=== PATIENT | female | born 1960 | race Hispanic/Latino ===

== ENCOUNTER 2019-03-06 03:20 | Inpatient (IN) | payer OTHER ==
[2019-03-06] MEDS ORDERED: NALOXONE 2 MG/2 ML INJ ONE (03:42)
[2019-03-06 03:58] LABS: Basophils # (Auto) 0.1 K/mm3 (0.0-0.1); Basophils % (Auto) 0.6 % (0.0-1.8); Eosinophils # (Auto) 0.4 K/mm3 (0.0-0.4); Hematocrit 40.4 % (30.3-42.9); Hemoglobin 13.2 gm/dl (10.1-14.3); Lymphocytes # (Auto) 3.6 K/mm3 (1.2-5.4); Lymphocytes % (Auto) 18.5 % (13.4-35.0); Mean Corpuscular HGB Conc 33 % (30-34); Mean Corpuscular Volume 92 fl (79-97); Monocytes # (Auto) 2.4 K/mm3 (0.0-0.8); Monocytes % (Auto) 12.4 % (0.0-7.3); Platelet Count 458 K/mm3 (140-440); Red Blood Count 4.39 M/mm3 (3.65-5.03); Red Cell Distribution Width 15.5 % (13.2-15.2)
[2019-03-06] MEDS ORDERED: ETOMIDATE 20 MG/10 ML INJ IV ONE ×2 (04:08→04:10)
[2019-03-06] MEDS ORDERED: LIDOCAINE PF 100 MG/5 ML (CARDIAC SYRINGE) IV ONE ×2 (04:10→06:24)
[2019-03-06 04:11] LABS: INR 1.16 (0.87-1.13)
[2019-03-06 04:12] LABS: Partial Thromboplastin Time 30.4 Sec. (24.2-36.6)
[2019-03-06] MEDS ORDERED: MIDAZOLAM 5 MG/5 ML INJ MDV IV ONE (04:15)
[2019-03-06] MEDS ORDERED: LORazepam 2 MG/ML VIAL ONE (04:16)
[2019-03-06] MEDS ORDERED: MIDAZOLAM 2 MG/2 ML INJ IV PRN (04:18)
[2019-03-06] MEDS ORDERED: MINERAL OIL/PETROLATUM, WHITE OPHTH OINT 3.5 GM OU PRN (04:18)
[2019-03-06] MEDS ORDERED: LIP THERAPY VASELINE TP PRN (04:18)
[2019-03-06] MEDS ORDERED: SODIUM CHLORIDE 0.9% 1000 ML 1,000 ML ONE (04:22)
[2019-03-06 04:23] LABS: Albumin 3.6 g/dL (3.9-5); BUN/Creatinine Ratio 55; Blood Urea Nitrogen 44 mg/dL (7-17); Calcium 9.5 mg/dL (8.4-10.2); Hemolysis Index 119
--- NOTE | 2019-03-06 04:24 | Event Note ---
Date: 03/06/19 (Intubation) Called from ER to assist with airway management. 58 y/o WF with throat cancer s/p XRT and chemo at [facility] who provided some history as well as photos of OP and cords from ENT this past . [id number] MEDS: Etomidate 20 mg and Lidocaine 100 mg Glidescope X 1 attempt-7.0 OETT easily passed (20 cm at gumline) +BBS/CO2 VSS ER Doc on standby with trach kit and neck was prepped with Betadine
--- NOTE | 2019-03-06 04:41 | XRay Report ---
CHEST 1 VIEW INDICATION: et placement. COMPARISON: None. FINDINGS: Support devices: New endotracheal tube, NG tube and left subclavian chest port in satisfactory positi on. Heart: Within normal limits. Lungs/Pleura: Underlying COPD and increased interstitial markings. Slightly more localized parenchyma l opacity at the right base. Additional findings: None. IMPRESSION: 1. Lines and tubes in satisfactory position. 2. Chronic changes of COPD. 3. Slightly more localized changes at the right base. It is uncertain if this is a chronic finding or represents superimposed infiltrate. Signer Name: Chad Toro MD Signed: 03/06/2019 4:37 AM Workstation Name: [id number]
[2019-03-06 04:48] LABS: Alanine Aminotransferase 12 units/L (7-56)
[2019-03-06] MEDS ORDERED: SODIUM CHLORIDE 0.9% 1000 ML IV SOLN IV ONE (04:49)
[2019-03-06] MEDS ORDERED: PIPERACIL/TAZOBACTA 4.5/NS 100 4.5 GM/100 ML VIAL IV ONE (04:49)
--- NOTE | 2019-03-06 04:54 | Emergency Department Report ---
ED Shortness of Breath HPI - General Chief Complaint: Altered Mental Status Stated Complaint: ANYI Source: family, EMS Mode of arrival: Stretcher Limitations: Altered Mental Status - History of Present Illness Initial Comments: 58-year-old female with a past medical history laryngeal cancer diagnosed mar 2018 presents to the hospital with respiratory distress and alteration in mental status. Family states that patient developed shortness of breath during the night and requested to come to the hospital. Family Attempted to transport patient however her respiratory distress increased and she became less responsive. Patient was transported by EMS and arrives on supplemental oxygen mask satting 96% with tachypnea, stridor, and accessory muscle use. Patient is not responsive to painful stimuli. She cannot speak at her baseline and presents with a PEG tube. Patient completed chemotherapy and radiation in December. She was just seen 2 days ago on the by her ENT doctor. Her has pictures on his phone of the patient's larynx which shows cancerous lesions at the vocal cords. Pr does not have advanced directives in place and is a full code as per . ENT doctor is affiliated with [facility] - Related Data Allergies Allergy/AdvReac Type Severity Reaction Status Date / Time No Known Allergies Allergy Unverified 03/06/19 03:42 ED Review of Systems ROS: Stated complaint: ANYI Other details as noted in HPI Comment: Unobtainable due to pts medical conditions ED Past Medical Hx - Past Medical History Previous Medical History?: Yes Additional medical history: THROAT CANCER 04/06 - Social History Smoking Status: Never Smoker ED Physical Exam - General Limitations: Altered Mental Status - Other Other exam information: General: No acute distress Head: Atraumatic Eyes: normal appearance ENT: Moist mucous membranes, no surgical scars to neck Neck: Normal appearance, no midline tenderness Chest: Tachypnea, expiratory stridor, accessory muscle use CV: Tachycardic regular rhythm Abdomen: Soft, normal bowel sounds, nontender, + peg Extremity: Normal inspection infection Neuro: Lethargic, would not follow commands, does not attempt to speak, moves spontaneously but does not withdraw to pain Psych: Appropriate behavior Skin: No rash ED Course Vital Signs 03/06/19 03/06/19 03/06/19 03:20 03:30 03:45 Temperature Pulse Rate 114 H 113 H 113 H Respiratory 25 H 23 23 Rate Blood Pressure 176/89 175/96 176/89 Blood Pressure [Left] O2 Sat by Pulse 100 97 92 Oximetry 03/06/19 03/06/19 03/06/19 04:00 04:15 04:30 Temperature Pulse Rate 123 H 128 H 113 H Respiratory 26 H 21 16 Rate Blood Pressure 165/80 165/80 117/62 Blood Pressure [Left] O2 Sat by Pulse 90 97 98 Oximetry 03/06/19 03/06/19 03/06/19 04:41 04:45 05:00 Temperature 97.9 F Pulse Rate 113 H 115 H 111 H Respiratory 18 19 17 Rate Blood Pressure 107/66 111/70 Blood Pressure 101/66 [Left] O2 Sat by Pulse 100 99 94 Oximetry 03/06/19 03/06/19 03/06/19 05:15 05:30 05:45 Temperature Pulse Rate 105 H 107 H 93 H Respiratory 18 15 18 Rate Blood Pressure 99/65 96/75 106/61 Blood Pressure [Left] O2 Sat by Pulse 100 100 100 Oximetry ED Medical Decision Making - Lab Data Result diagrams: 03/06/19 Unknown 03/06/19 Unknown Lab Results 03/06/19 03/06/19 03/06/19 Range/Units 04:59 05:05 05:18 WBC (4.5-11.0) K/mm3 RBC (3.65-5.03) M/mm3 Hgb (10.1-14.3) gm/dl Hct (30.3-42.9) % MCV (79-97) fl MCH (28-32) pg MCHC (30-34) % RDW (13.2-15.2) % Plt Count (140-440) K/mm3 Lymph % (Auto) (13.4-35.0) % [place] % (Auto) (0.0-7.3) % Eos % (Auto) (0.0-4.3) % Baso % (Auto) (0.0-1.8) % Lymph # (1.2-5.4) K/mm3 [place] # (0.0-0.8) K/mm3 Eos # (0.0-0.4) K/mm3 Baso # (0.0-0.1) K/mm3 Seg Neutrophils % (40.0-70.0) % Seg Neutrophils # (1.8-7.7) K/mm3 PT 14.8 (12.2-14.9) Sec. INR 1.17 H (0.87-1.13) APTT 28.1 (24.2-36.6) Sec. POC ABG pH 7.384 (7.35-7.45) POC ABG pCO2 48.9 H (35-45) POC ABG pO2 393 H (80-105) POC ABG HCO3 29.2 (22-26 mml/L) POC ABG Total CO2 31 (23-27mmol/L) POC ABG O2 Sat 100 POC ABG Base Excess 4 ((-2) - (+3)mmol/L) FiO2 100 % Sodium (137-145) mmol/L Potassium (3.6-5.0) mmol/L Chloride (98-107) mmol/L Carbon Dioxide (22-30) mmol/L Anion Gap mmol/L BUN (7-17) mg/dL Creatinine (0.7-1.2) mg/dL Estimated GFR ml/min BUN/Creatinine Ratio % Glucose (65-100) mg/dL Lactic Acid 2.00 (0.7-2.0) mmol/L Calcium (8.4-10.2) mg/dL Total Bilirubin (0.1-1.2) mg/dL AST (5-40) units/L ALT (7-56) units/L Alkaline Phosphatase (35-129) units/L Troponin T (0.00-0.029) ng/mL Total Protein (6.3-8.2) g/dL Albumin (3.9-5) g/dL Albumin/Globulin Ratio % Urine Color (Yellow) Urine Turbidity (Clear) Urine pH (5.0-7.0) Ur Specific [place] (1.003-1.030) Urine Protein (Negative) mg/dL Urine Glucose (UA) (Negative) mg/dL Urine Ketones (Negative) mg/dL Urine Blood (Negative) Urine Nitrite (Negative) Urine Bilirubin (Negative) Urine Urobilinogen (<2.0) mg/dL Ur Leukocyte Esterase (Negative) Urine WBC (Auto) (0.0-6.0) /HPF Urine RBC (Auto) (0.0-6.0) /HPF U Epithel Cells (Auto) (0-13.0) /HPF Urine Bacteria (Auto) (Negative) /HPF Granular Casts /LPF Urine Mucus /HPF 11/17/19 11/17/19 11/17/19 Range/Units Unknown Unknown Unknown WBC 19.7 H (4.5-11.0) K/mm3 RBC 4.39 (3.65-5.03) M/mm3 Hgb 13.2 (10.1-14.3) gm/dl Hct 40.4 (30.3-42.9) % MCV 92 (79-97) fl MCH 30 (28-32) pg MCHC 33 (30-34) % RDW 15.5 H (13.2-15.2) % Plt Count 458 H (140-440) K/mm3 Lymph % (Auto) 18.5 (13.4-35.0) % [place] % (Auto) 12.4 H (0.0-7.3) % Eos % (Auto) 2.0 (0.0-4.3) % Baso % (Auto) 0.6 (0.0-1.8) % Lymph # 3.6 (1.2-5.4) K/mm3 [place] # 2.4 H (0.0-0.8) K/mm3 Eos # 0.4 (0.0-0.4) K/mm3 Baso # 0.1 (0.0-0.1) K/mm3 Seg Neutrophils % 66.5 (40.0-70.0) % Seg Neutrophils # 13.1 H (1.8-7.7) K/mm3 PT 14.7 (12.2-14.9) Sec. INR 1.16 H (0.87-1.13) APTT 30.4 (24.2-36.6) Sec. POC ABG pH (7.35-7.45) POC ABG pCO2 (35-45) POC ABG pO2 (80-105) POC ABG HCO3 (22-26 mml/L) POC ABG Total CO2 (23-27mmol/L) POC ABG O2 Sat POC ABG Base Excess ((-2) - (+3)mmol/L) FiO2 % Sodium 135 L (137-145) mmol/L Potassium 4.3 (3.6-5.0) mmol/L Chloride 91.7 L (98-107) mmol/L Carbon Dioxide 24 (22-30) mmol/L Anion Gap 24 mmol/L BUN 44 H (7-17) mg/dL Creatinine 0.8 (0.7-1.2) mg/dL Estimated GFR > 60 ml/min BUN/Creatinine Ratio 55 % Glucose 273 H (65-100) mg/dL Lactic Acid (0.7-2.0) mmol/L Calcium 9.5 (8.4-10.2) mg/dL Total Bilirubin < 0.20 (0.1-1.2) mg/dL AST 22 (5-40) units/L ALT 12 (7-56) units/L Alkaline Phosphatase 111 (35-129) units/L Troponin T < 0.010 (0.00-0.029) ng/mL Total Protein 6.8 (6.3-8.2) g/dL Albumin 3.6 L (3.9-5) g/dL Albumin/Globulin Ratio 1.1 % Urine Color (Yellow) Urine Turbidity (Clear) Urine pH (5.0-7.0) Ur Specific [place] (1.003-1.030) Urine Protein (Negative) mg/dL Urine Glucose (UA) (Negative) mg/dL Urine Ketones (Negative) mg/dL Urine Blood (Negative) Urine Nitrite (Negative) Urine Bilirubin (Negative) Urine Urobilinogen (<2.0) mg/dL Ur Leukocyte Esterase (Negative) Urine WBC (Auto) (0.0-6.0) /HPF Urine RBC (Auto) (0.0-6.0) /HPF U Epithel Cells (Auto) (0-13.0) /HPF Urine Bacteria (Auto) (Negative) /HPF Granular Casts /LPF Urine Mucus /HPF 03/06/19 Range/Units Unknown WBC (4.5-11.0) K/mm3 RBC (3.65-5.03) M/mm3 Hgb (10.1-14.3) gm/dl Hct (30.3-42.9) % MCV (79-97) fl MCH (28-32) pg MCHC (30-34) % RDW (13.2-15.2) % Plt Count (140-440) K/mm3 Lymph % (Auto) (13.4-35.0) % [place] % (Auto) (0.0-7.3) % Eos % (Auto) (0.0-4.3) % Baso % (Auto) (0.0-1.8) % Lymph # (1.2-5.4) K/mm3 [place] # (0.0-0.8) K/mm3 Eos # (0.0-0.4) K/mm3 Baso # (0.0-0.1) K/mm3 Seg Neutrophils % (40.0-70.0) % Seg Neutrophils # (1.8-7.7) K/mm3 PT (12.2-14.9) Sec. INR (0.87-1.13) APTT (24.2-36.6) Sec. POC ABG pH (7.35-7.45) POC ABG pCO2 (35-45) POC ABG pO2 (80-105) POC ABG HCO3 (22-26 mml/L) POC ABG Total CO2 (23-27mmol/L) POC ABG O2 Sat POC ABG Base Excess ((-2) - (+3)mmol/L) FiO2 % Sodium (137-145) mmol/L Potassium (3.6-5.0) mmol/L Chloride (98-107) mmol/L Carbon Dioxide (22-30) mmol/L Anion Gap mmol/L BUN (7-17) mg/dL Creatinine (0.7-1.2) mg/dL Estimated GFR ml/min BUN/Creatinine Ratio % Glucose (65-100) mg/dL Lactic Acid (0.7-2.0) mmol/L Calcium (8.4-10.2) mg/dL Total Bilirubin (0.1-1.2) mg/dL AST (5-40) units/L ALT (7-56) units/L Alkaline Phosphatase (35-129) units/L Troponin T (0.00-0.029) ng/mL Total Protein (6.3-8.2) g/dL Albumin (3.9-5) g/dL Albumin/Globulin Ratio % Urine Color Yellow (Yellow) Urine Turbidity Hazy (Clear) Urine pH 5.0 (5.0-7.0) Ur Specific [place] 1.015 (1.003-1.030) Urine Protein 100 mg/dl (Negative) mg/dL Urine Glucose (UA) 50 (Negative) mg/dL Urine Ketones Neg (Negative) mg/dL Urine Blood Neg (Negative) Urine Nitrite Neg (Negative) Urine Bilirubin Neg (Negative) Urine Urobilinogen < 2.0 (<2.0) mg/dL Ur Leukocyte Esterase Neg (Negative) Urine WBC (Auto) 9.0 H (0.0-6.0) /HPF Urine RBC (Auto) 3.0 (0.0-6.0) /HPF U Epithel Cells (Auto) 1.0 (0-13.0) /HPF Urine Bacteria (Auto) 1+ (Negative) /HPF Granular Casts 3 /LPF Urine Mucus Few /HPF - EKG Data -: EKG Interpreted by Me EKG shows normal: sinus rhythm, ST-T waves (no stemi) Rate: tachycardia (117) - Radiology Data Radiology results: report reviewed CHEST 1 VIEW INDICATION: et placement. COMPARISON: None. FINDINGS: Support devices: New endotracheal tube, NG tube and left subclavian chest port in satisfactory position. Heart: Within normal limits. Lungs/Pleura: Underlying COPD and increased interstitial markings. Slightly more localized parenchymal opacity at the right base. Additional findings: None. IMPRESSION: 1. Lines and tubes in satisfactory position. 2. Chronic changes of COPD. 3. Slightly more localized changes at the right base. It is uncertain if this is a chronic finding or represents superimposed infiltrate. - Medical Decision Making Patient presented in respiratory distress with alteration of mental status with stridor. Patient did present with fentanyl patch and takes oxycodone therefore Narcan 1 mg was given prior to intubation without improvement in mental status. Anesthesia was called to assist with intubation with cric set up at the bedside given the patient's laryngeal cancer involves the vocal cords. Patient was successfully intubated by anesthesia please see note. Patient treated with Zosyn given her leukocytosis and a 30ml/kg bolus of normal saline. Cultures and lactic acid pending at disposition. - Differential Diagnosis laryngeal cancer, airway obstruction, copd, co2 rention, pe, pneumonia, Critical Care Time: Yes Critical care time in (mins) excluding proc time.: 35 Critical care attestation.: If time is entered above; I have spent that time in minutes in the direct care of this critically ill patient, excluding procedure time. ED Disposition Clinical Impression: Laryngeal cancer, Stridor, Respiratory distress, Required emergency intubation Disposition: OP ADMIT IP TO THIS HOSP Is pt being admited?: Yes Condition: Stable Time of Disposition: 04:57 (Dr Pelaez)
[2019-03-06] MEDS ORDERED: MIDAZOLAM 100 MG in SODIUM CHLORIDE 0.9% 80 ML IV SCH (05:00)
[2019-03-06 05:32] LABS: INR 1.17 (0.87-1.13)
[2019-03-06 05:33] LABS: Partial Thromboplastin Time 28.1 Sec. (24.2-36.6)
[2019-03-06 05:36] LABS: Bacteria,Urine 1+ /HPF (Negative); Bilirubin,Urine NEG (Negative); Blood,Urine NEG (Negative); Color,Urine Yellow (Yellow); Granular Casts,Urine 3 /LPF; Mucus,Urine FEW /HPF; Urobilinogen,Urine < 2.0 mg/dL (<2.0)
[2019-03-06] MEDS ORDERED: ALBUTEROL 2.5 MG/3 ML NEBU IH PRN (05:37)
--- NOTE | 2019-03-06 05:46 | History and Physical Report ---
History of Present Illness Date of examination: 03/06/19 Date of admission: 03/06/19 Chief complaint: Shortness of breath Chronic congestion History of present illness: Patient is a 58-year-old white female with known history of laryngeal cancer status post radiation and chemotherapy treatment. She is brought to the emergency room today with shortness of breath and increased secretion and congestion on her throat. According to who is by the bedside patient has been having mild chills over the last few days. There has been no fever. No chest pain and no nausea or vomiting. Upon arrival in the emergency room she was in respiratory distress and also having stridor, she was subsequently intubated. Her work-up in the emergency room reveals leukocytosis of 19,000 and a chest x- ray reveals COPD changes and possible infiltrate in the right base. Chemistry also reveals mild dehydration and hyperglycemia. Past History Past Medical History: other (Laryngeal cancer status post radiation and chemotherapy) Past Surgical History: Other (History of PEG tube placement, port placement on the left anterior chest wall) Social history: smoking (Has since quit tobacco use) Family history: no significant family history Medications and Allergies Allergies Allergy/AdvReac Type Severity Reaction Status Date / Time No Known Allergies Allergy Unverified 03/06/19 03:42 Active Meds: Active Medications Albuterol (Proventil) 2.5 mg IH Q3HRT PRN PRN Reason: Shortness Of Breath Heparin Sodium (Porcine) (Heparin) 5,000 unit SUB-Q Q8HR GEMMA Hydrophilic Ointment (Vaseline Lip Therapy) 1 applic TP Q2HR PRN PRN Reason: Dry Lips Midazolam HCl 100 mg/ Sodium (Chloride) 100 mls @ 2 mls/hr IV TITR GEMMA; Protocol Last Admin: 03/06/19 04:59 Dose: 2 mg/hr, 2 mls/hr Documented by: Sodium Chloride (Nacl 0.9% 1000 Ml) 1,000 mls @ 75 mls/hr IV DIRECT GEMMA Midazolam HCl (Versed) 2 mg IV Q10MIN PRN PRN Reason: Sedation Multi-Ingred Cream/Lotion/Oil/Oint (Artificial Tears Ophth Oint) 1 applic OU Q4HR PRN PRN Reason: Dry Eye(s) Ondansetron HCl (Zofran) 4 mg IV Q8H PRN PRN Reason: Nausea And Vomiting Sodium Chloride (Sodium Chloride Flush Syringe 10 Ml) 10 ml IV BID GEMMA Sodium Chloride (Sodium Chloride Flush Syringe 10 Ml) 10 ml IV PRN PRN PRN Reason: LINE FLUSH Review of Systems Respiratory: shortness of breath, congestion Exam - Constitutional Vitals: Temp Pulse Resp BP Pulse Ox 97.9 F 107 H 15 96/75 100 03/06/19 04:41 03/06/19 05:30 03/06/19 05:30 03/06/19 05:30 03/06/19 05:30 General appearance: Present: well-nourished, other (Intubated and sedated) - EENT Eyes: Present: PERRL, EOM intact ENT: clear oral mucosa, dentition normal - Neck Neck: Present: supple, normal ROM - Respiratory Respiratory effort: other (Currently intubated) Respiratory: bilateral: CTA - Cardiovascular Rhythm: other (Port on the left anterior chest wall) Heart Sounds: Present: S1 & S2 - Extremities Extremities: no ischemia, pulses symmetrical, No edema Peripheral Pulses: within normal limits - Abdominal General gastrointestinal: Present: soft, non-tender, non-distended, other (PEG tube in place) - Integumentary Integumentary: Present: clear, warm, dry - Neurologic Neurologic: other (She is currently intubated and sedated) Results - Labs CBC & Chem 7: 03/06/19 Unknown 03/06/19 Unknown Labs: Abnormal lab results 03/06/19 03/06/19 03/06/19 Range/Units 05:05 05:18 Unknown WBC 19.7 H (4.5-11.0) K/mm3 RDW 15.5 H (13.2-15.2) % Plt Count 458 H (140-440) K/mm3 [place] % (Auto) 12.4 H (0.0-7.3) % [place] # 2.4 H (0.0-0.8) K/mm3 Seg Neutrophils # 13.1 H (1.8-7.7) K/mm3 INR 1.17 H (0.87-1.13) POC ABG pCO2 48.9 H (35-45) POC ABG pO2 393 H (80-105) Sodium (137-145) mmol/L Chloride (98-107) mmol/L BUN (7-17) mg/dL Glucose (65-100) mg/dL Albumin (3.9-5) g/dL Urine WBC (Auto) (0.0-6.0) /HPF 03/06/19 03/06/19 03/06/19 Range/Units Unknown Unknown Unknown WBC (4.5-11.0) K/mm3 RDW (13.2-15.2) % Plt Count (140-440) K/mm3 [place] % (Auto) (0.0-7.3) % [place] # (0.0-0.8) K/mm3 Seg Neutrophils # (1.8-7.7) K/mm3 INR 1.16 H (0.87-1.13) POC ABG pCO2 (35-45) POC ABG pO2 (80-105) Sodium 135 L (137-145) mmol/L Chloride 91.7 L (98-107) mmol/L BUN 44 H (7-17) mg/dL Glucose 273 H (65-100) mg/dL Albumin 3.6 L (3.9-5) g/dL Urine WBC (Auto) 9.0 H (0.0-6.0) /HPF Assessment and Plan - Patient Problems (1) Respiratory distress Current Visit: Yes Status: Acute Plan to address problem: Etiology is unclear however patient has known history of laryngeal cancer and she has been quite congested lately. She is currently intubated and sedated secondary to the respiratory distress. Will monitor ABG and also request her labor expediter for further evaluation and recommendation. She will be monitored in the intensive care unit. (2) Laryngeal cancer Current Visit: Yes Status: Acute Plan to address problem: She is status post radiation and chemotherapy. (3) Dehydration Current Visit: Yes Status: Acute Plan to address problem: She is placed on IV fluid normal saline. Will monitor BUN and creatinine. (4) Hyperglycemia Current Visit: Yes Status: Acute Plan to address problem: Patient does not have any known history of diabetes mellitus however she was found to be hyperglycemic. We will place on sliding scale insulin. We will monitor blood glucose closely. We will also check hemoglobin A1c. (5) DVT prophylaxis Current Visit: Yes Status: Acute Plan to address problem: She is placed on subcutaneous heparin. (6) Full code status Current Visit: Yes Status: Acute
[2019-03-06] MEDS: SODIUM CHLORIDE 0.9% 1000 ML 1,000 ML IV SCH ×2 (06:10→18:05)
[2019-03-06] MEDS: PIPERACIL/TAZOBACTA 4.5/NS 100 4.5 GM/100 ML VIAL IV SCH ×3 (06:10→22:44)
[2019-03-06] MEDS ORDERED: LORazepam 2 MG/ML VIAL IV ONE (06:24)
[2019-03-06] MEDS ORDERED: NALOXONE 2 MG/2 ML INJ IV ONE (06:25)
[2019-03-06] MEDS ORDERED: DEXTROSE 50% IN WATER (25GM) 50 ML SYRINGE IV PRN (06:26)
[2019-03-06] MEDS: HEPARIN 5,000 UNIT/1 ML VIAL SUB-Q SCH ×3 (06:40→22:44)
[2019-03-06] MEDS ORDERED: SIMPLE SYRUP 15 ML FEEDTUBE PRN ×2 (08:25)
[2019-03-06] MEDS ORDERED: SODIUM BICARBONATE 325 MG TAB FEEDTUBE PRN (08:25)
[2019-03-06] MEDS ORDERED: LIPASE 10,500/PROTEASE 25,000/AMYLASE 43,750 (UNITS) DR CAP FEEDTUBE PRN (08:25)
[2019-03-06] MEDS: INSULIN LISPRO 100 UNIT/ML SUB-Q SCH ×3 (11:09→18:06)
--- NOTE | 2019-03-06 12:10 | Consultation ---
History of Present Illness Consult date: 03/06/19 Requesting physician: LAM DIAZ Reason for consult: other (Acute hypoxic resp failure; acute toxic-metabolic encephalopathy; upper airway obstruction; laryngeal carcinoma) History of present illness: 58-year-old female with a past medical history laryngeal cancer diagnosed 04/06 presented to the [facility] ED with respiratory distress and alteration in mental status. Family states that patient developed shortness of breath during the night and requested to come to the hospital. attempted to transport patient however her respiratory distress increased and she became less responsive. Patient was transported by EMS and arrived on supplemental oxygen mask with saturations of 96% with tachypnea, stridor and accessory muscle use. Patient was not responsive to painful stimuli. She cannot speak at her baseline and presents with a PEG tube. Patient completed chemotherapy and radiation in December 2018. She was just seen 2 days ago on the by her ENT doctor. Her has pictures on his phone of the patient's larynx which shows cancerous lesions at the left vocal cords. Patient does not have advanced directives in place and is a full code as per . ENT doctor is affiliated with [facility] Past History Past Medical History: other (Laryngeal cancer status post radiation and chemotherapy) Past Surgical History: Other (History of PEG tube placement, port placement on the left anterior chest wall) Social history: smoking (Has since quit tobacco use) Family history: no significant family history Medications and Allergies Allergies Allergy/AdvReac Type Severity Reaction Status Date / Time No Known Allergies Allergy Unverified 03/06/19 03:42 Active Meds: Active Medications Albuterol (Proventil) 2.5 mg IH Q3HRT PRN PRN Reason: Shortness Of Breath Lipase/Protease/Amylase (Pancreaze Dr 10,500 Unit) 1 each FEEDTUBE PRN PRN PRN Reason: For Clogged Feeding Tube Dextrose (D50w (25gm) Syringe) 0 ml IV Q30MIN PRN; Protocol PRN Reason: Hypoglycemia Heparin Sodium (Porcine) (Heparin) 5,000 unit SUB-Q Q8HR GEMMA Last Admin: 03/06/19 06:40 Dose: 5,000 unit Documented by: Hydrophilic Ointment (Vaseline Lip Therapy) 1 applic TP Q2HR PRN PRN Reason: Dry Lips Midazolam HCl 100 mg/ Sodium (Chloride) 100 mls @ 2 mls/hr IV TITR GEMMA; Protocol Last Titration: 03/06/19 09:00 Dose: 0.7 mg/hr, 0.7 mls/hr Documented by: Sodium Chloride (Nacl 0.9% 1000 Ml) 1,000 mls @ 125 mls/hr IV DIRECT [facility] Last Admin: 03/06/19 06:10 Dose: 75 mls/hr Documented by: Piperacillin Sod/Tazobactam Sod (Zosyn/Ns 4.5gm/100ml) 4.5 gm in 100 mls @ 200 mls/hr IV Q8HR GEMMA; Protocol Last Admin: 03/06/19 06:10 Dose: Not Given Documented by: Insulin Human Lispro (Humalog) 0 unit SUB-Q Q6HR [facility]; Protocol Last Admin: 03/06/19 11:09 Dose: Not Given Documented by: Midazolam HCl (Versed) 2 mg IV Q10MIN PRN PRN Reason: Sedation Multi-Ingred Cream/Lotion/Oil/Oint (Artificial Tears Ophth Oint) 1 applic OU Q4HR PRN PRN Reason: Dry Eye(s) Ondansetron HCl (Zofran) 4 mg IV Q8H PRN PRN Reason: Nausea And Vomiting Simple Syrup (Simple Syrup) 15 ml FEEDTUBE PRN PRN PRN Reason: Hypoglycemia Simple Syrup (Simple Syrup) 30 ml FEEDTUBE PRN PRN PRN Reason: Hypoglycemia Sodium Bicarbonate (Sodium Bicarbonate) 325 mg FEEDTUBE PRN PRN PRN Reason: For Clogged Feeding Tube Sodium Chloride (Sodium Chloride Flush Syringe 10 Ml) 10 ml IV BID [facility] Last Admin: 03/06/19 10:00 Dose: 10 ml Documented by: Sodium Chloride (Sodium Chloride Flush Syringe 10 Ml) 10 ml IV PRN PRN PRN Reason: LINE FLUSH Review of Systems ROS unobtainable: due to endotracheal tube, due to mental status Physical Examination Vital signs: Vital Signs Pulse Resp BP Pulse Ox 120 H 25 H 176/89 97 03/06/19 03:20 03/06/19 03:20 03/06/19 03:20 03/06/19 03:20 Reviewed. On mechanical ventilatory support, ETT 7.5cm at 23 cm at the lip OGT in place General: No acute distress Head: Atraumatic, normocephalic ENT: Moist mucous membranes, no surgical scars to neck Neck: Normal appearance, no midline tenderness Chest: Decreased AE bilaterally, CTA CVS: RRR, S1,S2, no murmurs Abdomen: Soft, normal bowel sounds, non tender, + peg Extremity: Normal inspection infection, no peripheral edema, no cyanosis Neuro: Sedated on Midazolam, withdraws to painful stimuli Skin: No rash Results - Laboratory Findings CBC and BMP: 03/06/19 Unknown 03/06/19 Unknown ABG POC ABG pH 7.384 (7.35-7.45) 03/06/19 05:18 POC ABG pCO2 48.9 (35-45) H 03/06/19 05:18 POC ABG pO2 393 (80-105) H 03/06/19 05:18 POC ABG HCO3 29.2 (22-26 mml/L) 03/06/19 05:18 POC ABG Total CO2 31 (23-27mmol/L) 03/06/19 05:18 POC ABG O2 Sat 100 03/06/19 05:18 PT/INR, D-dimer PT 14.7 Sec. (12.2-14.9) 03/06/19 Unknown INR 1.16 (0.87-1.13) H 03/06/19 Unknown Abnormal lab findings: Abnormal Labs 03/06/19 03/06/19 03/06/19 03:37 05:05 05:18 WBC RDW Plt Count [place] % (Auto) [place] # Seg Neutrophils # INR 1.17 H POC ABG pCO2 48.9 H POC ABG pO2 393 H Sodium Chloride BUN Glucose POC Glucose 233 H Lactic Acid Albumin Urine WBC (Auto) 03/06/19 03/06/19 03/06/19 06:34 Unknown Unknown WBC 19.7 H RDW 15.5 H Plt Count 458 H [place] % (Auto) 12.4 H [place] # 2.4 H Seg Neutrophils # 13.1 H INR 1.16 H POC ABG pCO2 POC ABG pO2 Sodium Chloride BUN Glucose POC Glucose Lactic Acid 2.10 H* Albumin Urine WBC (Auto) 03/06/19 03/06/19 Unknown Unknown WBC RDW Plt Count [place] % (Auto) [place] # Seg Neutrophils # INR POC ABG pCO2 POC ABG pO2 Sodium 135 L Chloride 91.7 L BUN 44 H Glucose 273 H POC Glucose Lactic Acid Albumin 3.6 L Urine WBC (Auto) 9.0 H - Diagnostic Findings Chest x-ray: image reviewed (Hyperinflated, no acute infiltrates, ETT in position) Assessment and Plan Acute hypercapnic respiratory failure on MVS Laryngeal carcinoma s/p chemo-radiation Acute toxic-metabolic encephalopathy Oropharyngeal dysphagia s/p PEG -VAP bundle addressed -Aspiration precautions, HOB>40 degrees - Lung protective strategies -CXR, ABG in am -CBC, BMP in am -Daily SAT -Discontinue Garcia catheter and OGT -Enteric nutrition via PEG tube with glycemic control -Agitation and analgesia -VTE prophylaxis -Stress ulcer prophylaxis - Accuchecks with glycemic control for SSI (While critically ill target blood glucose of 140-180 mg/dL; avoid hypoglycemia) - Mobility protocol for pressure ulcer prevention - Monitor hemodynamics closely -Monitor electrolyte profile closely and replete as indicated -Chronic home medications, resume as clinically indicated -Sedation titrate to RAAS of -1 to -2 -Analgesia per CPOE Discussed with her extensively. She will not be extubated, and needs a surgical airway. He said he wanted to [place] with his , to determine advance directives and goals of care in the. She communicated with them with a whisper or with writing on a pad. During a sedation vacation in the morning he can have that "conve rsation" if at all possible with her. I personally spoke with Dr Will Escobar, her ENT surgeon, and he says that at the last appointment he explained that needs a laryngectomy. He has made a referral to [facility] for evaluation and for laryngectomy. I do recommend that in the morning, this be addressed with the patient's and a transfer to [facility] be arranged. I also spoke with Dr. Edmond her Oncologist. Radiation Oncologist is Dr. Castro. CONDITION: CRITICAL PROGNOSIS: GUARDED CODE STATUS: FULL CODE The high probability of a clinically significant, sudden or life-threatening deterioration of the [respiratory, neurology] system(s) required my full and direct attention, intervention and personal management. The aggregate critical care time was [35] minutes without overlap. Time includes spent on; [x] Data Review and interpretation [x] Patient assessment and monitoring of vital signs [x] Documentation [x] Medication orders and management
--- NOTE | 2019-03-06 12:16 | Event Note ---
Date: 03/06/19 Pt seen and examined. We will cont. the plan as outlined in the H and P.
[2019-03-06] MEDS ORDERED: FAMOTIDINE 20 MG TAB FEEDTUBE SCH (13:00)
--- NOTE | 2019-03-07 03:10 | XRay Report ---
CHEST 1 VIEW INDICATION: follow up respiratory failure. COMPARISON: Previous day. FINDINGS: Support devices: Unchanged. Heart: Within normal limits. Lungs/Pleura: Improving right basilar infiltrate. No new abnormality. Additional findings: None. IMPRESSION: Improving right basilar infiltrate. Signer Name: Chad Toro MD Signed: 03/07/2019 3:06 AM Workstation Name: [id number]
[2019-03-07] MEDS: INSULIN LISPRO 100 UNIT/ML SUB-Q SCH ×4 (05:52→23:55)
[2019-03-07 06:12] LABS: Basophils # (Auto) 0.1 K/mm3 (0.0-0.1); Basophils % (Auto) 0.8 % (0.0-1.8); Eosinophils # (Auto) 0.1 K/mm3 (0.0-0.4); Eosinophils % (Auto) 1.2 % (0.0-4.3); Hemoglobin 11.6 gm/dl (10.1-14.3); Lymphocytes % (Auto) 11.3 % (13.4-35.0); Mean Corpuscular HGB Conc 33 % (30-34); Mean Corpuscular Volume 90 fl (79-97); Monocytes # (Auto) 1.2 K/mm3 (0.0-0.8); Monocytes % (Auto) 13.6 % (0.0-7.3); Platelet Count 330 K/mm3 (140-440); Red Blood Count 3.91 M/mm3 (3.65-5.03); Red Cell Distribution Width 15.8 % (13.2-15.2)
[2019-03-07] MEDS: HEPARIN 5,000 UNIT/1 ML VIAL SUB-Q SCH ×3 (06:13→21:31)
[2019-03-07] MEDS: PIPERACIL/TAZOBACTA 4.5/NS 100 4.5 GM/100 ML VIAL IV SCH (06:13)
[2019-03-07] MEDS: SODIUM CHLORIDE 0.9% 1000 ML 1,000 ML IV SCH ×2 (06:14→11:34)
[2019-03-07 06:22] LABS: INR 1.21 (0.87-1.13)
[2019-03-07 06:23] LABS: Partial Thromboplastin Time 32.6 Sec. (24.2-36.6)
[2019-03-07 06:36] LABS: BUN/Creatinine Ratio 33; Blood Urea Nitrogen 23 mg/dL (7-17); Calcium 8.7 mg/dL (8.4-10.2); Hemolysis Index 14
--- NOTE | 2019-03-07 09:21 | Progress Note ---
Assessment and Plan Acute hypercapnic respiratory failure on MVS Laryngeal carcinoma s/p chemo-radiation Acute toxic-metabolic encephalopathy Oropharyngeal dysphagia s/p PEG (Discussed risk of complete airway occlusion with extubation and need for evaluation by ENT for laryngectomy vs tracheostomy with patient and ) - contact [place] transfer line - keep intubated - begin daily SAT's and SBT assessment as tolerated in am - ABG after 2 hours on PSV - VAP bundle addressed (Aspiration precautions, HOB > 40 degrees) - continue Lung protective strategies - continue to wean FIO2 for O2 sats >90% - continue bronchodilators with pulmonary hygiene per RT - daily CXR's & ABG's acutely - enteral nutrition and advance to goal rate as tolerated - continue agitation management / Pain management per CPOT - follow clinically off AB's - continue VTE prophylaxis - continue stress ulcer prophylaxis - continue accuchecks with glycemic control for SSI (While critically ill target blood glucose of 140-180 mg/dL; avoid hypoglycemia) - Continue mobility protocol for pressure ulcer prevention - Continue to monitor hemodynamics closely - Monitor electrolyte profile closely and replete as indicated - continue chronic home medications per attending and as clinically indicated - continue other care per attending / other consultants CONDITION: CRITICAL PROGNOSIS: GUARDED-POOR CODE STATUS: FULL CODE The high probability of a clinically significant, sudden or life-threatening deterioration of the [cardiac, respiratory & neurologic] system(s) required my full and direct attention, intervention and personal management. The aggregate critical care time was [34] minutes without overlap. Time includes spent on; [x] Data Review and interpretation [x] Patient assessment and monitoring of vital signs [x] Documentation [x] Medication orders and management Subjective Date of service: 03/07/19 Principal diagnosis: Ac hypercapnic resp failure; Laryngeal CA Acute encephalopathy (toxic/met) Interval history: Patient is seen today for: Acute hypercapnic respiratory failure; Laryngeal carcinoma s/p chemo-radiation; Acute toxic-metabolic encephalopathy; Oropharyngeal dysphagia; s/p PEG Seen and examined at bedside; 24hour events reviewed; nursing and respiratory care staff consulted; no adverse overnight events reported to me; resting in bed; remaisn on MVS; still with evidence of upper airway obstruction; denies acute chest pains or palpitations; No N/V/F/C Objective Vital Signs - 12hr 03/06/19 03/06/19 03/06/19 21:31 22:00 22:03 Temperature Pulse Rate 91 H 82 93 H Pulse Rate [ From Monitor] Respiratory 18 18 Rate Blood Pressure 111/71 129/75 129/75 O2 Sat by Pulse 100 99 100 Oximetry 03/06/19 03/06/19 03/06/19 22:31 23:00 23:29 Temperature Pulse Rate 87 88 103 H Pulse Rate [ From Monitor] Respiratory 18 26 H 19 Rate Blood Pressure 129/75 125/75 125/75 O2 Sat by Pulse 99 99 Oximetry 03/06/19 03/07/19 03/07/19 23:31 00:00 00:30 Temperature 98.8 F Pulse Rate 100 H 86 92 H Pulse Rate [ 87 From Monitor] Respiratory 18 18 18 Rate Blood Pressure 125/75 125/75 125/68 O2 Sat by Pulse 98 100 100 Oximetry 03/07/19 03/07/19 03/07/19 00:38 01:00 01:30 Temperature Pulse Rate 95 H 105 H 82 Pulse Rate [ From Monitor] Respiratory 18 18 Rate Blood Pressure 125/68 120/65 120/65 O2 Sat by Pulse 100 98 100 Oximetry 03/07/19 03/07/19 03/07/19 02:00 02:30 03:00 Temperature Pulse Rate 89 86 89 Pulse Rate [ From Monitor] Respiratory 18 15 33 H Rate Blood Pressure 130/68 130/68 121/72 O2 Sat by Pulse 99 Oximetry 03/07/19 03/07/19 03/07/19 03:30 04:00 04:25 Temperature 98.4 F Pulse Rate 93 H 94 H 85 Pulse Rate [ 84 From Monitor] Respiratory 16 20 Rate Blood Pressure 121/72 122/66 122/66 O2 Sat by Pulse 99 95 99 Oximetry 03/07/19 03/07/19 03/07/19 04:30 05:00 06:00 Temperature Pulse Rate 92 H 87 118 H Pulse Rate [ From Monitor] Respiratory 19 17 22 Rate Blood Pressure 122/66 122/66 130/93 O2 Sat by Pulse 99 97 96 Oximetry 03/07/19 03/07/19 03/07/19 06:30 07:00 07:30 Temperature Pulse Rate 104 H 141 H 122 H Pulse Rate [ From Monitor] Respiratory 18 43 H 16 Rate Blood Pressure 130/93 130/93 131/83 O2 Sat by Pulse 99 94 100 Oximetry 03/07/19 03/07/19 03/07/19 07:44 08:00 08:30 Temperature 98.7 F Pulse Rate 108 H 102 H 115 H Pulse Rate [ 110 H From Monitor] Respiratory 18 18 Rate Blood Pressure 131/83 125/69 125/69 O2 Sat by Pulse 100 100 100 Oximetry Constitutional: alert, appears uncomfortable, other (middle aged AAF, normocephalic and atraumatic with mildly increased resp effort at rest) Eyes: non-icteric ENT: oropharynx moist, other (ETT 23-24 cm LISA) Neck: supple, no lymphadenopathy, no JVD Effort: mildly labored Ascultation: Bilateral: clear, diminished breath sounds Percussion: Bilateral: not dull Cardiovascular: regular rate and rhythm Gastrointestinal: normoactive bowel sounds, soft, non-tender, non-distended Integumentary: normal Extremities: no cyanosis, no edema, pink and warm, pulses normal, no ischemia or petechiae Neurologic: normal mental status, non-focal exam, pupils equal and round, CN II- XII normal Psychiatric: anxious CBC and BMP: 03/07/19 05:54 03/07/19 05:54 ABG, PT/INR, D-dimer: ABG POC ABG pH 7.487 (7.35-7.45) H 03/07/19 04:43 POC ABG pCO2 38.8 (35-45) 03/07/19 04:43 POC ABG pO2 131 (80-105) H 03/07/19 04:43 POC ABG HCO3 29.4 (22-26 mml/L) 03/07/19 04:43 POC ABG Total CO2 31 (23-27mmol/L) 03/07/19 04:43 POC ABG O2 Sat 99 03/07/19 04:43 PT/INR, D-dimer PT 15.2 Sec. (12.2-14.9) H 03/07/19 05:54 INR 1.21 (0.87-1.13) H 03/07/19 05:54 Abnormal lab findings: Abnormal Labs 03/06/19 03/06/19 03/06/19 03:37 05:05 05:18 WBC RDW Plt Count Lymph % (Auto) [place] % (Auto) Lymph # [place] # Seg Neutrophils % Seg Neutrophils # PT INR 1.17 H POC ABG pH POC ABG pCO2 48.9 H POC ABG pO2 393 H Sodium Potassium Chloride BUN Glucose POC Glucose 233 H Lactic Acid Albumin Urine WBC (Auto) 03/06/19 03/06/19 03/06/19 06:34 08:34 23:15 WBC RDW Plt Count Lymph % (Auto) [place] % (Auto) Lymph # [place] # Seg Neutrophils % Seg Neutrophils # PT INR POC ABG pH POC ABG pCO2 POC ABG pO2 Sodium Potassium Chloride BUN Glucose POC Glucose 122 H 110 H Lactic Acid 2.10 H* Albumin Urine WBC (Auto) 03/06/19 03/06/19 03/06/19 Unknown Unknown Unknown WBC 19.7 H RDW 15.5 H Plt Count 458 H Lymph % (Auto) [place] % (Auto) 12.4 H Lymph # [place] # 2.4 H Seg Neutrophils % Seg Neutrophils # 13.1 H PT INR 1.16 H POC ABG pH POC ABG pCO2 POC ABG pO2 Sodium 135 L Potassium Chloride 91.7 L BUN 44 H Glucose 273 H POC Glucose Lactic Acid Albumin 3.6 L Urine WBC (Auto) 03/06/19 03/07/19 03/07/19 Unknown 04:43 05:44 WBC RDW Plt Count Lymph % (Auto) [place] % (Auto) Lymph # [place] # Seg Neutrophils % Seg Neutrophils # PT INR POC ABG pH 7.487 H POC ABG pCO2 POC ABG pO2 131 H Sodium Potassium Chloride BUN Glucose POC Glucose 130 H Lactic Acid Albumin Urine WBC (Auto) 9.0 H 03/07/19 03/07/19 03/07/19 05:54 05:54 05:54 WBC RDW 15.8 H Plt Count Lymph % (Auto) 11.3 L [place] % (Auto) 13.6 H Lymph # 1.0 L [place] # 1.2 H Seg Neutrophils % 73.1 H Seg Neutrophils # PT 15.2 H INR 1.21 H POC ABG pH POC ABG pCO2 POC ABG pO2 Sodium Potassium 3.5 L Chloride BUN 23 H Glucose 123 H POC Glucose Lactic Acid Albumin Urine WBC (Auto) Chest x-ray: image reviewed (improved RLL infiltrate) Allied health notes reviewed: nursing
[2019-03-07] MEDS: FAMOTIDINE 20 MG TAB PO SCH ×2 (09:47→21:31)
--- NOTE | 2019-03-07 11:17 | Progress Note ---
Assessment and Plan (1) Respiratory distress Current Visit: Yes Status: Acute Plan to address problem: Etiology is unclear however patient has known history of laryngeal cancer and she has been quite congested lately. She is currently intubated secondary to the respiratory distress. Will monitor ABG . Pulmonology/Lace Burn Out Tender consult appreciated. She will be monitored in the intensive care unit. (2) Laryngeal cancer Current Visit: Yes Status: Acute Plan to address problem: She is status post radiation and chemotherapy. Waiting for Laryngectomy. Talked with [facility]. Patient was following with [facility] till May 2018 and changed her care to [facility].Details at [facility] not available. Was not accepted for transfer (3) Dehydration Current Visit: Yes Status: Acute Plan to address problem: She is placed on IV fluid normal saline. Will monitor BUN and creatinine. (4) Hyperglycemia Current Visit: Yes Status: Acute Plan to address problem: Patient does not have any known history of diabetes mellitus however she was found to be hyperglycemic. Sliding scale insulin. We will monitor blood glucose closely. We will also check hemoglobin A1c. (5) DVT prophylaxis Current Visit: Yes Status: Acute Plan to address problem: She is placed on subcutaneous heparin. (6) Full code status Current Visit: Yes Status: Acute Subjective Date of service: 03/07/19 Principal diagnosis: Ac hypercapnic resp failure; Laryngeal CA Acute encephalopathy (toxic/met) Interval history: Patient is a 58-year-old white female with known history of laryngeal cancer status post radiation and chemotherapy treatment. She is brought to the emergency room today with shortness of breath and increased secretion and congestion on her throat. According to who is by the bedside patient has been having mild chills over the last few days. There has been no fever. No chest pain and no nausea or vomiting. Upon arrival in the emergency room she was in respiratory distress and also having stridor, she was subsequently intubated. Her work-up in the emergency room reveals leukocytosis of 19,000 and a chest x- ray reveals COPD changes and possible infiltrate in the right base. Chemistry also reveals mild dehydration and hyperglycemia. Opens eyes and responsive.On Vent. Objective - Exam Narrative Exam: On Vent - Constitutional Vitals: Vital Signs - 12hr 03/06/19 03/06/19 03/07/19 23:29 23:31 00:00 Temperature 98.8 F Pulse Rate 103 H 100 H 86 Pulse Rate [ 87 From Monitor] Respiratory 19 18 18 Rate Blood Pressure 125/75 125/75 125/75 O2 Sat by Pulse 99 98 100 Oximetry 03/07/19 03/07/19 03/07/19 00:30 00:38 01:00 Temperature Pulse Rate 92 H 95 H 105 H Pulse Rate [ From Monitor] Respiratory 18 18 Rate Blood Pressure 125/68 125/68 120/65 O2 Sat by Pulse 100 100 98 Oximetry 03/07/19 03/07/19 03/07/19 01:30 02:00 02:30 Temperature Pulse Rate 82 89 86 Pulse Rate [ From Monitor] Respiratory 18 18 15 Rate Blood Pressure 120/65 130/68 130/68 O2 Sat by Pulse 100 99 Oximetry 03/07/19 03/07/19 03/07/19 03:00 03:30 04:00 Temperature 98.4 F Pulse Rate 89 93 H 94 H Pulse Rate [ 84 From Monitor] Respiratory 33 H 16 20 Rate Blood Pressure 121/72 121/72 122/66 O2 Sat by Pulse 99 95 Oximetry 03/07/19 03/07/19 03/07/19 04:25 04:30 05:00 Temperature Pulse Rate 85 92 H 87 Pulse Rate [ From Monitor] Respiratory 19 17 Rate Blood Pressure 122/66 122/66 122/66 O2 Sat by Pulse 99 99 97 Oximetry 03/07/19 03/07/19 03/07/19 06:00 06:30 07:00 Temperature Pulse Rate 118 H 104 H 141 H Pulse Rate [ From Monitor] Respiratory 22 18 43 H Rate Blood Pressure 130/93 130/93 130/93 O2 Sat by Pulse 96 99 94 Oximetry 03/07/19 03/07/19 03/07/19 07:30 07:44 08:00 Temperature 98.7 F Pulse Rate 122 H 108 H 102 H Pulse Rate [ 110 H From Monitor] Respiratory 16 18 Rate Blood Pressure 131/83 131/83 125/69 O2 Sat by Pulse 100 100 100 Oximetry 03/07/19 03/07/19 08:30 09:30 Temperature Pulse Rate 115 H 126 H Pulse Rate [ From Monitor] Respiratory 18 Rate Blood Pressure 125/69 O2 Sat by Pulse 100 Oximetry General appearance: Present: mild distress, well-nourished - EENT Eyes: PERRL, EOM intact ENT: hearing intact, clear oral mucosa Ears: bilateral: normal - Neck Neck: supple, normal ROM - Respiratory Respiratory effort: normal Respiratory: bilateral: CTA - Breasts Breasts: normal - Cardiovascular Heart rate: 78 Rhythm: regular Heart Sounds: Present: S1 & S2. Absent: gallop, rub Extremities: no ischemia, pulses intact, No edema, normal color, Full ROM - Gastrointestinal General gastrointestinal: Present: soft, non-tender, non-distended, normal bowel sounds - Genitourinary Female genitourinary: normal - Integumentary Integumentary: clear, warm, dry - Musculoskeletal Musculoskeletal: 1, strength equal bilaterally - Neurologic Neurologic: moves all extremities - Psychiatric Psychiatric: memory intact, appropriate mood/affect, intact judgment & insight - Allied health notes Allied health notes reviewed: nursing, case management - Labs CBC & Chem 7: 03/07/19 05:54 03/07/19 05:54 Labs: Abnormal lab results 03/06/19 03/06/19 03/07/19 Range/Units 08:34 23:15 04:43 RDW (13.2-15.2) % Lymph % (Auto) (13.4-35.0) % [place] % (Auto) (0.0-7.3) % Lymph # (1.2-5.4) K/mm3 [place] # (0.0-0.8) K/mm3 Seg Neutrophils % (40.0-70.0) % PT (12.2-14.9) Sec. INR (0.87-1.13) POC ABG pH 7.487 H (7.35-7.45) POC ABG pO2 131 H (80-105) Potassium (3.6-5.0) mmol/L BUN (7-17) mg/dL Glucose (65-100) mg/dL POC Glucose 122 H 110 H (70-105) 03/07/19 03/07/19 03/07/19 Range/Units 05:44 05:54 05:54 RDW 15.8 H (13.2-15.2) % Lymph % (Auto) 11.3 L (13.4-35.0) % [place] % (Auto) 13.6 H (0.0-7.3) % Lymph # 1.0 L (1.2-5.4) K/mm3 [place] # 1.2 H (0.0-0.8) K/mm3 Seg Neutrophils % 73.1 H (40.0-70.0) % PT 15.2 H (12.2-14.9) Sec. INR 1.21 H (0.87-1.13) POC ABG pH (7.35-7.45) POC ABG pO2 (80-105) Potassium (3.6-5.0) mmol/L BUN (7-17) mg/dL Glucose (65-100) mg/dL POC Glucose 130 H (70-105) 03/07/19 Range/Units 05:54 RDW (13.2-15.2) % Lymph % (Auto) (13.4-35.0) % [place] % (Auto) (0.0-7.3) % Lymph # (1.2-5.4) K/mm3 [place] # (0.0-0.8) K/mm3 Seg Neutrophils % (40.0-70.0) % PT (12.2-14.9) Sec. INR (0.87-1.13) POC ABG pH (7.35-7.45) POC ABG pO2 (80-105) Potassium 3.5 L (3.6-5.0) mmol/L BUN 23 H (7-17) mg/dL Glucose 123 H (65-100) mg/dL POC Glucose (70-105)
[2019-03-07] MEDS ORDERED: POTASSIUM CHLORIDE 20 MEQ PACKET FEEDTUBE ONE (13:00)
[2019-03-07] MEDS: diphenhydrAMINE 25 MG/10 ML ORAL LIQUID FEEDTUBE PRN (21:38)
[2019-03-08] MEDS: ACETAMINOPHEN 325 MG/10.15 ML ORAL LIQD UNIT DOSE FEEDTUBE PRN ×2 (01:04→09:00)
--- NOTE | 2019-03-08 02:43 | XRay Report ---
CHEST 1 VIEW INDICATION: follow up respiratory failure. COMPARISON: Previous day. FINDINGS: Support devices: Unchanged. Heart: Within normal limits. Lungs/Pleura: Resolution of right basilar infiltrate. Additional findings: None. IMPRESSION: Resolution of right basilar infiltrate. Signer Name: Chad Toro MD Signed: 03/08/2019 2:38 AM Workstation Name: [id number]
[2019-03-08] MEDS: HEPARIN 5,000 UNIT/1 ML VIAL SUB-Q SCH ×3 (06:23→22:18)
[2019-03-08] MEDS: INSULIN LISPRO 100 UNIT/ML SUB-Q SCH ×4 (06:24→19:41)
--- NOTE | 2019-03-08 08:08 | Progress Note ---
Assessment and Plan (1) Respiratory distress Current Visit: Yes Status: Acute Plan to address problem: Etiology is unclear however patient has known history of laryngeal cancer and she has been quite congested lately. She is currently intubated secondary to the respiratory distress. Will monitor ABG . Pulmonology/Steam Crane Operator consult appreciated. She will be monitored in the intensive care unit. (2) Laryngeal cancer Current Visit: Yes Status: Acute Plan to address problem: She is status post radiation and chemotherapy. Waiting for Laryngectomy. Talked with [facility]. Patient was following with [facility] till May 2018 and changed her care to [facility].Details at [facility] not available. Was not accepted for transfer (3) Dehydration Current Visit: Yes Status: Acute Plan to address problem: She is placed on IV fluid normal saline. Will monitor BUN and creatinine. (4) Hyperglycemia Current Visit: Yes Status: Acute Plan to address problem: Patient does not have any known history of diabetes mellitus however she was found to be hyperglycemic. Sliding scale insulin. We will monitor blood glucose closely. We will also check hemoglobin A1c. (5) DVT prophylaxis Current Visit: Yes Status: Acute Plan to address problem: She is placed on subcutaneous heparin. (6) Full code status Current Visit: Yes Status: Acute Subjective Date of service: 03/08/19 Principal diagnosis: Ac hypercapnic resp failure; Laryngeal CA Acute encephalopathy (toxic/met) Interval history: Patient is a 58-year-old white female with known history of laryngeal cancer status post radiation and chemotherapy treatment. She is brought to the emergency room today with shortness of breath and increased secretion and congestion on her throat. According to who is by the bedside patient has been having mild chills over the last few days. There has been no fever. No chest pain and no nausea or vomiting. Upon arrival in the emergency room she was in respiratory distress and also having stridor, she was subsequently intubated. Her work-up in the emergency room reveals leukocytosis of 19,000 and a chest x- ray reveals COPD changes and possible infiltrate in the right base. Chemistry also reveals mild dehydration and hyperglycemia. Opens eyes and responsive.On Vent. Improving. Objective - Exam Narrative Exam: On Vent - Constitutional Vitals: Vital Signs - 12hr 03/07/19 03/07/19 03/07/19 20:30 21:00 21:30 Temperature Pulse Rate 105 H 102 H 96 H Pulse Rate [ 93 H From Monitor] Respiratory 17 18 18 Rate Blood Pressure 123/83 123/83 129/79 O2 Sat by Pulse 97 97 98 Oximetry 03/07/19 03/07/19 03/07/19 22:00 22:30 23:00 Temperature Pulse Rate 95 H 85 101 H Pulse Rate [ From Monitor] Respiratory 18 17 20 Rate Blood Pressure 141/78 141/78 141/78 O2 Sat by Pulse 96 100 99 Oximetry 03/07/19 03/07/19 03/07/19 23:30 23:32 23:33 Temperature Pulse Rate 96 H 106 H 101 H Pulse Rate [ 104 H From Monitor] Respiratory 17 17 Rate Blood Pressure 148/73 143/73 O2 Sat by Pulse 97 98 97 Oximetry 03/07/19 03/08/19 03/08/19 23:54 00:00 00:30 Temperature 98.3 F Pulse Rate 90 99 H 83 Pulse Rate [ From Monitor] Respiratory 17 17 16 Rate Blood Pressure 148/73 145/83 145/83 O2 Sat by Pulse 98 99 Oximetry 03/08/19 03/08/19 03/08/19 01:00 01:04 01:05 Temperature Pulse Rate 87 101 H Pulse Rate [ 104 H From Monitor] Respiratory 17 16 17 Rate Blood Pressure 142/79 O2 Sat by Pulse 98 97 Oximetry 03/08/19 03/08/19 03/08/19 01:30 02:00 02:04 Temperature Pulse Rate 106 H 113 H Pulse Rate [ From Monitor] Respiratory 20 20 20 Rate Blood Pressure 142/79 142/79 O2 Sat by Pulse 99 99 Oximetry 03/08/19 03/08/19 03/08/19 02:30 03:00 03:20 Temperature Pulse Rate 125 H 104 H 75 Pulse Rate [ 104 H From Monitor] Respiratory 32 H 17 17 Rate Blood Pressure 137/67 129/100 O2 Sat by Pulse 98 97 97 Oximetry 03/08/19 03/08/19 03/08/19 03:30 03:54 04:00 Temperature 98.3 F Pulse Rate 75 77 Pulse Rate [ From Monitor] Respiratory 16 16 Rate Blood Pressure 129/100 129/100 O2 Sat by Pulse 99 100 Oximetry 03/08/19 03/08/19 03/08/19 04:30 05:00 05:31 Temperature Pulse Rate 105 H 87 105 H Pulse Rate [ From Monitor] Respiratory 18 16 20 Rate Blood Pressure 148/79 144/78 144/78 O2 Sat by Pulse 99 98 99 Oximetry 03/08/19 03/08/19 03/08/19 06:00 06:31 07:36 Temperature Pulse Rate 96 H 92 H 100 H Pulse Rate [ From Monitor] Respiratory 21 15 Rate Blood Pressure 141/74 141/74 140/86 O2 Sat by Pulse 99 98 98 Oximetry General appearance: Present: no acute distress, well-nourished - EENT Eyes: PERRL, EOM intact ENT: hearing intact, clear oral mucosa Ears: bilateral: normal - Neck Neck: supple, normal ROM - Respiratory Respiratory effort: normal Respiratory: bilateral: CTA - Breasts Breasts: normal - Cardiovascular Heart rate: 78 Rhythm: regular Heart Sounds: Present: S1 & S2. Absent: gallop, rub Extremities: no ischemia, pulses intact, No edema, normal color, Full ROM - Gastrointestinal General gastrointestinal: Present: soft, non-tender, non-distended, normal bowel sounds - Genitourinary Female genitourinary: normal - Integumentary Integumentary: clear, warm, dry - Musculoskeletal Musculoskeletal: 1, strength equal bilaterally - Neurologic Neurologic: moves all extremities - Psychiatric Psychiatric: memory intact, appropriate mood/affect, intact judgment & insight - Allied health notes Allied health notes reviewed: nursing, case management - Labs CBC & Chem 7: 03/07/19 05:54 03/07/19 05:54 Labs: Abnormal lab results 03/07/19 03/07/19 03/07/19 Range/Units 12:57 18:27 18:41 POC ABG pH 7.461 H (7.35-7.45) POC ABG pO2 109 H (80-105) POC Glucose 108 H 108 H (70-105) 03/08/19 03/08/19 Range/Units 00:03 05:33 POC ABG pH (7.35-7.45) POC ABG pO2 (80-105) POC Glucose 117 H 107 H (70-105)
[2019-03-08] MEDS: FAMOTIDINE 20 MG TAB PO SCH ×2 (09:03→21:50)
[2019-03-08 09:06] LABS: Basophils % (Auto) 0.6 % (0.0-1.8); Eosinophils # (Auto) 0.1 K/mm3 (0.0-0.4); Eosinophils % (Auto) 1.6 % (0.0-4.3); Hematocrit 36.2 % (30.3-42.9); Hemoglobin 12.1 gm/dl (10.1-14.3); Lymphocytes # (Auto) 0.6 K/mm3 (1.2-5.4); Mean Corpuscular HGB Conc 33 % (30-34); Mean Corpuscular Volume 89 fl (79-97); Monocytes # (Auto) 0.8 K/mm3 (0.0-0.8); Monocytes % (Auto) 10.4 % (0.0-7.3); Platelet Count 331 K/mm3 (140-440); Red Blood Count 4.08 M/mm3 (3.65-5.03); Red Cell Distribution Width 15.1 % (13.2-15.2)
--- NOTE | 2019-03-08 09:11 | Event Note ---
Date: 03/08/19
[2019-03-08 09:32] LABS: Alanine Aminotransferase 14 units/L (7-56); Albumin 2.9 g/dL (3.9-5); BUN/Creatinine Ratio 25; Blood Urea Nitrogen 15 mg/dL (7-17); Calcium 9.1 mg/dL (8.4-10.2); Hemolysis Index 34
--- NOTE | 2019-03-08 09:51 | Progress Note ---
Assessment and Plan Acute hypercapnic respiratory failure on MVS Laryngeal carcinoma s/p chemo-radiation Acute toxic-metabolic encephalopathy Oropharyngeal dysphagia s/p PEG (Discussed risk of complete airway occlusion with extubation and need for evaluation by ENT for laryngectomy vs tracheostomy with patient and ) - begin Fentanyl gtt - begin propofol gtt - titrate sedation for RASS 0 to -1 - re-contact [facility] transfer line (apparently needs salvage laryngectomy and not done here) - keep intubated fo now - continue daily SAT's and SBT assessment as tolerated in am - VAP bundle addressed (Aspiration precautions, HOB > 40 degrees) - continue Lung protective strategies - continue to wean FIO2 for O2 sats >90% - continue bronchodilators with pulmonary hygiene per RT - daily CXR's & ABG's acutely - continue enteral nutrition and advance to goal rate as tolerated - continue agitation management / Pain management per CPOT - follow clinically off AB's - continue VTE prophylaxis - continue stress ulcer prophylaxis - continue accuchecks with glycemic control for SSI (While critically ill target blood glucose of 140-180 mg/dL; avoid hypoglycemia) - Continue mobility protocol for pressure ulcer prevention - Continue to monitor hemodynamics closely - Monitor electrolyte profile closely and replete as indicated - continue chronic home medications per attending and as clinically indicated .... care plan discussed at length with her at bedside - continue other care per attending / other consultants CONDITION: CRITICAL PROGNOSIS: GUARDED-POOR CODE STATUS: FULL CODE The high probability of a clinically significant, sudden or life-threatening deterioration of the [cardiac, respiratory & neurologic] system(s) required my full and direct attention, intervention and personal management. The aggregate critical care time was [40] minutes without overlap. Time includes spent on; [x] Data Review and interpretation [x] Patient assessment and monitoring of vital signs [x] Documentation [x] Medication orders and management Subjective Date of service: 03/08/19 Principal diagnosis: Ac hypercapnic resp failure; Laryngeal CA Acute encephalopathy (toxic/met) Interval history: Patient is seen today for: Acute hypercapnic respiratory failure; Laryngeal carcinoma s/p chemo-radiation; Acute toxic-metabolic encephalopathy; Oropharyngeal dysphagia; s/p PEG Seen and examined at bedside; 24hour events reviewed; nursing and respiratory care staff consulted; no adverse overnight events reported to me; resting in bed now; self extubated earlier and rapidly decompensated; re-intubated by anesthesia with Surgeon present in case of need for emergent cric; Objective Vital Signs - 12hr 03/07/19 03/07/19 03/07/19 22:00 22:30 23:00 Temperature Pulse Rate 95 H 85 101 H Pulse Rate [ From Monitor] Respiratory 18 17 20 Rate Blood Pressure 141/78 141/78 141/78 O2 Sat by Pulse 96 100 99 Oximetry 03/07/19 03/07/19 03/07/19 23:30 23:32 23:33 Temperature Pulse Rate 96 H 106 H 101 H Pulse Rate [ 104 H From Monitor] Respiratory 17 17 Rate Blood Pressure 148/73 143/73 O2 Sat by Pulse 97 98 97 Oximetry 03/07/19 03/08/19 03/08/19 23:54 00:00 00:30 Temperature 98.3 F Pulse Rate 90 99 H 83 Pulse Rate [ From Monitor] Respiratory 17 17 16 Rate Blood Pressure 148/73 145/83 145/83 O2 Sat by Pulse 98 99 Oximetry 03/08/19 03/08/19 03/08/19 01:00 01:04 01:05 Temperature Pulse Rate 87 101 H Pulse Rate [ 104 H From Monitor] Respiratory 17 16 17 Rate Blood Pressure 142/79 O2 Sat by Pulse 98 97 Oximetry 03/08/19 03/08/19 03/08/19 01:30 02:00 02:04 Temperature Pulse Rate 106 H 113 H Pulse Rate [ From Monitor] Respiratory 20 20 20 Rate Blood Pressure 142/79 142/79 O2 Sat by Pulse 99 99 Oximetry 03/08/19 03/08/19 03/08/19 02:30 03:00 03:20 Temperature Pulse Rate 125 H 104 H 75 Pulse Rate [ 104 H From Monitor] Respiratory 32 H 17 17 Rate Blood Pressure 137/67 129/100 O2 Sat by Pulse 98 97 97 Oximetry 03/08/19 03/08/19 03/08/19 03:30 03:54 04:00 Temperature 98.3 F Pulse Rate 75 77 Pulse Rate [ From Monitor] Respiratory 16 16 Rate Blood Pressure 129/100 129/100 O2 Sat by Pulse 99 100 Oximetry 03/08/19 03/08/19 03/08/19 04:30 05:00 05:31 Temperature Pulse Rate 105 H 87 105 H Pulse Rate [ From Monitor] Respiratory 18 16 20 Rate Blood Pressure 148/79 144/78 144/78 O2 Sat by Pulse 99 98 99 Oximetry 03/08/19 03/08/19 03/08/19 06:00 06:31 07:00 Temperature Pulse Rate 96 H 92 H 98 H Pulse Rate [ From Monitor] Respiratory 21 15 18 Rate Blood Pressure 141/74 141/74 139/80 O2 Sat by Pulse 99 98 97 Oximetry 03/08/19 03/08/19 03/08/19 07:31 07:36 08:00 Temperature 98.4 F Pulse Rate 102 H 100 H 102 H Pulse Rate [ From Monitor] Respiratory 18 22 Rate Blood Pressure 140/86 140/86 126/84 O2 Sat by Pulse 99 98 97 Oximetry Constitutional: alert, appears uncomfortable, other (middle aged AAF, normocephalic and atraumatic with mildly increased resp effort at rest) Eyes: non-icteric ENT: oropharynx moist, other (ETT 23-24 cm LISA) Neck: supple, no lymphadenopathy, no JVD Effort: mildly labored Ascultation: Bilateral: clear, diminished breath sounds Percussion: Bilateral: not dull Cardiovascular: regular rate and rhythm Gastrointestinal: normoactive bowel sounds, soft, non-tender, non-distended Integumentary: normal Extremities: no cyanosis, no edema, pink and warm, pulses normal, no ischemia or petechiae Neurologic: normal mental status, non-focal exam, pupils equal and round, CN II- XII normal Psychiatric: anxious CBC and BMP: 03/08/19 08:45 03/08/19 08:45 ABG, PT/INR, D-dimer: ABG POC ABG pH 7.483 (7.35-7.45) H 03/08/19 08:28 POC ABG pCO2 36.9 (35-45) 03/08/19 08:28 POC ABG pO2 107 (80-105) H 03/08/19 08:28 POC ABG HCO3 27.7 (22-26 mml/L) 03/08/19 08:28 POC ABG Total CO2 29 (23-27mmol/L) 03/08/19 08:28 POC ABG O2 Sat 99 03/08/19 08:28 PT/INR, D-dimer PT 15.2 Sec. (12.2-14.9) H 03/07/19 05:54 INR 1.21 (0.87-1.13) H 03/07/19 05:54 Abnormal lab findings: Abnormal Labs 03/06/19 03/06/19 03/06/19 03:37 05:05 05:18 WBC RDW Plt Count Lymph % (Auto) [place] % (Auto) Lymph # [place] # Seg Neutrophils % Seg Neutrophils # PT INR 1.17 H POC ABG pH POC ABG pCO2 48.9 H POC ABG pO2 393 H Sodium Potassium Chloride BUN Creatinine Glucose POC Glucose 233 H Lactic Acid Albumin Urine WBC (Auto) 03/06/19 03/06/19 03/06/19 06:34 08:34 23:15 WBC RDW Plt Count Lymph % (Auto) [place] % (Auto) Lymph # [place] # Seg Neutrophils % Seg Neutrophils # PT INR POC ABG pH POC ABG pCO2 POC ABG pO2 Sodium Potassium Chloride BUN Creatinine Glucose POC Glucose 122 H 110 H Lactic Acid 2.10 H* Albumin Urine WBC (Auto) 03/06/19 03/06/19 03/06/19 Unknown Unknown Unknown WBC 19.7 H RDW 15.5 H Plt Count 458 H Lymph % (Auto) [place] % (Auto) 12.4 H Lymph # [place] # 2.4 H Seg Neutrophils % Seg Neutrophils # 13.1 H PT INR 1.16 H POC ABG pH POC ABG pCO2 POC ABG pO2 Sodium 135 L Potassium Chloride 91.7 L BUN 44 H Creatinine Glucose 273 H POC Glucose Lactic Acid Albumin 3.6 L Urine WBC (Auto) 03/06/19 03/07/19 03/07/19 Unknown 04:43 05:44 WBC RDW Plt Count Lymph % (Auto) [place] % (Auto) Lymph # [place] # Seg Neutrophils % Seg Neutrophils # PT INR POC ABG pH 7.487 H POC ABG pCO2 POC ABG pO2 131 H Sodium Potassium Chloride BUN Creatinine Glucose POC Glucose 130 H Lactic Acid Albumin Urine WBC (Auto) 9.0 H 03/07/19 03/07/19 03/07/19 05:54 05:54 05:54 WBC RDW 15.8 H Plt Count Lymph % (Auto) 11.3 L [place] % (Auto) 13.6 H Lymph # 1.0 L [place] # 1.2 H Seg Neutrophils % 73.1 H Seg Neutrophils # PT 15.2 H INR 1.21 H POC ABG pH POC ABG pCO2 POC ABG pO2 Sodium Potassium 3.5 L Chloride BUN 23 H Creatinine Glucose 123 H POC Glucose Lactic Acid Albumin Urine WBC (Auto) 03/07/19 03/07/19 03/07/19 12:57 18:27 18:41 WBC RDW Plt Count Lymph % (Auto) [place] % (Auto) Lymph # [place] # Seg Neutrophils % Seg Neutrophils # PT INR POC ABG pH 7.461 H POC ABG pCO2 POC ABG pO2 109 H Sodium Potassium Chloride BUN Creatinine Glucose POC Glucose 108 H 108 H Lactic Acid Albumin Urine WBC (Auto) 03/08/19 03/08/19 03/08/19 00:03 05:33 08:28 WBC RDW Plt Count Lymph % (Auto) [place] % (Auto) Lymph # [place] # Seg Neutrophils % Seg Neutrophils # PT INR POC ABG pH 7.483 H POC ABG pCO2 POC ABG pO2 107 H Sodium Potassium Chloride BUN Creatinine Glucose POC Glucose 117 H 107 H Lactic Acid Albumin Urine WBC (Auto) 03/08/19 03/08/19 08:45 08:45 WBC RDW Plt Count Lymph % (Auto) 8.0 L [place] % (Auto) 10.4 H Lymph # 0.6 L [place] # Seg Neutrophils % 79.4 H Seg Neutrophils # PT INR POC ABG pH POC ABG pCO2 POC ABG pO2 Sodium Potassium 3.3 L Chloride BUN Creatinine 0.6 L Glucose 120 H POC Glucose Lactic Acid Albumin 2.9 L Urine WBC (Auto) Allied health notes reviewed: nursing
[2019-03-08] MEDS ORDERED: POTASSIUM CHLORIDE 20 MEQ PACKET FEEDTUBE ONE ×2 (10:00→13:00)
[2019-03-08] MEDS ORDERED: LIDOCAINE PF 100 MG/5 ML (CARDIAC SYRINGE) IV ONE (11:00)
[2019-03-08] MEDS ORDERED: ETOMIDATE 20 MG/10 ML INJ IV ONE (11:00)
[2019-03-08] MEDS ORDERED: MIDAZOLAM 5 MG/5 ML INJ MDV IV ONE (11:00)
[2019-03-08] MEDS ORDERED: EPINEPHrine RACEMIC 2.25% 0.5ML NEBU IH ONE ×2 (11:05→11:45)
[2019-03-08] MEDS ORDERED: NORepinephrine/NS 4 MG-250 ML 4 MG/250 ML BAG IV ONE (11:28)
[2019-03-08] MEDS ORDERED: PROPOFOL 200 MG/20 ML VIAL IV ONE (11:38)
[2019-03-08] MEDS ORDERED: PROPOFOL 1,000 MG/100 ML BOTTLE IV ONE (11:39)
--- NOTE | 2019-03-08 11:43 | Event Note ---
Date: 03/08/19 (Intubation) Called stat to 262 Pt known to me self-extubated. Hx laryngeal cancer 1133 Meds: Etomidate 20 mg and Lidocaine [address] Agrawal at bedside to assist with needle cric/trach Glidescope X 1 attempt 7.0 OETT + BBS/CO2 VSS
[2019-03-08] MEDS: PROPOFOL 1,000 MG/100 ML BOTTLE IV SCH ×2 (11:56→22:14)
[2019-03-08] MEDS ORDERED: NORepinephrine/NS 4 MG-250 ML IV SCH (12:00)
[2019-03-08] MEDS: diphenhydrAMINE 25 MG/10 ML ORAL LIQUID FEEDTUBE PRN (13:42)
[2019-03-08] MEDS ORDERED: fentaNYL 100 MCG/2 ML INJ IV PRN (14:28)
[2019-03-08] MEDS: fentaNYL DRIP Premix 2,000 MCG/100 ML BAG IV SCH (14:36)
[2019-03-08] MEDS ORDERED: SODIUM CHLORIDE 0.9% 1000 ML IV SOLN IV ONE (21:42)
[2019-03-08] MEDS ORDERED: SODIUM CHLORIDE 0.9% 500 ML 500 ML IV ONE (22:09)
--- NOTE | 2019-03-09 04:04 | XRay Report ---
CHEST 1 VIEW INDICATION: follow up respiratory failure. COMPARISON: Previous day. FINDINGS: Support devices: Endotracheal tube and chest port unchanged. Heart: Within normal limits. Lungs/Pleura: Persistent increased interstitial markings and underlying COPD. Mild increased basilar atelectasis. Additional findings: None. IMPRESSION: Mild increased basilar atelectasis. Signer Name: Chad Toro MD Signed: 03/09/2019 4:00 AM Workstation Name: [id number]
[2019-03-09 05:02] LABS: ABG Base Excess 2.4 mmol/L (-2.0-3.0); ABG HCO3 27.8 mmol/L (20.0-26.0); ABG Oxygen Saturation 97.3 % (95.0-99.0); ABG PCO2 46.4 mm Hg; ABG PH 7.395 pH Units (7.350-7.450); ABG PO2 96.5 mm Hg (80.0-90.0)
[2019-03-09] MEDS: INSULIN LISPRO 100 UNIT/ML SUB-Q SCH ×4 (05:28→18:55)
[2019-03-09] MEDS: PROPOFOL 1,000 MG/100 ML BOTTLE IV SCH (05:42)
[2019-03-09] MEDS: HEPARIN 5,000 UNIT/1 ML VIAL SUB-Q SCH ×3 (05:43→22:38)
--- NOTE | 2019-03-09 07:53 | Event Note ---
Date: 03/08/19 [id number]
[2019-03-09] MEDS: FAMOTIDINE 20 MG TAB PO SCH ×2 (10:07→22:38)
--- NOTE | 2019-03-09 13:09 | Progress Note ---
Assessment and Plan Acute hypercapnic respiratory failure on MVS Laryngeal carcinoma s/p chemo-radiation Acute toxic-metabolic encephalopathy Oropharyngeal dysphagia s/p PEG (Discussed risk of complete airway occlusion with extubation and need for evaluation by ENT for laryngectomy vs tracheostomy with patient and ) - continue Fentanyl & propofol (titrate sedation for RASS 0 to -1) - re-contacted [facility] transfer line (apparently needs salvage laryngectomy and not done here) and waiting on a bed - keep intubated fo now (rapidly decompensated with self extubation) - continue daily SAT's and SBT assessment as tolerated in am - VAP bundle addressed - continue Lung protective strategies - continue to wean FIO2 for O2 sats >90% - continue bronchodilators with pulmonary hygiene per RT - daily CXR's & ABG's acutely - continue enteral nutrition and advance to goal rate as tolerated - continue agitation management / Pain management per CPOT - follow clinically off AB's - continue VTE prophylaxis - continue stress ulcer prophylaxis - continue accuchecks with glycemic control for SSI (While critically ill target blood glucose of 140-180 mg/dL; avoid hypoglycemia) - Continue mobility protocol for pressure ulcer prevention - Continue to monitor hemodynamics closely - Monitor electrolyte profile closely and replete as indicated - continue chronic home medications per attending and as clinically indicated .... care plan discussed at length with her at bedside - continue other care per attending / other consultants CONDITION: CRITICAL PROGNOSIS: GUARDED-POOR CODE STATUS: FULL CODE The high probability of a clinically significant, sudden or life-threatening deterioration of the [cardiac, respiratory & neurologic] system(s) required my full and direct attention, intervention and personal management. The aggregate critical care time was [32] minutes without overlap. Time includes spent on; [x] Data Review and interpretation [x] Patient assessment and monitoring of vital signs [x] Documentation [x] Medication orders and management Subjective Date of service: 03/09/19 Principal diagnosis: Ac hypercapnic resp failure; Laryngeal CA Acute encephalopathy (toxic/met) Interval history: Patient is seen today for: Acute hypercapnic respiratory failure; Laryngeal carcinoma s/p chemo-radiation; Acute toxic-metabolic encephalopathy; Oroph aryngeal dysphagia; s/p PEG Seen and examined at bedside; 24hour events reviewed; nursing and respiratory care staff consulted; no adverse overnight events reported to me; resting in bed now; denies acute chest pains or palpitations; to begin daytime SBT's today; still awaiting transfer to [facility] for ENT evaluation Objective Vital Signs - 12hr 03/09/19 03/09/19 03/09/19 01:30 02:00 02:30 Temperature Pulse Rate 96 H 81 79 Pulse Rate [ From Monitor] Pulse Rate [ Left Dorsalis Pedis] Pulse Rate [ Right Dorsalis Pedis] Respiratory 16 14 12 Rate Blood Pressure 109/64 101/52 95/52 O2 Sat by Pulse 100 94 Oximetry 03/09/19 03/09/19 03/09/19 03:00 03:30 04:00 Temperature 98.3 F Pulse Rate 80 83 97 H Pulse Rate [ 78 From Monitor] Pulse Rate [ 78 Left Dorsalis Pedis] Pulse Rate [ 78 Right Dorsalis Pedis] Respiratory 12 13 14 Rate Blood Pressure 99/56 106/54 119/63 O2 Sat by Pulse 98 95 100 Oximetry 03/09/19 03/09/19 03/09/19 04:20 04:30 04:58 Temperature Pulse Rate 81 77 78 Pulse Rate [ From Monitor] Pulse Rate [ Left Dorsalis Pedis] Pulse Rate [ Right Dorsalis Pedis] Respiratory 13 Rate Blood Pressure 98/49 96/46 O2 Sat by Pulse 100 97 Oximetry 03/09/19 03/09/19 03/09/19 05:00 05:30 06:00 Temperature Pulse Rate 75 80 79 Pulse Rate [ From Monitor] Pulse Rate [ Left Dorsalis Pedis] Pulse Rate [ Right Dorsalis Pedis] Respiratory 13 13 11 L Rate Blood Pressure 102/51 100/50 98/47 O2 Sat by Pulse 100 99 100 Oximetry 03/09/19 03/09/19 03/09/19 06:30 07:00 07:30 Temperature Pulse Rate 76 79 81 Pulse Rate [ From Monitor] Pulse Rate [ Left Dorsalis Pedis] Pulse Rate [ Right Dorsalis Pedis] Respiratory 10 L 14 10 L Rate Blood Pressure 102/52 102/53 95/50 O2 Sat by Pulse 100 Oximetry 03/09/19 03/09/19 03/09/19 08:00 08:05 08:30 Temperature 98.4 F Pulse Rate 77 91 H 81 Pulse Rate [ From Monitor] Pulse Rate [ Left Dorsalis Pedis] Pulse Rate [ 101 H Right Dorsalis Pedis] Respiratory 11 L 12 Rate Blood Pressure 98/51 98/51 101/52 O2 Sat by Pulse 100 100 Oximetry 03/09/19 03/09/19 03/09/19 09:00 09:18 09:30 Temperature Pulse Rate 88 99 H 85 Pulse Rate [ From Monitor] Pulse Rate [ Left Dorsalis Pedis] Pulse Rate [ Right Dorsalis Pedis] Respiratory 14 14 13 Rate Blood Pressure 101/56 108/54 107/53 O2 Sat by Pulse 99 100 Oximetry 03/09/19 03/09/19 03/09/19 10:00 10:30 11:00 Temperature Pulse Rate 86 86 78 Pulse Rate [ From Monitor] Pulse Rate [ Left Dorsalis Pedis] Pulse Rate [ Right Dorsalis Pedis] Respiratory 13 14 11 L Rate Blood Pressure 121/55 103/61 122/60 O2 Sat by Pulse 100 100 100 Oximetry 03/09/19 03/09/19 03/09/19 11:30 12:00 12:30 Temperature 98.0 F Pulse Rate 83 103 H 97 H Pulse Rate [ From Monitor] Pulse Rate [ Left Dorsalis Pedis] Pulse Rate [ 103 H Right Dorsalis Pedis] Respiratory 11 L 16 20 Rate Blood Pressure 124/49 115/64 110/55 O2 Sat by Pulse 100 100 99 Oximetry 03/09/19 12:48 Temperature Pulse Rate 99 H Pulse Rate [ From Monitor] Pulse Rate [ Left Dorsalis Pedis] Pulse Rate [ Right Dorsalis Pedis] Respiratory 20 Rate Blood Pressure 113/56 O2 Sat by Pulse 100 Oximetry Constitutional: alert, appears uncomfortable, other (middle aged AAF, normocephalic and atraumatic with mildly increased resp effort at rest) Eyes: non-icteric ENT: oropharynx moist, other (ETT 23-24 cm LISA) Neck: supple, no lymphadenopathy, no JVD Effort: mildly labored Ascultation: Bilateral: diminished breath sounds, rhonchi (scant) Percussion: Bilateral: not dull Cardiovascular: regular rate and rhythm Gastrointestinal: normoactive bowel sounds, soft, non-tender, non-distended Integumentary: normal Extremities: no cyanosis, no edema, pink and warm, pulses normal, no ischemia or petechiae Neurologic: normal mental status, non-focal exam, pupils equal and round, CN II- XII normal Psychiatric: anxious CBC and BMP: 03/08/19 08:45 03/08/19 08:45 ABG, PT/INR, D-dimer: ABG POC ABG pH 7.483 (7.35-7.45) H 03/08/19 08:28 ABG pH 7.395 pH Units (7.350-7.450) 03/09/19 04:34 POC ABG pCO2 36.9 (35-45) 03/08/19 08:28 ABG pCO2 46.4 mm Hg 03/09/19 04:34 POC ABG pO2 107 (80-105) H 03/08/19 08:28 ABG pO2 96.5 mm Hg (80.0-90.0) H 03/09/19 04:34 POC ABG HCO3 27.7 (22-26 mml/L) 03/08/19 08:28 POC ABG Total CO2 29 (23-27mmol/L) 03/08/19 08:28 POC ABG O2 Sat 99 03/08/19 08:28 ABG O2 Saturation 97.3 % (95.0-99.0) 03/09/19 04:34 PT/INR, D-dimer PT 15.2 Sec. (12.2-14.9) H 03/07/19 05:54 INR 1.21 (0.87-1.13) H 03/07/19 05:54 Abnormal lab findings: Abnormal Labs 03/06/19 03/06/19 03/06/19 03:37 05:05 05:18 WBC RDW Plt Count Lymph % (Auto) Davidson % (Auto) Lymph # Davidson # Seg Neutrophils % Seg Neutrophils # PT INR 1.17 H POC ABG pH POC ABG pCO2 48.9 H POC ABG pO2 393 H ABG pO2 ABG HCO3 ABG Hemoglobin Sodium Potassium Chloride BUN Creatinine Glucose POC Glucose 233 H Lactic Acid Albumin Urine WBC (Auto) 03/06/19 03/06/19 03/06/19 06:34 08:34 23:15 WBC RDW Plt Count Lymph % (Auto) Davidson % (Auto) Lymph # Davidson # Seg Neutrophils % Seg Neutrophils # PT INR POC ABG pH POC ABG pCO2 POC ABG pO2 ABG pO2 ABG HCO3 ABG Hemoglobin Sodium Potassium Chloride BUN Creatinine Glucose POC Glucose 122 H 110 H Lactic Acid 2.10 H* Albumin Urine WBC (Auto) 03/06/19 03/06/19 03/06/19 Unknown Unknown Unknown WBC 19.7 H RDW 15.5 H Plt Count 458 H Lymph % (Auto) Davidson % (Auto) 12.4 H Lymph # Davidson # 2.4 H Seg Neutrophils % Seg Neutrophils # 13.1 H PT INR 1.16 H POC ABG pH POC ABG pCO2 POC ABG pO2 ABG pO2 ABG HCO3 ABG Hemoglobin Sodium 135 L Potassium Chloride 91.7 L BUN 44 H Creatinine Glucose 273 H POC Glucose Lactic Acid Albumin 3.6 L Urine WBC (Auto) 03/06/19 03/07/19 03/07/19 Unknown 04:43 05:44 WBC RDW Plt Count Lymph % (Auto) Davidson % (Auto) Lymph # Davidson # Seg Neutrophils % Seg Neutrophils # PT INR POC ABG pH 7.487 H POC ABG pCO2 POC ABG pO2 131 H ABG pO2 ABG HCO3 ABG Hemoglobin Sodium Potassium Chloride BUN Creatinine Glucose POC Glucose 130 H Lactic Acid Albumin Urine WBC (Auto) 9.0 H 03/07/19 03/07/19 03/07/19 05:54 05:54 05:54 WBC RDW 15.8 H Plt Count Lymph % (Auto) 11.3 L Davidson % (Auto) 13.6 H Lymph # 1.0 L Davidson # 1.2 H Seg Neutrophils % 73.1 H Seg Neutrophils # PT 15.2 H INR 1.21 H POC ABG pH POC ABG pCO2 POC ABG pO2 ABG pO2 ABG HCO3 ABG Hemoglobin Sodium Potassium 3.5 L Chloride BUN 23 H Creatinine Glucose 123 H POC Glucose Lactic Acid Albumin Urine WBC (Auto) 03/07/19 03/07/19 03/07/19 12:57 18:27 18:41 WBC RDW Plt Count Lymph % (Auto) Davidson % (Auto) Lymph # Davidson # Seg Neutrophils % Seg Neutrophils # PT INR POC ABG pH 7.461 H POC ABG pCO2 POC ABG pO2 109 H ABG pO2 ABG HCO3 ABG Hemoglobin Sodium Potassium Chloride BUN Creatinine Glucose POC Glucose 108 H 108 H Lactic Acid Albumin Urine WBC (Auto) 03/08/19 03/08/19 03/08/19 00:03 05:33 08:28 WBC RDW Plt Count Lymph % (Auto) Davidson % (Auto) Lymph # Davidson # Seg Neutrophils % Seg Neutrophils # PT INR POC ABG pH 7.483 H POC ABG pCO2 POC ABG pO2 107 H ABG pO2 ABG HCO3 ABG Hemoglobin Sodium Potassium Chloride BUN Creatinine Glucose POC Glucose 117 H 107 H Lactic Acid Albumin Urine WBC (Auto) 03/08/19 03/08/19 03/08/19 08:45 08:45 12:15 WBC RDW Plt Count Lymph % (Auto) 8.0 L Davidson % (Auto) 10.4 H Lymph # 0.6 L Davidson # Seg Neutrophils % 79.4 H Seg Neutrophils # PT INR POC ABG pH POC ABG pCO2 POC ABG pO2 ABG pO2 ABG HCO3 ABG Hemoglobin Sodium Potassium 3.3 L Chloride BUN Creatinine 0.6 L Glucose 120 H POC Glucose 197 H Lactic Acid Albumin 2.9 L Urine WBC (Auto) 03/08/19 03/09/19 03/09/19 23:47 04:34 06:18 WBC RDW Plt Count Lymph % (Auto) Davidson % (Auto) Lymph # Davidson # Seg Neutrophils % Seg Neutrophils # PT INR POC ABG pH POC ABG pCO2 POC ABG pO2 ABG pO2 96.5 H ABG HCO3 27.8 H ABG Hemoglobin 10.7 L Sodium Potassium Chloride BUN Creatinine Glucose POC Glucose 120 H 119 H Lactic Acid Albumin Urine WBC (Auto) Chest x-ray: image reviewed (bibasilar platelike atelectasis) Allied health notes reviewed: nursing
[2019-03-09] MEDS: fentaNYL DRIP Premix 2,000 MCG/100 ML BAG IV SCH (21:00)
--- NOTE | 2019-03-09 21:27 | Hem/Onc Progress Note ---
Assessment and Plan 1. Laryngeal cancer/supraglottic cancer. The patient had undergone ENT evaluation recently, which showed persistent tumor. Referral to [facility] was [facility]. [facility]. Stridor, hence, intubated. 2. PEG tube. 3. Port present. 4. Hyperglycemia. 5. The patient is requesting extubation and discharged. I will follow the patient during inpatient stay. trach being evaluated - Patient Problems (1) Laryngeal cancer Current Visit: Yes Status: Acute Subjective Date of service: 03/09/19 Principal diagnosis: throat cancer Interval history: still on vent Objective - Exam Narrative Exam: Pain - none General appearance - awake Performance status dependent Eyes - no icterus ENT - on o2 - intubated LNs cervical not palpable Neck - no LN Respiratory Normal Breath sounds - CTA anteriorly CVS S1 S2 + Extremities no edema General GI Soft - PEG + Rectal deferred female - deferred Skin warm PORT + Musculoskeletal - moving limbs Neurologically awake - Constitutional Vitals: Last Vital Signs Temp 98.8 F 03/09/19 20:00 Pulse 90 03/09/19 20:45 Resp 17 03/09/19 20:45 BP 125/70 03/09/19 20:45 Pulse Ox 100 03/09/19 20:45 - Labs Lab Results: Laboratory Results - last 24 hr 03/08/19 03/08/19 03/09/19 17:31 23:47 04:34 ABG pH 7.395 ABG pCO2 46.4 ABG pO2 96.5 H ABG HCO3 27.8 H ABG O2 Saturation 97.3 ABG O2 Content 14.5 ABG Base Excess 2.4 ABG Hemoglobin 10.7 L ABG Carboxyhemoglobin 1.2 ABG Methemoglobin 0.0 Oxyhemoglobin 96.1 FiO2 40 POC Glucose 94 120 H 03/09/19 03/09/19 06:18 12:13 ABG pH ABG pCO2 ABG pO2 ABG HCO3 ABG O2 Saturation ABG O2 Content ABG Base Excess ABG Hemoglobin ABG Carboxyhemoglobin ABG Methemoglobin Oxyhemoglobin FiO2 POC Glucose 119 H 133 H Medications & Allergies - Medications Allergies/Adverse Reactions: Allergies No Known Allergies Allergy (Unverified 03/06/19 03:42) Home Medications: Home Medications Medication Instructions Recorded Confirmed Last Taken Type Gabapentin [Neurontin] 300 mg PO TID 1103/06/19 03/05/19 17:00 History 300 mg Naproxen Sodium [Aleve] 220 mg PO Q6H PRN 03/06/19 03/06/19 03/05/19 15:00 History 1 tab Oxycodone HCl [oxyCODONE] 10 mg PO Q6HR PRN 03/06/19 03/06/19 03/06/19 16:30 History 10 mg fentaNYL [Fentanyl] 25 mcg TRANSDERMA Q72H 03/06/19 03/06/19 03/04/19 08:00 History 25 mcg Active Medications: Generic Name Dose Route Start Last Admin Trade Name Freq PRN Reason Stop Dose Admin Acetaminophen 650 mg 03/08/19 00:51 03/08/19 09:00 Tylenol FEEDTUBE 650 mg Q6H PRN Administration Pain, Mild (1-3) Albuterol 2.5 mg 03/06/19 05:37 Proventil IH Q3HRT PRN Shortness Of Breath Lipase/Protease/Amylase 1 each 03/06/19 08:[address] 10,500 Unit FEEDTUBE PRN PRN For Clogged Feeding Tube Dextrose 0 ml 03/06/19 06:26 D50w (25gm) Syringe IV Q30MIN PRN Hypoglycemia Protocol Famotidine 20 mg 03/07/19 10:00 03/09/19 10:07 Pepcid PO 20 mg BID GEMMA Administration Fentanyl 50 mcg 03/08/19 14:28 03/09/19 15:02 Sublimaze IV 50 mcg Q10MIN PRN Administration ANALGESIA Heparin Sodium (Porcine) 5,000 unit 03/06/19 06:00 03/09/19 13:09 Heparin SUB-Q Not Given Q8HR GEMMA Hydrophilic Ointment 1 applic 03/06/19 04:18 Vaseline Lip Therapy TP Q2HR PRN Dry Lips Midazolam HCl 100 mg/ Sodium 100 mls @ 2 mls/hr 03/06/19 05:00 03/07/19 19:20 Chloride IV 0 mg/hr TITR GEMMA 0 mls/hr Titration Protocol 2 MG/HR Norepinephrine 4 mg in 250 mls @ 7.5 mls/hr 03/08/19 12:00 Levophed Drip 4 Mg/Ns 250 Ml IV TITR GEMMA Protocol 2 MCG/MIN Propofol 1,000 mg in 100 mls @ 1.842 mls/hr 03/08/19 12:00 03/09/19 09:13 Diprivan 10 Mg/Ml IV 0 mcg/kg/min TITR GEMMA 0 mls/hr Titration Protocol 5 MCG/KG/MIN Fentanyl Citrate 2,000 mcg in 100 mls @ 3.07 mls/hr 03/08/19 15:00 03/09/19 09:14 Fentanyl Drip Premix IV Infused TITR GEMMA Titration Protocol 1 MCG/KG/HR Insulin Human Lispro 0 unit 03/06/19 06:00 03/09/19 18:55 Humalog SUB-Q Not Given Q6HR [facility] Protocol Midazolam HCl 2 mg 03/06/19 04:18 03/07/19 07:08 Versed IV 2 mg Q10MIN PRN Administration Sedation Multi-Ingred Cream/Lotion/Oil/Oint 1 applic 03/06/19 04:18 Artificial Tears Ophth Oint OU Q4HR PRN Dry Eye(s) Ondansetron HCl 4 mg 03/06/19 05:37 Zofran IV Q8H PRN Nausea And Vomiting Simple Syrup 15 ml 03/06/19 08:25 Simple Syrup FEEDTUBE PRN PRN Hypoglycemia Simple Syrup 30 ml 03/06/19 08:25 Simple Syrup FEEDTUBE PRN PRN Hypoglycemia Sodium Bicarbonate 325 mg 03/06/19 08:25 Sodium Bicarbonate FEEDTUBE PRN PRN For Clogged Feeding Tube Sodium Chloride 10 ml 03/06/19 10:00 03/09/19 10:08 Sodium Chloride Flush Syringe 10 Ml IV 10 ml BID GEMMA Administration Sodium Chloride 10 ml 03/06/19 05:37 Sodium Chloride Flush Syringe 10 Ml IV PRN PRN LINE FLUSH
--- NOTE | 2019-03-09 23:56 | Progress Note ---
Assessment and Plan (1) Respiratory distress Current Visit: Yes Status: Acute Plan to address problem: Etiology is unclear however patient has known history of laryngeal cancer and she has been quite congested lately. She is currently intubated secondary to the respiratory distress. Will monitor ABG . Pulmonology/Head Sawyer consult appreciated. She will be monitored in the intensive care unit. Waiting for transfer to [place] (2) Laryngeal cancer Current Visit: Yes Status: Acute Plan to address problem: She is status post radiation and chemotherapy. Waiting for Laryngectomy. Talked with [facility]. Patient was following with [facility] till May 2018 and changed her care to [facility].Details at [facility] not available. Was not accepted for transfer (3) Dehydration Current Visit: Yes Status: Acute Plan to address problem: She is placed on IV fluid normal saline. Will monitor BUN and creatinine. (4) Hyperglycemia Current Visit: Yes Status: Acute Plan to address problem: Patient does not have any known history of diabetes mellitus however she was found to be hyperglycemic. Sliding scale insulin. We will monitor blood glucose closely. We will also check hemoglobin A1c. (5) DVT prophylaxis Current Visit: Yes Status: Acute Plan to address problem: She is placed on subcutaneous heparin. (6) Full code status Current Visit: Yes Status: Acute Subjective Date of service: 03/09/19 Principal diagnosis: Ac hypercapnic resp failure; Laryngeal CA Acute encephalopathy (toxic/met) Interval history: Patient is a 58-year-old white female with known history of laryngeal cancer sta tus post radiation and chemotherapy treatment. She is brought to the emergency room today with shortness of breath and increased secretion and congestion on her throat. According to who is by the bedside patient has been having mild chills over the last few days. There has been no fever. No chest pain and no nausea or vomiting. Upon arrival in the emergency room she was in respiratory distress and also having stridor, she was subsequently intubated. Her work-up in the emergency room reveals leukocytosis of 19,000 and a chest x- ray reveals COPD changes and possible infiltrate in the right base. Chemistry also reveals mild dehydration and hyperglycemia. Opens eyes and responsive.On Vent. Improving. Objective - Exam Narrative Exam: On Vent - Constitutional Vitals: Vital Signs - 12hr 03/09/19 03/09/19 03/09/19 12:00 12:30 12:48 Temperature 98.0 F Pulse Rate 103 H 97 H 99 H Pulse Rate [ From Monitor] Pulse Rate [ Left Dorsalis Pedis] Pulse Rate [ 103 H Right Dorsalis Pedis] Respiratory 16 20 20 Rate Blood Pressure 115/64 110/55 113/56 O2 Sat by Pulse 100 99 100 Oximetry 03/09/19 03/09/19 03/09/19 13:00 13:30 14:00 Temperature Pulse Rate 106 H 100 H 101 H Pulse Rate [ From Monitor] Pulse Rate [ Left Dorsalis Pedis] Pulse Rate [ Right Dorsalis Pedis] Respiratory 25 H 20 20 Rate Blood Pressure 113/56 102/46 125/63 O2 Sat by Pulse 99 99 100 Oximetry 03/09/19 03/09/19 03/09/19 14:02 14:30 15:00 Temperature Pulse Rate 102 H 89 82 Pulse Rate [ From Monitor] Pulse Rate [ Left Dorsalis Pedis] Pulse Rate [ Right Dorsalis Pedis] Respiratory 25 H 22 18 Rate Blood Pressure 127/64 124/61 127/63 O2 Sat by Pulse 100 100 100 Oximetry 03/09/19 03/09/19 03/09/19 15:30 16:00 16:30 Temperature Pulse Rate 88 76 92 H Pulse Rate [ From Monitor] Pulse Rate [ Left Dorsalis Pedis] Pulse Rate [ Right Dorsalis Pedis] Respiratory 14 13 14 Rate Blood Pressure 123/61 123/59 121/63 O2 Sat by Pulse 100 100 98 Oximetry 03/09/19 03/09/19 03/09/19 17:00 17:24 17:30 Temperature Pulse Rate 86 95 H 87 Pulse Rate [ From Monitor] Pulse Rate [ Left Dorsalis Pedis] Pulse Rate [ Right Dorsalis Pedis] Respiratory 13 18 14 Rate Blood Pressure 121/59 125/65 124/64 O2 Sat by Pulse 98 100 100 Oximetry 03/09/19 03/09/19 03/09/19 18:00 18:30 19:00 Temperature Pulse Rate 95 H 93 H 80 Pulse Rate [ From Monitor] Pulse Rate [ Left Dorsalis Pedis] Pulse Rate [ Right Dorsalis Pedis] Respiratory 13 15 14 Rate Blood Pressure 119/61 125/56 124/60 O2 Sat by Pulse 97 98 98 Oximetry 03/09/19 03/09/19 03/09/19 19:30 20:00 20:30 Temperature 98.8 F Pulse Rate 89 82 80 Pulse Rate [ 78 From Monitor] Pulse Rate [ 78 Left Dorsalis Pedis] Pulse Rate [ 78 Right Dorsalis Pedis] Respiratory 20 20 10 L Rate Blood Pressure 118/58 131/63 129/68 O2 Sat by Pulse 100 100 98 Oximetry 03/09/19 03/09/19 03/09/19 20:45 21:00 21:30 Temperature Pulse Rate 90 81 79 Pulse Rate [ From Monitor] Pulse Rate [ Left Dorsalis Pedis] Pulse Rate [ Right Dorsalis Pedis] Respiratory 17 13 12 Rate Blood Pressure 125/70 149/56 142/62 O2 Sat by Pulse 100 99 99 Oximetry 03/09/19 22:08 Temperature Pulse Rate 80 Pulse Rate [ From Monitor] Pulse Rate [ Left Dorsalis Pedis] Pulse Rate [ Right Dorsalis Pedis] Respiratory 12 Rate Blood Pressure O2 Sat by Pulse 99 Oximetry General appearance: Present: no acute distress, well-nourished - EENT Eyes: PERRL, EOM intact ENT: hearing intact, clear oral mucosa Ears: bilateral: normal - Neck Neck: supple, normal ROM - Respiratory Respiratory effort: normal Respiratory: bilateral: CTA - Breasts Breasts: normal - Cardiovascular Rhythm: regular Heart Sounds: Present: S1 & S2. Absent: gallop, rub Extremities: pulses intact, No edema, normal color, Full ROM - Gastrointestinal General gastrointestinal: Present: soft, non-tender, non-distended, normal bowel sounds - Genitourinary Female genitourinary: normal - Integumentary Integumentary: clear, warm, dry - Musculoskeletal Musculoskeletal: 1, strength equal bilaterally - Neurologic Neurologic: moves all extremities - Psychiatric Psychiatric: memory intact, appropriate mood/affect, intact judgment & insight - Labs CBC & Chem 7: 03/08/19 08:45 03/08/19 08:45 Labs: Abnormal lab results 03/09/19 03/09/19 03/09/19 Range/Units 04:34 06:18 12:13 ABG pO2 96.5 H (80.0-90.0) mm Hg ABG HCO3 27.8 H (20.0-26.0) mmol/L ABG Hemoglobin 10.7 L (12.0-16.0) gm/dl POC Glucose 119 H 133 H (70-105) 03/09/19 Range/Units 18:12 ABG pO2 (80.0-90.0) mm Hg ABG HCO3 (20.0-26.0) mmol/L ABG Hemoglobin (12.0-16.0) gm/dl POC Glucose 120 H (70-105)
[2019-03-10] MEDS: INSULIN LISPRO 100 UNIT/ML SUB-Q SCH ×4 (00:57→21:07)
--- NOTE | 2019-03-10 01:10 | Consultation ---
REFERRED BY: Dr. Beckwith. REASON FOR CONSULTATION: Supraglottic cancer. HISTORY OF PRESENT ILLNESS: I saw the patient, a 58-year-old female in the medical floor. The patient has a history of supraglottic cancer stage 3, originally diagnosed as T2 N1 in 04/2018. I saw her the first time in 06/2018. Originally, she had refused PEG tube or dental extraction. She was advised a cisplatin based chemotherapy with radiation. She changed radiation oncologist. She was suggested to get cisplatin 3 weeks of dosage; she refused same. She preferred the weekly cisplatin. She received the same with intermittent breakage because of side effects. Later on, she agreed to PEG tube placement. She has been having pain issues. Her last chemotherapy was in 10/2018. Her last radiation was in 01/2019. She came to the hospital because of breathing problems. Later on, she was intubated for the stridor. The patient is in ICU and is being followed by Pulmonary Team. [place] was asked for transfer. However, there is a plan for discharge and outpatient followup. The patient is also being planning to go [facility] center. REVIEW OF SYSTEMS: At this time, review of systems is not available. The patient is intubated. She wants to be extubated. PAST MEDICAL HISTORY: As above. PAST SURGICAL HISTORY: PEG tube placement, port placement. SOCIAL HISTORY: History of smoking, stopped after diagnosis of cancer. FAMILY HISTORY: Noncontributory. ALLERGIES: None. MEDICATIONS: Included Zofran p.r.n., Metozolv. PHYSICAL EXAMINATION: VITAL SIGNS: Temperature 97.9, pulse 78, respirations 12, BP 87/59. HEENT: No pallor, no icterus. NECK: No neck lymph nodes. HEART: S1, S2, though intubated. LUNGS: Clear to auscultation anteriorly. ABDOMEN: Soft. EXTREMITIES: No calf tenderness. Port present. PEG tube present. NEUROLOGIC: Alert, awake, oriented. LABORATORY DATA: White cell 7, hemoglobin 12, MCV 89, platelets 331. Potassium 3.3, creatinine 0.6, calcium 9.1. RADIOLOGY: Chest x-ray was done. ASSESSMENT AND PLAN: 1. Laryngeal cancer/supraglottic cancer. The patient had undergone ENT evaluation recently, which showed persistent tumor. Referral to [place] was done. There is a question of going to [facility]. Stridor, hence, intubated. 2. PEG tube. 3. Port present. 4. Hyperglycemia. 5. The patient is requesting extubation and discharged. I will follow the patient during inpatient stay. JOB# [id number] MELO/NTS
--- NOTE | 2019-03-10 02:32 | XRay Report ---
CHEST 1 VIEW INDICATION: follow up respiratory failure. COMPARISON: 03/09/2019. FINDINGS: Support devices: Unchanged. Heart: Within normal limits. Lungs/Pleura: Underlying COPD remains. Basilar atelectasis has nearly resolved. Additional findings: None. IMPRESSION: Near resolution of basilar atelectasis. Signer Name: Chad Toro MD Signed: 03/10/2019 2:28 AM Workstation Name: [id number]
[2019-03-10] MEDS: fentaNYL DRIP Premix 2,000 MCG/100 ML BAG IV SCH ×2 (04:54→20:36)
--- NOTE | 2019-03-10 07:50 | Hem/Onc Progress Note ---
Assessment and Plan 1. 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 The patient had undergone ENT evaluation recently, which showed persistent tumor. Referral to [facility] was done. There is a question of going to [facility]. Stridor, hence, intubated. 2. PEG tube. 3. Port present. 4. Hyperglycemia. 5. The patient was requesting extubation and discharged. I will follow the patient during inpatient stay. trach being evaluated transfer to [facility] being looked into - d/w dr Beckwith - Patient Problems (1) Laryngeal cancer Current Visit: Yes Status: Acute Subjective Date of service: 03/10/19 Principal diagnosis: laryngeal ca Interval history: still on vent transfer to [place] being looked into Objective - Exam Narrative Exam: Pain - none General appearance - awake Performance status dependent Eyes - no icterus ENT - on o2 - intubated LNs cervical not palpable Neck - no LN Respiratory Normal Breath sounds - CTA anteriorly CVS S1 S2 + Extremities no edema General GI Soft - PEG + Rectal deferred female - deferred Skin warm PORT + Musculoskeletal - moving limbs Neurologically awake - Constitutional Vitals: Last Vital Signs Temp 98.8 F 03/10/19 04:00 Pulse 77 03/10/19 05:30 Resp 17 03/10/19 05:30 BP 135/62 03/10/19 05:30 Pulse Ox 100 03/10/19 05:30 - Labs Lab Results: Laboratory Results - last 24 hr 03/09/19 03/09/19 03/09/19 12:13 18:12 23:49 POC ABG pH POC ABG pCO2 POC ABG pO2 POC ABG HCO3 POC ABG Total CO2 POC ABG O2 Sat POC ABG Base Excess FiO2 POC Glucose 133 H 120 H 106 H 03/10/19 03/10/19 04:22 05:49 POC ABG pH 7.491 H POC ABG pCO2 43.0 POC ABG pO2 149 H POC ABG HCO3 32.8 POC ABG Total CO2 34 POC ABG O2 Sat 99 POC ABG Base Excess 10 FiO2 40 POC Glucose 118 H Medications & Allergies - Medications Allergies/Adverse Reactions: Allergies No Known Allergies Allergy (Unverified 03/06/19 03:42) Home Medications: Home Medications Medication Instructions Recorded Confirmed Last Taken Type Gabapentin [Neurontin] 300 mg PO TID 03/06/19 03/06/19 03/05/19 17:00 History 300 mg Naproxen Sodium [Aleve] 220 mg PO Q6H PRN 03/06/19 03/06/19 03/05/19 15:00 History 1 tab Oxycodone HCl [oxyCODONE] 10 mg PO Q6HR PRN 03/06/19 03/06/19 03/06/19 16:30 History 10 mg fentaNYL [Fentanyl] 25 mcg TRANSDERMA Q72H 03/06/19 03/06/19 03/04/19 08:00 History 25 mcg Active Medications: Generic Name Dose Route Start Last Admin Trade Name Freq PRN Reason Stop Dose Admin Acetaminophen 650 mg 03/08/19 00:51 03/08/19 09:00 Tylenol FEEDTUBE 650 mg Q6H PRN Administration Pain, Mild (1-3) Albuterol 2.5 mg 03/06/19 05:37 Proventil IH Q3HRT PRN Shortness Of Breath Lipase/Protease/Amylase 1 each 03/06/19 08:[address] 10,500 Unit FEEDTUBE PRN PRN For Clogged Feeding Tube Dextrose 0 ml 03/06/19 06:26 D50w (25gm) Syringe IV Q30MIN PRN Hypoglycemia Protocol Famotidine 20 mg 03/07/19 10:00 03/09/19 22:38 Pepcid PO 20 mg BID GEMMA Administration Fentanyl 50 mcg 03/08/19 14:28 03/09/19 15:02 Sublimaze IV 50 mcg Q10MIN PRN Administration ANALGESIA Heparin Sodium (Porcine) 5,000 unit 03/06/19 06:00 03/09/19 22:38 Heparin SUB-Q Not Given Q8HR GEMMA Hydrophilic Ointment 1 applic 03/06/19 04:18 Vaseline Lip Therapy TP Q2HR PRN Dry Lips Midazolam HCl 100 mg/ Sodium 100 mls @ 2 mls/hr 03/06/19 05:00 03/07/19 19:20 Chloride IV 0 mg/hr TITR GEMMA 0 mls/hr Titration Protocol 2 MG/HR Norepinephrine 4 mg in 250 mls @ 7.5 mls/hr 03/08/19 12:00 Levophed Drip 4 Mg/Ns 250 Ml IV TITR GEMMA Protocol 2 MCG/MIN Propofol 1,000 mg in 100 mls @ 1.842 mls/hr 03/08/19 12:00 03/09/19 09:13 Diprivan 10 Mg/Ml IV 0 mcg/kg/min TITR GEMMA 0 mls/hr Titration Protocol 5 MCG/KG/MIN Fentanyl Citrate 2,000 mcg in 100 mls @ 3.07 mls/hr 03/08/19 15:00 03/10/19 04:54 Fentanyl Drip Premix IV 2 mcg/kg/hr TITR GEMMA 6.14 mls/hr Administration Protocol 1 MCG/KG/HR Insulin Human Lispro 0 unit 03/06/19 06:00 03/10/19 05:06 Humalog SUB-Q Not Given Q6HR [facility] Protocol Midazolam HCl 2 mg 03/06/19 04:18 03/07/19 07:08 Versed IV 2 mg Q10MIN PRN Administration Sedation Multi-Ingred Cream/Lotion/Oil/Oint 1 applic 03/06/19 04:18 Artificial Tears Ophth Oint OU Q4HR PRN Dry Eye(s) Ondansetron HCl 4 mg 03/06/19 05:37 Zofran IV Q8H PRN Nausea And Vomiting Simple Syrup 15 ml 03/06/19 08:25 Simple Syrup FEEDTUBE PRN PRN Hypoglycemia Simple Syrup 30 ml 03/06/19 08:25 Simple Syrup FEEDTUBE PRN PRN Hypoglycemia Sodium Bicarbonate 325 mg 03/06/19 08:25 Sodium Bicarbonate FEEDTUBE PRN PRN For Clogged Feeding Tube Sodium Chloride 10 ml 03/06/19 10:00 03/09/19 22:05 Sodium Chloride Flush Syringe 10 Ml IV 10 ml BID GEMMA Administration Sodium Chloride 10 ml 03/06/19 05:37 Sodium Chloride Flush Syringe 10 Ml IV PRN PRN LINE FLUSH
[2019-03-10] MEDS: FAMOTIDINE 20 MG TAB PO SCH ×2 (10:00→21:40)
--- NOTE | 2019-03-10 10:12 | Progress Note ---
Assessment and Plan Acute hypercapnic respiratory failure on MVS Laryngeal carcinoma s/p chemo-radiation Acute toxic-metabolic encephalopathy Oropharyngeal dysphagia s/p PEG -VAP bundle addressed -Aspiration precautions, HOB>40 degrees - Lung protective strategies -CXR, ABG prn -CBC, BMP prn -Enteric nutrition via PEG tube with glycemic control -Agitation and analgesia prn -VTE prophylaxis -Stress ulcer prophylaxis - Accuchecks with glycemic control for SSI (While critically ill target blood glucose of 140-180 mg/dL; avoid hypoglycemia) - Mobility protocol for pressure ulcer prevention - Monitor hemodynamics closely -Monitor electrolyte profile closely and replete as indicated - Conitue chronic home medications, resume as clinically indicated -Analgesia per CPOE Discussed with her extensively. She will not be extubated, and needs a laryngectomy. Waiting on a bed CONDITION: CRITICAL PROGNOSIS: GUARDED CODE STATUS: FULL CODE The high probability of a clinically significant, sudden or life-threatening deterioration of the [respiratory, neurology] system(s) required my full and direct attention, intervention and personal management. The aggregate critical care time was [35] minutes without overlap. Time includes spent on; [x] Data Review and interpretation [x] Patient assessment and monitoring of vital signs [x] Documentation [x] Medication orders and management Subjective Date of service: 03/10/19 Principal diagnosis: throat cancer Interval history: Patient is seen today for: Acute hypercapnic respiratory failure; Laryngeal carcinoma s/p chemo-radiation; Acute toxic-metabolic encephalopathy; Oropharyngeal dysphagia; s/p PEG Seen and examined at bedside; 24hour events reviewed; nursing and respiratory care staff consulted; no adverse overnight events reported to me; resting in bed now; Vitals, labs, medications, chart reviewed. Had self-extubated requiring re-intubation for severe respiratory distress. Orally intubated on PSV and is comfortable. She is awake and alert and communicates- non-verbal and by writing on a pad. Objective Vital Signs - 12hr 03/09/19 03/09/19 03/09/19 22:30 23:00 23:30 Temperature Pulse Rate 134 H 95 H 82 Pulse Rate [ From Monitor] Pulse Rate [ Left Dorsalis Pedis] Pulse Rate [ Right Dorsalis Pedis] Respiratory 22 15 15 Rate Blood Pressure 125/56 121/55 123/53 O2 Sat by Pulse 99 99 99 Oximetry 03/10/19 03/10/19 03/10/19 00:00 00:30 00:55 Temperature 98.4 F Pulse Rate 75 71 98 H Pulse Rate [ 89 From Monitor] Pulse Rate [ 89 Left Dorsalis Pedis] Pulse Rate [ 89 Right Dorsalis Pedis] Respiratory 10 L 10 L Rate Blood Pressure 132/56 128/58 O2 Sat by Pulse 100 100 Oximetry 03/10/19 03/10/19 03/10/19 01:00 01:04 01:08 Temperature Pulse Rate 80 71 Pulse Rate [ From Monitor] Pulse Rate [ Left Dorsalis Pedis] Pulse Rate [ Right Dorsalis Pedis] Respiratory 12 8 L Rate Blood Pressure 129/60 129/67 O2 Sat by Pulse 99 100 100 Oximetry 03/10/19 03/10/19 03/10/19 01:30 02:00 02:30 Temperature Pulse Rate 68 76 69 Pulse Rate [ From Monitor] Pulse Rate [ Left Dorsalis Pedis] Pulse Rate [ Right Dorsalis Pedis] Respiratory 12 14 12 Rate Blood Pressure 126/59 126/61 120/57 O2 Sat by Pulse 100 100 100 Oximetry 03/10/19 03/10/19 03/10/19 03:00 03:30 04:00 Temperature 98.8 F Pulse Rate 68 88 67 Pulse Rate [ From Monitor] Pulse Rate [ Left Dorsalis Pedis] Pulse Rate [ 67 Right Dorsalis Pedis] Respiratory 13 19 13 Rate Blood Pressure 126/61 128/61 108/58 O2 Sat by Pulse 100 100 100 Oximetry 03/10/19 03/10/19 03/10/19 04:01 04:30 05:00 Temperature Pulse Rate 70 84 72 Pulse Rate [ From Monitor] Pulse Rate [ Left Dorsalis Pedis] Pulse Rate [ Right Dorsalis Pedis] Respiratory 17 9 L Rate Blood Pressure 108/58 130/67 127/64 O2 Sat by Pulse 100 100 100 Oximetry 03/10/19 03/10/19 03/10/19 05:30 06:00 06:30 Temperature Pulse Rate 77 77 69 Pulse Rate [ From Monitor] Pulse Rate [ Left Dorsalis Pedis] Pulse Rate [ Right Dorsalis Pedis] Respiratory 17 16 12 Rate Blood Pressure 135/62 133/64 121/60 O2 Sat by Pulse 100 97 97 Oximetry 03/10/19 03/10/19 03/10/19 07:00 07:30 08:00 Temperature 98.4 F Pulse Rate 70 80 77 Pulse Rate [ From Monitor] Pulse Rate [ Left Dorsalis Pedis] Pulse Rate [ 77 Right Dorsalis Pedis] Respiratory 12 14 14 Rate Blood Pressure 130/64 115/58 129/69 O2 Sat by Pulse 98 99 98 Oximetry 03/10/19 03/10/19 03/10/19 08:30 08:58 09:00 Temperature Pulse Rate 88 86 84 Pulse Rate [ From Monitor] Pulse Rate [ Left Dorsalis Pedis] Pulse Rate [ Right Dorsalis Pedis] Respiratory 16 18 Rate Blood Pressure 135/71 129/67 129/67 O2 Sat by Pulse 98 98 97 Oximetry Constitutional: no acute distress, alert, other (middle aged AAF, normocephalic and atraumatic with mildly increased resp effort at rest) Eyes: non-icteric ENT: oropharynx moist, other (ETT 23-24 cm LISA) Neck: supple, no lymphadenopathy, no JVD Effort: normal Ascultation: Bilateral: clear, diminished breath sounds Percussion: Bilateral: not dull Cardiovascular: regular rate and rhythm, other (S1,S2, no murmurs) Gastrointestinal: normoactive bowel sounds, soft, non-tender, non-distended Integumentary: normal Extremities: no cyanosis, no edema, pink and warm, pulses normal, no ischemia or petechiae Neurologic: normal mental status, non-focal exam, pupils equal and round, CN II- XII normal, motor strength normal and Psychiatric: mood appropriate, affect normal CBC and BMP: 03/08/19 08:45 03/08/19 08:45 ABG, PT/INR, D-dimer: ABG POC ABG pH 7.491 (7.35-7.45) H 03/10/19 04:22 ABG pH 7.395 pH Units (7.350-7.450) 03/09/19 04:34 POC ABG pCO2 43.0 (35-45) 03/10/19 04:22 ABG pCO2 46.4 mm Hg 03/09/19 04:34 POC ABG pO2 149 (80-105) H 03/10/19 04:22 ABG pO2 96.5 mm Hg (80.0-90.0) H 03/09/19 04:34 POC ABG HCO3 32.8 (22-26 mml/L) 03/10/19 04:22 POC ABG Total CO2 34 (23-27mmol/L) 03/10/19 04:22 POC ABG O2 Sat 99 03/10/19 04:22 ABG O2 Saturation 97.3 % (95.0-99.0) 03/09/19 04:34 PT/INR, D-dimer PT 15.2 Sec. (12.2-14.9) H 03/07/19 05:54 INR 1.21 (0.87-1.13) H 03/07/19 05:54 Abnormal lab findings: Abnormal Labs 03/06/19 03/06/19 03/06/19 03:37 05:05 05:18 WBC RDW Plt Count Lymph % (Auto) Bradford % (Auto) Lymph # Bradford # Seg Neutrophils % Seg Neutrophils # PT INR 1.17 H POC ABG pH POC ABG pCO2 48.9 H POC ABG pO2 393 H ABG pO2 ABG HCO3 ABG Hemoglobin Sodium Potassium Chloride BUN Creatinine Glucose POC Glucose 233 H Lactic Acid Albumin Urine WBC (Auto) 03/06/19 03/06/19 03/06/19 06:34 08:34 23:15 WBC RDW Plt Count Lymph % (Auto) Bradford % (Auto) Lymph # Bradford # Seg Neutrophils % Seg Neutrophils # PT INR POC ABG pH POC ABG pCO2 POC ABG pO2 ABG pO2 ABG HCO3 ABG Hemoglobin Sodium Potassium Chloride BUN Creatinine Glucose POC Glucose 122 H 110 H Lactic Acid 2.10 H* Albumin Urine WBC (Auto) 03/06/19 03/06/19 03/06/19 Unknown Unknown Unknown WBC 19.7 H RDW 15.5 H Plt Count 458 H Lymph % (Auto) Bradford % (Auto) 12.4 H Lymph # Bradford # 2.4 H Seg Neutrophils % Seg Neutrophils # 13.1 H PT INR 1.16 H POC ABG pH POC ABG pCO2 POC ABG pO2 ABG pO2 ABG HCO3 ABG Hemoglobin Sodium 135 L Potassium Chloride 91.7 L BUN 44 H Creatinine Glucose 273 H POC Glucose Lactic Acid Albumin 3.6 L Urine WBC (Auto) 03/06/19 03/07/19 03/07/19 Unknown 04:43 05:44 WBC RDW Plt Count Lymph % (Auto) Bradford % (Auto) Lymph # Bradford # Seg Neutrophils % Seg Neutrophils # PT INR POC ABG pH 7.487 H POC ABG pCO2 POC ABG pO2 131 H ABG pO2 ABG HCO3 ABG Hemoglobin Sodium Potassium Chloride BUN Creatinine Glucose POC Glucose 130 H Lactic Acid Albumin Urine WBC (Auto) 9.0 H 03/07/19 03/07/19 03/07/19 05:54 05:54 05:54 WBC RDW 15.8 H Plt Count Lymph % (Auto) 11.3 L Bradford % (Auto) 13.6 H Lymph # 1.0 L Bradford # 1.2 H Seg Neutrophils % 73.1 H Seg Neutrophils # PT 15.2 H INR 1.21 H POC ABG pH POC ABG pCO2 POC ABG pO2 ABG pO2 ABG HCO3 ABG Hemoglobin Sodium Potassium 3.5 L Chloride BUN 23 H Creatinine Glucose 123 H POC Glucose Lactic Acid Albumin Urine WBC (Auto) 03/07/19 03/07/19 03/07/19 12:57 18:27 18:41 WBC RDW Plt Count Lymph % (Auto) Bradford % (Auto) Lymph # Bradford # Seg Neutrophils % Seg Neutrophils # PT INR POC ABG pH 7.461 H POC ABG pCO2 POC ABG pO2 109 H ABG pO2 ABG HCO3 ABG Hemoglobin Sodium Potassium Chloride BUN Creatinine Glucose POC Glucose 108 H 108 H Lactic Acid Albumin Urine WBC (Auto) 03/08/19 03/08/19 03/08/19 00:03 05:33 08:28 WBC RDW Plt Count Lymph % (Auto) Bradford % (Auto) Lymph # Bradford # Seg Neutrophils % Seg Neutrophils # PT INR POC ABG pH 7.483 H POC ABG pCO2 POC ABG pO2 107 H ABG pO2 ABG HCO3 ABG Hemoglobin Sodium Potassium Chloride BUN Creatinine Glucose POC Glucose 117 H 107 H Lactic Acid Albumin Urine WBC (Auto) 03/08/19 03/08/19 03/08/19 08:45 08:45 12:15 WBC RDW Plt Count Lymph % (Auto) 8.0 L Bradford % (Auto) 10.4 H Lymph # 0.6 L Bradford # Seg Neutrophils % 79.4 H Seg Neutrophils # PT INR POC ABG pH POC ABG pCO2 POC ABG pO2 ABG pO2 ABG HCO3 ABG Hemoglobin Sodium Potassium 3.3 L Chloride BUN Creatinine 0.6 L Glucose 120 H POC Glucose 197 H Lactic Acid Albumin 2.9 L Urine WBC (Auto) 03/08/19 03/09/19 03/09/19 23:47 04:34 06:18 WBC RDW Plt Count Lymph % (Auto) Bradford % (Auto) Lymph # Bradford # Seg Neutrophils % Seg Neutrophils # PT INR POC ABG pH POC ABG pCO2 POC ABG pO2 ABG pO2 96.5 H ABG HCO3 27.8 H ABG Hemoglobin 10.7 L Sodium Potassium Chloride BUN Creatinine Glucose POC Glucose 120 H 119 H Lactic Acid Albumin Urine WBC (Auto) 03/09/19 03/09/19 03/09/19 12:13 18:12 23:49 WBC RDW Plt Count Lymph % (Auto) Bradford % (Auto) Lymph # Bradford # Seg Neutrophils % Seg Neutrophils # PT INR POC ABG pH POC ABG pCO2 POC ABG pO2 ABG pO2 ABG HCO3 ABG Hemoglobin Sodium Potassium Chloride BUN Creatinine Glucose POC Glucose 133 H 120 H 106 H Lactic Acid Albumin Urine WBC (Auto) 03/10/19 03/10/19 04:22 05:49 WBC RDW Plt Count Lymph % (Auto) Bradford % (Auto) Lymph # Bradford # Seg Neutrophils % Seg Neutrophils # PT INR POC ABG pH 7.491 H POC ABG pCO2 POC ABG pO2 149 H ABG pO2 ABG HCO3 ABG Hemoglobin Sodium Potassium Chloride BUN Creatinine Glucose POC Glucose 118 H Lactic Acid Albumin Urine WBC (Auto) Chest x-ray: image reviewed Allied health notes reviewed: RT
[2019-03-10] MEDS: HEPARIN 5,000 UNIT/1 ML VIAL SUB-Q SCH ×2 (14:00→23:23)
[2019-03-10] MEDS: ONDANSETRON 4 MG/2 ML INJ IV PRN (16:36)
--- NOTE | 2019-03-11 03:31 | XRay Report ---
CHEST 1 VIEW INDICATION: follow up respiratory failure. COMPARISON: Previous day. FINDINGS: Support devices: Unchanged. Heart: Within normal limits. Lungs/Pleura: Residual atelectasis at the bases right greater than left. Additional findings: None. IMPRESSION: Mild residual basilar atelectasis. Signer Name: Chad Toro MD Signed: 03/11/2019 3:26 AM Workstation Name: [id number]
[2019-03-11] MEDS: INSULIN LISPRO 100 UNIT/ML SUB-Q SCH ×4 (06:54→18:25)
[2019-03-11] MEDS: HEPARIN 5,000 UNIT/1 ML VIAL SUB-Q SCH ×3 (06:54→22:26)
--- NOTE | 2019-03-11 07:10 | Progress Note ---
Assessment and Plan CCT 40 min (1) Respiratory distress Current Visit: Yes Status: Acute Plan to address problem: Etiology is unclear however patient has known history of laryngeal cancer and she has been quite congested lately. She is currently intubated secondary to the respiratory distress. Will monitor ABG . Pulmonology/Barrel Roller Operator consult appreciated. She will be monitored in the intensive care unit. Waiting for transfer to [facility] (2) Laryngeal cancer Current Visit: Yes Status: Acute Plan to address problem: She is status post radiation and chemotherapy. Waiting for Laryngectomy. Talked with [facility]. Patient was following with [facility] till May 2018 and changed her care to [facility].Details at [facility] not available. (3) Dehydration Current Visit: Yes Status: Acute Plan to address problem: She is placed on IV fluid normal saline. Will monitor BUN and creatinine. (4) Hyperglycemia Current Visit: Yes Status: Acute Plan to address problem: Patient does not have any known history of diabetes mellitus however she was found to be hyperglycemic. Sliding scale insulin. We will monitor blood glucose closely. We will also ch mary hemoglobin A1c. (5) DVT prophylaxis Current Visit: Yes Status: Acute Plan to address problem: She is placed on subcutaneous heparin. (6) Full code status Current Visit: Yes Status: Acute Subjective Date of service: 03/10/19 Principal diagnosis: Ac hypercapnic resp failure; Laryngeal CA Acute encephalopathy (toxic/met) Interval history: Patient is a 58-year-old white female with known history of laryngeal cancer status post radiation and chemotherapy treatment. She is brought to the emergency room today with shortness of breath and increased secretion and congestion on her throat. According to who is by the bedside patient has been having mild chills over the last few days. There has been no fever. No chest pain and no nausea or vomiting. Upon arrival in the emergency room she was in respiratory distress and also h aving stridor, she was subsequently intubated. Her work-up in the emergency room reveals leukocytosis of 19,000 and a chest x- ray reveals COPD changes and possible infiltrate in the right base. Chemistry also reveals mild dehydration and hyperglycemia. Opens eyes and responsive.On Vent. Improving. Objective - Exam Narrative Exam: On Vent - Constitutional Vitals: Vital Signs - 12hr 03/10/19 03/10/19 03/10/19 19:30 19:45 19:46 Temperature 100.7 F H Pulse Rate 74 80 Respiratory 10 L Rate Blood Pressure 114/60 116/60 O2 Sat by Pulse 98 99 Oximetry 03/10/19 03/10/19 03/10/19 20:00 20:30 21:00 Temperature Pulse Rate 79 77 72 Respiratory 14 14 12 Rate Blood Pressure 118/64 132/59 117/55 O2 Sat by Pulse 97 97 98 Oximetry 03/10/19 03/10/19 03/10/19 21:31 22:00 22:31 Temperature Pulse Rate 73 77 71 Respiratory 12 14 13 Rate Blood Pressure 134/46 124/56 124/56 O2 Sat by Pulse 97 97 97 Oximetry 03/10/19 03/10/19 03/10/19 23:00 23:01 23:27 Temperature Pulse Rate 68 69 78 Respiratory 12 12 Rate Blood Pressure 114/52 114/52 114/52 O2 Sat by Pulse 97 97 97 Oximetry 03/11/19 03/11/19 03/11/19 00:00 00:01 01:00 Temperature 97.8 F Pulse Rate 74 85 71 Respiratory 13 13 Rate Blood Pressure 123/53 118/60 O2 Sat by Pulse 97 97 Oximetry 03/11/19 03/11/19 03/11/19 02:00 03:00 03:49 Temperature Pulse Rate 68 69 65 Respiratory 12 12 Rate Blood Pressure 119/63 116/59 116/59 O2 Sat by Pulse 97 97 97 Oximetry 03/11/19 03/11/19 03/11/19 04:00 05:00 06:00 Temperature 96.8 F L Pulse Rate 67 64 68 Respiratory 12 11 L 12 Rate Blood Pressure 125/60 111/55 116/60 O2 Sat by Pulse 97 97 97 Oximetry General appearance: Present: mild distress, well-nourished - EENT Eyes: PERRL, EOM intact ENT: hearing intact, clear oral mucosa Ears: bilateral: normal - Neck Neck: supple, normal ROM - Respiratory Respiratory effort: normal Respiratory: bilateral: CTA - Breasts Breasts: normal - Cardiovascular Heart rate: 78 Rhythm: regular Heart Sounds: Present: S1 & S2. Absent: gallop, rub Extremities: pulses intact, No edema, normal color, Full ROM - Gastrointestinal General gastrointestinal: Present: soft, non-tender, non-distended, normal bowel sounds - Genitourinary Female genitourinary: normal - Integumentary Integumentary: clear, warm, dry - Musculoskeletal Musculoskeletal: 1, strength equal bilaterally - Neurologic Neurologic: moves all extremities - Psychiatric Psychiatric: memory intact, appropriate mood/affect, intact judgment & insight - Labs CBC & Chem 7: 03/08/19 08:45 03/08/19 08:45 Labs: Abnormal lab results 03/09/19 03/10/19 03/10/19 Range/Units 23:49 12:33 18:11 POC ABG pCO2 (35-45) POC Glucose 106 H 113 H 119 H (70-105) 03/11/19 03/11/19 Range/Units 01:09 04:35 POC ABG pCO2 49.7 H (35-45) POC Glucose 109 H (70-105)
--- NOTE | 2019-03-11 07:46 | Hem/Onc Progress Note ---
Assessment and Plan 1. 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 The patient had undergone ENT evaluation recently, which showed persistent tumor. Referral to [facility] was done. There is a question of going to [facility]. Stridor, hence, intubated. 2. PEG tube. 3. Port present. 4. Hyperglycemia. 5. The patient was requesting extubation and discharged. I will follow the patient during inpatient stay. trach being evaluated transfer to [facility] pending d/w dr Bonilla - Patient Problems (1) Laryngeal cancer Current Visit: Yes Status: Acute Subjective Date of service: 03/11/19 Principal diagnosis: throat cancer Interval history: on vent - pending transfer to [facility] Objective - Exam Narrative Exam: Pain - none General appearance - awake Performance status dependent Eyes - no icterus ENT - intubated LNs cervical not palpable Neck - no LN Respiratory Normal Breath sounds - CTA anteriorly CVS S1 S2 + Extremities no edema General GI Soft - PEG + Rectal deferred female - deferred Skin warm PORT + Musculoskeletal - moving limbs Neurologically awake - Constitutional Vitals: Last Vital Signs Temp 96.8 F L 03/11/19 04:00 Pulse 68 03/11/19 06:00 Resp 12 03/11/19 06:00 BP 116/60 03/11/19 06:00 Pulse Ox 97 03/11/19 06:00 - Labs Lab Results: Laboratory Results - last 24 hr 03/10/19 03/10/19 03/11/19 12:33 18:11 01:09 POC ABG pH POC ABG pCO2 POC ABG pO2 POC ABG HCO3 POC ABG Total CO2 POC ABG O2 Sat POC ABG Base Excess FiO2 POC Glucose 113 H 119 H 109 H 03/11/19 03/11/19 04:35 06:36 POC ABG pH 7.425 POC ABG pCO2 49.7 H POC ABG pO2 97 POC ABG HCO3 32.6 POC ABG Total CO2 34 POC ABG O2 Sat 98 POC ABG Base Excess 8 FiO2 30 POC Glucose 94 Medications & Allergies - Medications Allergies/Adverse Reactions: Allergies No Known Allergies Allergy (Unverified 03/06/19 03:42) Home Medications: Home Medications Medication Instructions Recorded Confirmed Last Taken Type Gabapentin [Neurontin] 300 mg PO TID 1103/06/19 03/05/19 17:00 History 300 mg Naproxen Sodium [Aleve] 220 mg PO Q6H PRN 03/06/19 03/06/19 03/05/19 15:00 History 1 tab Oxycodone HCl [oxyCODONE] 10 mg PO Q6HR PRN 03/06/19 03/06/19 03/06/19 16:30 History 10 mg fentaNYL [Fentanyl] 25 mcg TRANSDERMA Q72H 03/06/19 03/06/19 03/04/19 08:00 History 25 mcg Active Medications: Generic Name Dose Route Start Last Admin Trade Name Freq PRN Reason Stop Dose Admin Acetaminophen 650 mg 03/08/19 00:51 03/08/19 09:00 Tylenol FEEDTUBE 650 mg Q6H PRN Administration Pain, Mild (1-3) Albuterol 2.5 mg 03/06/19 05:37 Proventil IH Q3HRT PRN Shortness Of Breath Lipase/Protease/Amylase 1 each 03/06/19 08:[address] 10,500 Unit FEEDTUBE PRN PRN For Clogged Feeding Tube Dextrose 0 ml 03/06/19 06:26 D50w (25gm) Syringe IV Q30MIN PRN Hypoglycemia Protocol Famotidine 20 mg 03/07/19 10:00 03/10/19 21:40 Pepcid PO 20 mg BID GEMMA Administration Fentanyl 50 mcg 03/08/19 14:28 03/09/19 15:02 Sublimaze IV 50 mcg Q10MIN PRN Administration ANALGESIA Heparin Sodium (Porcine) 5,000 unit 03/06/19 06:00 03/11/19 06:54 Heparin SUB-Q Not Given Q8HR GEMMA Hydrophilic Ointment 1 applic 03/06/19 04:18 Vaseline Lip Therapy TP Q2HR PRN Dry Lips Midazolam HCl 100 mg/ Sodium 100 mls @ 2 mls/hr 03/06/19 05:00 03/07/19 19:20 Chloride IV 0 mg/hr TITR GEMMA 0 mls/hr Titration Protocol 2 MG/HR Norepinephrine 4 mg in 250 mls @ 7.5 mls/hr 03/08/19 12:00 Levophed Drip 4 Mg/Ns 250 Ml IV TITR GEMMA Protocol 2 MCG/MIN Propofol 1,000 mg in 100 mls @ 1.842 mls/hr 03/08/19 12:00 03/10/19 17:00 Diprivan 10 Mg/Ml IV 0 mcg/kg/min TITR GEMMA 0 mls/hr Titration Protocol 5 MCG/KG/MIN Fentanyl Citrate 2,000 mcg in 100 mls @ 3.07 mls/hr 03/08/19 15:00 03/10/19 2 0:36 Fentanyl Drip Premix IV 2 mcg/kg/hr TITR GEMMA 6.14 mls/hr Administration Protocol 1 MCG/KG/HR Insulin Human Lispro 0 unit 03/06/19 06:00 03/11/19 06:54 Humalog SUB-Q Not Given Q6HR [facility] Protocol Midazolam HCl 2 mg 03/06/19 04:18 03/07/19 07:08 Versed IV 2 mg Q10MIN PRN Administration Sedation Multi-Ingred Cream/Lotion/Oil/Oint 1 applic 03/06/19 04:18 Artificial Tears Ophth Oint OU Q4HR PRN Dry Eye(s) Ondansetron HCl 4 mg 03/06/19 05:37 03/10/19 16:36 Zofran IV 4 mg Q8H PRN Administration Nausea And Vomiting Simple Syrup 15 ml 03/06/19 08:25 Simple Syrup FEEDTUBE PRN PRN Hypoglycemia Simple Syrup 30 ml 03/06/19 08:25 Simple Syrup FEEDTUBE PRN PRN Hypoglycemia Sodium Bicarbonate 325 mg 03/06/19 08:25 Sodium Bicarbonate FEEDTUBE PRN PRN For Clogged Feeding Tube Sodium Chloride 10 ml 03/06/19 10:00 03/10/19 10:00 Sodium Chloride Flush Syringe 10 Ml IV 10 ml BID GEMMA Administration Sodium Chloride 10 ml 03/06/19 05:37 Sodium Chloride Flush Syringe 10 Ml IV PRN PRN LINE FLUSH
[2019-03-11] MEDS: FAMOTIDINE 20 MG TAB PO SCH ×2 (10:23→21:23)
--- NOTE | 2019-03-11 10:31 | Progress Note ---
Assessment and Plan Acute hypercapnic respiratory failure on MVS Laryngeal carcinoma s/p chemo-radiation Acute toxic-metabolic encephalopathy Oropharyngeal dysphagia s/p PEG -VAP bundle addressed -Aspiration precautions, HOB>40 degrees - Lung protective strategies -CXR, ABG prn -CBC, BMP prn -Enteric nutrition via PEG tube with glycemic control -Agitation and analgesia prn -VTE prophylaxis -Stress ulcer prophylaxis - Accuchecks with glycemic control for SSI (While critically ill target blood glucose of 140-180 mg/dL; avoid hypoglycemia) - Mobility protocol for pressure ulcer prevention - Monitor hemodynamics closely -Monitor electrolyte profile closely and replete as indicated - Continue chronic home medications, resume as clinically indicated -Analgesia per CPOE Transfer to [facility] once bed is available fro ongoing care CONDITION: CRITICAL PROGNOSIS: GUARDED CODE STATUS: FULL CODE The high probability of a clinically significant, sudden or life-threatening deterioration of the [respiratory, neurology] system(s) required my full and direct attention, intervention and personal management. The aggregate critical care time was [30] minutes without overlap. Time includes spent on; [x] Data Review and interpretation [x] Patient assessment and monitoring of vital signs [x] Documentation [x] Medication orders and management Subjective Date of service: 03/11/19 Principal diagnosis: throat cancer Interval history: Patient is seen today for: Acute hypercapnic respiratory failure; Laryngeal carcinoma s/p chemo-radiation; Acute toxic-metabolic encephalopathy; Oropharyngeal dysphagia; s/p PEG Seen and examined at bedside; 24hour events reviewed; nursing and respiratory care staff consulted; no adverse overnight events reported to me; resting in bed now; Vitals, labs, medications, chart reviewed. Had self-extubated requiring re-intubation for severe respiratory distress. Orally intubated on PSV and is comfortable. She is awake and alert and communicates- non-verbal and by writing on a pad. Objective Vital Signs - 12hr 03/10/19 03/10/19 03/10/19 22:31 23:00 23:01 Temperature Pulse Rate 71 68 69 Respiratory 13 12 12 Rate Blood Pressure 124/56 114/52 114/52 O2 Sat by Pulse 97 97 97 Oximetry 03/10/19 03/11/19 03/11/19 23:27 00:00 00:01 Temperature 97.8 F Pulse Rate 78 74 85 Respiratory 14 Rate Blood Pressure 114/52 123/53 O2 Sat by Pulse 97 98 Oximetry 03/11/19 03/11/19 03/11/19 01:00 02:00 03:00 Temperature Pulse Rate 71 68 69 Respiratory 13 12 12 Rate Blood Pressure 118/60 119/63 116/59 O2 Sat by Pulse 97 97 97 Oximetry 03/11/19 03/11/19 03/11/19 03:49 04:00 05:00 Temperature 96.8 F L Pulse Rate 65 67 64 Respiratory 12 11 L Rate Blood Pressure 116/59 125/60 111/55 O2 Sat by Pulse 97 97 97 Oximetry 03/11/19 03/11/19 03/11/19 06:00 07:00 08:00 Temperature Pulse Rate 68 64 103 H Respiratory 12 12 16 Rate Blood Pressure 116/60 118/60 117/73 O2 Sat by Pulse 97 97 98 Oximetry 03/11/19 03/11/19 09:00 10:05 Temperature Pulse Rate 81 70 Respiratory 12 15 Rate Blood Pressure 119/65 123/54 O2 Sat by Pulse 98 98 Oximetry Constitutional: no acute distress, alert, other (middle aged AAF, normocephalic and atraumatic with mildly increased resp effort at rest) Eyes: non-icteric ENT: oropharynx moist, other (ETT 23-24 cm LISA) Neck: supple, no lymphadenopathy, no JVD Effort: normal Ascultation: Bilateral: clear, diminished breath sounds Percussion: Bilateral: not dull Cardiovascular: regular rate and rhythm, other (S1,S2, no murmurs) Gastrointestinal: normoactive bowel sounds, soft, non-tender, non-distended Integumentary: normal Extremities: no cyanosis, no edema, pink and warm, pulses normal, no ischemia or petechiae Neurologic: normal mental status, non-focal exam, pupils equal and round, CN II- XII normal, motor strength normal and Psychiatric: mood appropriate, affect normal CBC and BMP: 03/08/19 08:45 03/08/19 08:45 ABG, PT/INR, D-dimer: ABG POC ABG pH 7.425 (7.35-7.45) 03/11/19 04:35 ABG pH 7.395 pH Units (7.350-7.450) 03/09/19 04:34 POC ABG pCO2 49.7 (35-45) H 03/11/19 04:35 ABG pCO2 46.4 mm Hg 03/09/19 04:34 POC ABG pO2 97 (80-105) 03/11/19 04:35 ABG pO2 96.5 mm Hg (80.0-90.0) H 03/09/19 04:34 POC ABG HCO3 32.6 (22-26 mml/L) 03/11/19 04:35 POC ABG Total CO2 34 (23-27mmol/L) 03/11/19 04:35 POC ABG O2 Sat 98 03/11/19 04:35 ABG O2 Saturation 97.3 % (95.0-99.0) 03/09/19 04:34 PT/INR, D-dimer PT 15.2 Sec. (12.2-14.9) H 03/07/19 05:54 INR 1.21 (0.87-1.13) H 03/07/19 05:54 Abnormal lab findings: Abnormal Labs 03/06/19 03/06/19 03/06/19 03:37 05:05 05:18 WBC RDW Plt Count Lymph % (Auto) [place] % (Auto) Lymph # [place] # Seg Neutrophils % Seg Neutrophils # PT INR 1.17 H POC ABG pH POC ABG pCO2 48.9 H POC ABG pO2 393 H ABG pO2 ABG HCO3 ABG Hemoglobin Sodium Potassium Chloride BUN Creatinine Glucose POC Glucose 233 H Lactic Acid Albumin Urine WBC (Auto) 03/06/19 03/06/19 03/06/19 06:34 08:34 23:15 WBC RDW Plt Count Lymph % (Auto) [place] % (Auto) Lymph # [place] # Seg Neutrophils % Seg Neutrophils # PT INR POC ABG pH POC ABG pCO2 POC ABG pO2 ABG pO2 ABG HCO3 ABG Hemoglobin Sodium Potassium Chloride BUN Creatinine Glucose POC Glucose 122 H 110 H Lactic Acid 2.10 H* Albumin Urine WBC (Auto) 03/06/19 03/06/19 03/06/19 Unknown Unknown Unknown WBC 19.7 H RDW 15.5 H Plt Count 458 H Lymph % (Auto) [place] % (Auto) 12.4 H Lymph # [place] # 2.4 H Seg Neutrophils % Seg Neutrophils # 13.1 H PT INR 1.16 H POC ABG pH POC ABG pCO2 POC ABG pO2 ABG pO2 ABG HCO3 ABG Hemoglobin Sodium 135 L Potassium Chloride 91.7 L BUN 44 H Creatinine Glucose 273 H POC Glucose Lactic Acid Albumin 3.6 L Urine WBC (Auto) 03/06/19 03/07/19 03/07/19 Unknown 04:43 05:44 WBC RDW Plt Count Lymph % (Auto) [place] % (Auto) Lymph # [place] # Seg Neutrophils % Seg Neutrophils # PT INR POC ABG pH 7.487 H POC ABG pCO2 POC ABG pO2 131 H ABG pO2 ABG HCO3 ABG Hemoglobin Sodium Potassium Chloride BUN Creatinine Glucose POC Glucose 130 H Lactic Acid Albumin Urine WBC (Auto) 9.0 H 03/07/19 03/07/19 03/07/19 05:54 05:54 05:54 WBC RDW 15.8 H Plt Count Lymph % (Auto) 11.3 L [place] % (Auto) 13.6 H Lymph # 1.0 L [place] # 1.2 H Seg Neutrophils % 73.1 H Seg Neutrophils # PT 15.2 H INR 1.21 H POC ABG pH POC ABG pCO2 POC ABG pO2 ABG pO2 ABG HCO3 ABG Hemoglobin Sodium Potassium 3.5 L Chloride BUN 23 H Creatinine Glucose 123 H POC Glucose Lactic Acid Albumin Urine WBC (Auto) 03/07/19 03/07/19 03/07/19 12:57 18:27 18:41 WBC RDW Plt Count Lymph % (Auto) [place] % (Auto) Lymph # [place] # Seg Neutrophils % Seg Neutrophils # PT INR POC ABG pH 7.461 H POC ABG pCO2 POC ABG pO2 109 H ABG pO2 ABG HCO3 ABG Hemoglobin Sodium Potassium Chloride BUN Creatinine Glucose POC Glucose 108 H 108 H Lactic Acid Albumin Urine WBC (Auto) 03/08/19 03/08/19 03/08/19 00:03 05:33 08:28 WBC RDW Plt Count Lymph % (Auto) [place] % (Auto) Lymph # [place] # Seg Neutrophils % Seg Neutrophils # PT INR POC ABG pH 7.483 H POC ABG pCO2 POC ABG pO2 107 H ABG pO2 ABG HCO3 ABG Hemoglobin Sodium Potassium Chloride BUN Creatinine Glucose POC Glucose 117 H 107 H Lactic Acid Albumin Urine WBC (Auto) 03/08/19 03/08/19 03/08/19 08:45 08:45 12:15 WBC RDW Plt Count Lymph % (Auto) 8.0 L [place] % (Auto) 10.4 H Lymph # 0.6 L [place] # Seg Neutrophils % 79.4 H Seg Neutrophils # PT INR POC ABG pH POC ABG pCO2 POC ABG pO2 ABG pO2 ABG HCO3 ABG Hemoglobin Sodium Potassium 3.3 L Chloride BUN Creatinine 0.6 L Glucose 120 H POC Glucose 197 H Lactic Acid Albumin 2.9 L Urine WBC (Auto) 03/08/19 03/09/19 03/09/19 23:47 04:34 06:18 WBC RDW Plt Count Lymph % (Auto) [place] % (Auto) Lymph # [place] # Seg Neutrophils % Seg Neutrophils # PT INR POC ABG pH POC ABG pCO2 POC ABG pO2 ABG pO2 96.5 H ABG HCO3 27.8 H ABG Hemoglobin 10.7 L Sodium Potassium Chloride BUN Creatinine Glucose POC Glucose 120 H 119 H Lactic Acid Albumin Urine WBC (Auto) 03/09/19 03/09/19 03/09/19 12:13 18:12 23:49 WBC RDW Plt Count Lymph % (Auto) [place] % (Auto) Lymph # [place] # Seg Neutrophils % Seg Neutrophils # PT INR POC ABG pH POC ABG pCO2 POC ABG pO2 ABG pO2 ABG HCO3 ABG Hemoglobin Sodium Potassium Chloride BUN Creatinine Glucose POC Glucose 133 H 120 H 106 H Lactic Acid Albumin Urine WBC (Auto) 03/10/19 03/10/19 03/10/19 04:22 05:49 12:33 WBC RDW Plt Count Lymph % (Auto) [place] % (Auto) Lymph # [place] # Seg Neutrophils % Seg Neutrophils # PT INR POC ABG pH 7.491 H POC ABG pCO2 POC ABG pO2 149 H ABG pO2 ABG HCO3 ABG Hemoglobin Sodium Potassium Chloride BUN Creatinine Glucose POC Glucose 118 H 113 H Lactic Acid Albumin Urine WBC (Auto) 03/10/19 03/11/19 03/11/19 18:11 01:09 04:35 WBC RDW Plt Count Lymph % (Auto) [place] % (Auto) Lymph # [place] # Seg Neutrophils % Seg Neutrophils # PT INR POC ABG pH POC ABG pCO2 49.7 H POC ABG pO2 ABG pO2 ABG HCO3 ABG Hemoglobin Sodium Potassium Chloride BUN Creatinine Glucose POC Glucose 119 H 109 H Lactic Acid Albumin Urine WBC (Auto) Allied health notes reviewed: RT
[2019-03-11] MEDS ORDERED: MAGNESIUM SULFATE 2 GM/50 ML BAG IV ONE (11:00)
[2019-03-11] MEDS ORDERED: POTASSIUM CHLORIDE 20 MEQ 20 MEQ/100 ML BAG IV SCH (11:00)
--- NOTE | 2019-03-11 17:05 | Progress Note ---
Assessment and Plan Assessment and plan: (1) Respiratory distress Current Visit: Yes Status: Acute Plan to address problem: Patient has known history of laryngeal cancer She is currently intubated secondary to the respiratory distress. Pulmonology/Reconditioning Associate following Awaiting transfer to [facility][ENT] (2) Laryngeal cancer Current Visit: Yes Status: Acute Plan to address problem: She is status post radiation and chemotherapy. Waiting for Laryngectomy. Talked with [facility]. Patient was following with [place] till May 2018 and changed her care to [facility].Details at [facility] not available. (3) Dehydration Current Visit: Yes Status: Acute Plan to address problem: She is placed on IV fluid normal saline. Will monitor BUN and creatinine. (4) Hyperglycemia Current Visit: Yes Status: Acute Plan to address problem: Patient does not have any known history of diabetes mellitus however she was found to be hyperglycemic. Sliding scale insulin. We will monitor blood glucose closely. We will also check hemoglobin A1c. (5) DVT prophylaxis Current Visit: Yes Status: Acute Plan to address problem: She is placed on subcutaneous heparin. (6) Full code status Current Visit: Yes Status: Acute DC and transfer to [place] when bed is available. Cr.Care time 34 min History Interval history: Patient seen and examined this morning medical records reviewed The patient is intubated on ventilatory support Awaiting transfer to [facility] Physical - Constitutional Vitals: Temp Pulse Resp BP Pulse Ox 98.1 F 74 18 132/66 98 03/11/19 15:55 03/11/19 14:00 03/11/19 14:00 03/11/19 14:00 03/11/19 14:00 General appearance: Present: mild distress, well-nourished, other (intubated on vent) - EENT Eyes: Present: PERRL, EOM intact - Neck Neck: Present: supple, normal ROM - Respiratory Respiratory effort: normal Respiratory: bilateral: diminished, rhonchi, negative: rales, wheezing - Cardiovascular Rhythm: regular Heart Sounds: Present: S1 & S2 - Extremities Extremities: no ischemia, No edema - Abdominal General gastrointestinal: soft, non-tender, non-distended, normal bowel sounds, other (PEG in place) - Integumentary Integumentary: Present: clear, warm - Psychiatric Psychiatric: other (intubated on vent) - Neurologic Neurologic: other (on vent) Results - Labs CBC & Chem 7: 03/08/19 08:45 03/08/19 08:45 Labs: Laboratory Last Values WBC 7.4 K/mm3 (4.5-11.0) 03/08/19 08:45 RBC 4.08 M/mm3 (3.65-5.03) 03/08/19 08:45 Hgb 12.1 gm/dl (10.1-14.3) 03/08/19 08:45 Hct 36.2 % (30.3-42.9) 03/08/19 08:45 MCV 89 fl (79-97) 03/08/19 08:45 MCH 30 pg (28-32) 03/08/19 08:45 MCHC 33 % (30-34) 03/08/19 08:45 RDW 15.1 % (13.2-15.2) 03/08/19 08:45 Plt Count 331 K/mm3 (140-440) 03/08/19 08:45 Lymph % (Auto) 8.0 % (13.4-35.0) L 03/08/19 08:45 [place] % (Auto) 10.4 % (0.0-7.3) H 03/08/19 08:45 Eos % (Auto) 1.6 % (0.0-4.3) 03/08/19 08:45 Baso % (Auto) 0.6 % (0.0-1.8) 03/08/19 08:45 Lymph # 0.6 K/mm3 (1.2-5.4) L 03/08/19 08:45 [place] # 0.8 K/mm3 (0.0-0.8) 03/08/19 08:45 Eos # 0.1 K/mm3 (0.0-0.4) 03/08/19 08:45 Baso # 0.0 K/mm3 (0.0-0.1) 03/08/19 08:45 Seg Neutrophils % 79.4 % (40.0-70.0) H 03/08/19 08:45 Seg Neutrophils # 5.9 K/mm3 (1.8-7.7) 03/08/19 08:45 PT 15.2 Sec. (12.2-14.9) H 03/07/19 05:54 INR 1.21 (0.87-1.13) H 03/07/19 05:54 APTT 32.6 Sec. (24.2-36.6) 03/07/19 05:54 POC ABG pH 7.425 (7.35-7.45) 03/11/19 04:35 ABG pH 7.395 pH Units (7.350-7.450) 03/09/19 04:34 POC ABG pCO2 49.7 (35-45) H 03/11/19 04:35 ABG pCO2 46.4 mm Hg 03/09/19 04:34 POC ABG pO2 97 (80-105) 03/11/19 04:35 ABG pO2 96.5 mm Hg (80.0-90.0) H 03/09/19 04:34 POC ABG HCO3 32.6 (22-26 mml/L) 03/11/19 04:35 ABG HCO3 27.8 mmol/L (20.0-26.0) H 03/09/19 04:34 POC ABG Total CO2 34 (23-27mmol/L) 03/11/19 04:35 POC ABG O2 Sat 98 03/11/19 04:35 ABG O2 Saturation 97.3 % (95.0-99.0) 03/09/19 04:34 ABG O2 Content 14.5 (0.0-44) 03/09/19 04:34 POC ABG Base Excess 8 ((-2) - (+3)mmol/L) 03/11/19 04:35 ABG Base Excess 2.4 mmol/L (-2.0-3.0) 03/09/19 04:34 ABG Hemoglobin 10.7 gm/dl (12.0-16.0) L 03/09/19 04:34 ABG Carboxyhemoglobin 1.2 % (0.0-5.0) 03/09/19 04:34 ABG Methemoglobin 0.0 % (0.0-1.5) 03/09/19 04:34 Oxyhemoglobin 96.1 % (95.0-99.0) 03/09/19 04:34 FiO2 30 % 03/11/19 04:35 Sodium 141 mmol/L (137-145) 03/08/19 08:45 Potassium 3.3 mmol/L (3.6-5.0) L 03/08/19 08:45 Chloride 102.2 mmol/L (98-107) 03/08/19 08:45 Carbon Dioxide 24 mmol/L (22-30) 03/08/19 08:45 Anion Gap 18 mmol/L 03/08/19 08:45 BUN 15 mg/dL (7-17) 03/08/19 08:45 Creatinine 0.6 mg/dL (0.7-1.2) L 03/08/19 08:45 Estimated GFR > 60 ml/min 03/08/19 08:45 BUN/Creatinine Ratio 25 % 03/08/19 08:45 Glucose 120 mg/dL (65-100) H 03/08/19 08:45 POC Glucose 110 (70-105) H 03/11/19 14:09 Hemoglobin A1c 5.6 % (4-6) 03/06/19 10:53 Lactic Acid 0.90 mmol/L (0.7-2.0) 03/06/19 10:53 Calcium 9.1 mg/dL (8.4-10.2) 03/08/19 08:45 Total Bilirubin < 0.20 mg/dL (0.1-1.2) 03/08/19 08:45 AST 22 units/L (5-40) 03/08/19 08:45 ALT 14 units/L (7-56) 03/08/19 08:45 Alkaline Phosphatase 100 units/L (35-129) 03/08/19 08:45 Troponin T < 0.010 ng/mL (0.00-0.029) 03/06/19 Unknown Total Protein 6.6 g/dL (6.3-8.2) 03/08/19 08:45 Albumin 2.9 g/dL (3.9-5) L 03/08/19 08:45 Albumin/Globulin Ratio 0.8 % 03/08/19 08:45 Urine Color Yellow (Yellow) 03/06/19 Unknown Urine Turbidity Hazy (Clear) 03/06/19 Unknown Urine pH 5.0 (5.0-7.0) 03/06/19 Unknown Ur Specific [place] 1.015 (1.003-1.030) 03/06/19 Unknown Urine Protein 100 mg/dl mg/dL (Negative) 03/06/19 Unknown Urine Glucose (UA) 50 mg/dL (Negative) 03/06/19 Unknown Urine Ketones Neg mg/dL (Negative) 03/06/19 Unknown Urine Blood Neg (Negative) 03/06/19 Unknown Urine Nitrite Neg (Negative) 03/06/19 Unknown Urine Bilirubin Neg (Negative) 03/06/19 Unknown Urine Urobilinogen < 2.0 mg/dL (<2.0) 03/06/19 Unknown Ur Leukocyte Esterase Neg (Negative) 03/06/19 Unknown Urine WBC (Auto) 9.0 /HPF (0.0-6.0) H 03/06/19 Unknown Urine RBC (Auto) 3.0 /HPF (0.0-6.0) 03/06/19 Unknown U Epithel Cells (Auto) 1.0 /HPF (0-13.0) 03/06/19 Unknown Urine Bacteria (Auto) 1+ /HPF (Negative) 03/06/19 Unknown Granular Casts 3 /LPF 03/06/19 Unknown Urine Mucus Few /HPF 03/06/19 Unknown Active Medications - Current Medications Current Medications: Generic Name Dose Route Start Last Admin Trade Name Freq PRN Reason Stop Dose Admin Acetaminophen 650 mg 03/08/19 00:51 03/08/19 09:00 Tylenol FEEDTUBE 650 mg Q6H PRN Administration Pain, Mild (1-3) Albuterol 2.5 mg 03/06/19 05:37 Proventil IH Q3HRT PRN Shortness Of Breath Lipase/Protease/Amylase 1 each 03/06/19 08:25 Pancreaze 10,500 Unit FEEDTUBE PRN PRN For Clogged Feeding Tube Dextrose 0 ml 03/06/19 06:26 D50w (25gm) Syringe IV Q30MIN PRN Hypoglycemia Protocol Famotidine 20 mg 03/07/19 10:00 03/11/19 10:23 Pepcid PO 20 mg BID GEMMA Administration Heparin Sodium (Porcine) 5,000 unit 03/06/19 06:00 03/11/19 14:06 Heparin SUB-Q Not Given Q8HR GEMMA Hydrophilic Ointment 1 applic 03/06/19 04:18 Vaseline Lip Therapy TP Q2HR PRN Dry Lips Insulin Human Lispro 0 unit 03/06/19 06:00 03/11/19 14:06 Humalog SUB-Q Not Given Q6HR [facility] Protocol Multi-Ingred Cream/Lotion/Oil/Oint 1 applic 03/06/19 04:18 Artificial Tears Ophth Oint OU Q4HR PRN Dry Eye(s) Ondansetron HCl 4 mg 03/06/19 05:37 03/10/19 16:36 Zofran IV 4 mg Q8H PRN Administration Nausea And Vomiting Simple Syrup 15 ml 03/06/19 08:25 Simple Syrup FEEDTUBE PRN PRN Hypoglycemia Simple Syrup 30 ml 03/06/19 08:25 Simple Syrup FEEDTUBE PRN PRN Hypoglycemia Sodium Bicarbonate 325 mg 03/06/19 08:25 Sodium Bicarbonate FEEDTUBE PRN PRN For Clogged Feeding Tube Sodium Chloride 10 ml 03/06/19 10:00 03/11/19 10:23 Sodium Chloride Flush Syringe 10 Ml IV Not Given BID GEMMA Sodium Chloride 10 ml 03/06/19 05:37 Sodium Chloride Flush Syringe 10 Ml IV PRN PRN LINE FLUSH Nutrition/Malnutrition Assess - Dietary Evaluation Nutrition/Malnutrition Findings: Nutrition Notes Start: 03/06/19 08:13 Freq: Status: Active Protocol: Document 03/11/19 10:55 CC (Rec: 03/11/19 10:57 CC [email or web address]) Co-Sign 03/11/19 10:55 LP Nutrition Notes Initial or Follow up Reassessment Current Diagnosis Respiratory Failure Other Pertinent Diagnosis Laryngeal CA, AMS, PEG Current Diet Vital 1.2 at 55ml/hr Labs/Tests No new labs Pertinent Medications reviewed Height 5 ft 6 in Weight 61.4 kg [place] Body Weight (kg) 59.09 BMI 21.8 Weight Status Appropriate Subjective/Other Information TF Vital 1.2 running at goal rate of 55ml/hr. Pt tolerating TF. Pt is planned to be transferred to [place] Percent of energy/protein needs met: 100%/100% Burn Absent Trauma Absent GI Symptoms None Difficulty In Swallowing Food Allergy No Current % PO Negligible Minimum of two criteria No #1 Nutrition Diagnosis Inadequate oral intake Diagnosis Progress(for reassessment Continues documentation) Is patient on ventilator? Yes Is Patient Ambulatory and/or Out of Bed No REE-([facility]-confined to bed) 4997.208 Calculation Used for Recommendations [facility] Additional Notes Protein needs are 73-122g (1.2 -2g/kg) Fluid needs are 1ml/kcal Nutrition Intervention Change Diet Order: Continue TF Nutrition Support: Vital 1.2 at 55ml/hr Flush with 100ml q4h Kcal 1,584 Protein (gm) 99 Fluid (mL) 1,071 Goal #1 Continue to meet at least 80% of kcal and protein needs via TF Anticipated Discharge Needs: TF Follow-Up By: 03/18/19 Additional Comments F/U TF tolerance
[2019-03-11] MEDS: ONDANSETRON 4 MG/2 ML INJ IV PRN (17:12)
--- NOTE | 2019-03-11 18:58 | Event Note ---
Date: 03/11/19 Talked to transfer center [place] and d/w [place] physician/environmental permitting specialist. accepted the pt however beds not available at this point. Dr Reyes also discussed the case with them.
[2019-03-11] MEDS ORDERED: LORazepam 2 MG/ML VIAL IV ONE (20:33)
--- NOTE | 2019-03-12 02:46 | XRay Report ---
CHEST 1 VIEW, 03/12/2019 1:58 AM CLINICAL INFORMATION/INDICATION: Respiratory failure COMPARISON: Chest radiograph, 03/10/2019 and 03/11/2019 FINDINGS: SUPPORT DEVICES: Support devices project in stable position. HEART: The cardiac silhouette is normal in size. LUNGS/PLEURA: Minimal opacity at the right lateral lung base appears similar to the previous study. T he left lung remains grossly clear. There is no evidence of pleural effusion or pneumothorax. ADDITIONAL FINDINGS: No additional acute findings. IMPRESSION: 1. Minimal right basilar opacity, unchanged from the previous study. Signer Name: Jocy Monge MD Signed: 03/12/2019 2:41 AM Workstation Name: [email or web address]
[2019-03-12] MEDS: INSULIN LISPRO 100 UNIT/ML SUB-Q SCH ×3 (06:10→14:08)
[2019-03-12] MEDS: HEPARIN 5,000 UNIT/1 ML VIAL SUB-Q SCH ×4 (06:12→21:50)
--- NOTE | 2019-03-12 10:16 | Progress Note ---
Assessment and Plan Acute hypercapnic respiratory failure on MVS Laryngeal carcinoma s/p chemo-radiation Acute toxic-metabolic encephalopathy Oropharyngeal dysphagia s/p PEG (Discussed risk of complete airway occlusion with extubation and need for evaluation by ENT for laryngectomy vs tracheostomy with patient and ) - stop accuchecks - stop scheduled ABG's - stop SSI (accuchecks good till date) - continue Fentanyl & propofol (titrate sedation for RASS 0 to -1) - re-contacted [place] transfer line (apparently needs salvage laryngectomy and not done here) and waiting on a bed - keep intubated fo now (rapidly decompensated with self extubation) - continue daily SAT's and SBT assessment as tolerated in am - VAP bundle addressed - continue Lung protective strategies - continue to wean FIO2 for O2 sats >90% - continue bronchodilators with pulmonary hygiene per RT - daily CXR's & ABG's acutely - continue enteral nutrition and advance to goal rate as tolerated - continue agitation management / Pain management per CPOT - follow clinically off AB's - continue VTE prophylaxis - continue stress ulcer prophylaxis - continue accuchecks with glycemic control for SSI (While critically ill target blood glucose of 140-180 mg/dL; avoid hypoglycemia) - Continue mobility protocol for pressure ulcer prevention - Continue to monitor hemodynamics closely - Monitor electrolyte profile closely and replete as indicated - continue chronic home medications per attending and as clinically indicated .... care plan discussed at length with her at bedside - continue other care per attending / other consultants CONDITION: CRITICAL PROGNOSIS: GUARDED-POOR CODE STATUS: FULL CODE The high probability of a clinically significant, sudden or life-threatening deterioration of the [cardiac, respiratory & neurologic] system(s) required my full and direct attention, intervention and personal management. The aggregate critical care time was [32] minutes without overlap. Time includes spent on; [x] Data Review and interpretation [x] Patient assessment and monitoring of vital signs [x] Documentation [x] Medication orders and management Subjective Date of service: 03/12/19 Principal diagnosis: Ac hypercapnic resp failure; Laryngeal CA Acute encephalopathy (toxic/met) Interval history: Patient is seen today for: Acute hypercapnic respiratory failure; Laryngeal carcinoma s/p chemo-radiation; Acute toxic-metabolic encephalopathy; Oropharyngeal dysphagia; s/p PEG Seen and examined at bedside; 24hour events reviewed; nursing and respiratory care staff consulted; no adverse overnight events reported to me; resting in bed now; STILL AWAITING TRANSFER; REMAINS ON mvs; IN ROOM; no N/V/F/C Objective Vital Signs - 12hr 03/11/19 03/11/19 03/11/19 23:00 23:18 23:48 Temperature 97.5 F L Pulse Rate 84 83 Pulse Rate [ From Monitor] Pulse Rate [ Left Dorsalis Pedis] Pulse Rate [ Right Dorsalis Pedis] Respiratory 17 15 Rate Blood Pressure 144/76 144/76 O2 Sat by Pulse 98 97 Oximetry 03/12/19 03/12/19 03/12/19 00:00 01:00 02:00 Temperature Pulse Rate 77 78 93 H Pulse Rate [ 98 H From Monitor] Pulse Rate [ 98 H Left Dorsalis Pedis] Pulse Rate [ 98 H Right Dorsalis Pedis] Respiratory 16 15 15 Rate Blood Pressure 151/72 146/72 143/79 O2 Sat by Pulse 97 98 97 Oximetry 03/12/19 03/12/19 03/12/19 03:00 03:11 04:00 Temperature 98.4 F Pulse Rate 79 87 76 Pulse Rate [ 69 From Monitor] Pulse Rate [ 69 Left Dorsalis Pedis] Pulse Rate [ 69 Right Dorsalis Pedis] Respiratory 16 21 Rate Blood Pressure 143/79 135/53 128/60 O2 Sat by Pulse 99 98 98 Oximetry 03/12/19 03/12/19 03/12/19 05:00 06:00 07:00 Temperature Pulse Rate 97 H 83 82 Pulse Rate [ From Monitor] Pulse Rate [ Left Dorsalis Pedis] Pulse Rate [ Right Dorsalis Pedis] Respiratory 19 16 17 Rate Blood Pressure 150/78 122/61 129/75 O2 Sat by Pulse 98 97 99 Oximetry 03/12/19 03/12/19 03/12/19 08:00 09:00 10:00 Temperature 99.0 F Pulse Rate 90 99 H 88 Pulse Rate [ 77 From Monitor] Pulse Rate [ Left Dorsalis Pedis] Pulse Rate [ Right Dorsalis Pedis] Respiratory 19 15 17 Rate Blood Pressure 129/75 124/63 126/74 O2 Sat by Pulse 99 99 98 Oximetry Constitutional: alert, appears uncomfortable, other (middle aged AAF, normocephalic and atraumatic with mildly increased resp effort at rest) Eyes: non-icteric ENT: oropharynx moist, other (ETT 23-24 cm LISA) Neck: supple, no lymphadenopathy, no JVD Effort: mildly labored Ascultation: Bilateral: clear, diminished breath sounds, rhonchi (scant) Percussion: Bilateral: not dull Cardiovascular: regular rate and rhythm Gastrointestinal: normoactive bowel sounds, soft, non-tender, non-distended Integumentary: normal Extremities: no cyanosis, no edema, pink and warm, pulses normal, no ischemia or petechiae Neurologic: normal mental status, non-focal exam, pupils equal and round, CN II- XII normal Psychiatric: anxious CBC and BMP: 03/08/19 08:45 03/08/19 08:45 ABG, PT/INR, D-dimer: ABG POC ABG pH 7.425 (7.35-7.45) 03/11/19 04:35 ABG pH 7.395 pH Units (7.350-7.450) 03/09/19 04:34 POC ABG pCO2 49.7 (35-45) H 03/11/19 04:35 ABG pCO2 46.4 mm Hg 03/09/19 04:34 POC ABG pO2 97 (80-105) 03/11/19 04:35 ABG pO2 96.5 mm Hg (80.0-90.0) H 03/09/19 04:34 POC ABG HCO3 32.6 (22-26 mml/L) 03/11/19 04:35 POC ABG Total CO2 34 (23-27mmol/L) 03/11/19 04:35 POC ABG O2 Sat 98 03/11/19 04:35 ABG O2 Saturation 97.3 % (95.0-99.0) 03/09/19 04:34 PT/INR, D-dimer PT 15.2 Sec. (12.2-14.9) H 03/07/19 05:54 INR 1.21 (0.87-1.13) H 03/07/19 05:54 Abnormal lab findings: Abnormal Labs 03/06/19 03/06/19 03/06/19 03:37 05:05 05:18 WBC RDW Plt Count Lymph % (Auto) [place] % (Auto) Lymph # [place] # Seg Neutrophils % Seg Neutrophils # PT INR 1.17 H POC ABG pH POC ABG pCO2 48.9 H POC ABG pO2 393 H ABG pO2 ABG HCO3 ABG Hemoglobin Sodium Potassium Chloride BUN Creatinine Glucose POC Glucose 233 H Lactic Acid Albumin Urine WBC (Auto) 03/06/19 03/06/19 03/06/19 06:34 08:34 23:15 WBC RDW Plt Count Lymph % (Auto) [place] % (Auto) Lymph # [place] # Seg Neutrophils % Seg Neutrophils # PT INR POC ABG pH POC ABG pCO2 POC ABG pO2 ABG pO2 ABG HCO3 ABG Hemoglobin Sodium Potassium Chloride BUN Creatinine Glucose POC Glucose 122 H 110 H Lactic Acid 2.10 H* Albumin Urine WBC (Auto) 03/06/19 03/06/19 03/06/19 Unknown Unknown Unknown WBC 19.7 H RDW 15.5 H Plt Count 458 H Lymph % (Auto) [place] % (Auto) 12.4 H Lymph # [place] # 2.4 H Seg Neutrophils % Seg Neutrophils # 13.1 H PT INR 1.16 H POC ABG pH POC ABG pCO2 POC ABG pO2 ABG pO2 ABG HCO3 ABG Hemoglobin Sodium 135 L Potassium Chloride 91.7 L BUN 44 H Creatinine Glucose 273 H POC Glucose Lactic Acid Albumin 3.6 L Urine WBC (Auto) 03/06/19 03/07/19 03/07/19 Unknown 04:43 05:44 WBC RDW Plt Count Lymph % (Auto) [place] % (Auto) Lymph # [place] # Seg Neutrophils % Seg Neutrophils # PT INR POC ABG pH 7.487 H POC ABG pCO2 POC ABG pO2 131 H ABG pO2 ABG HCO3 ABG Hemoglobin Sodium Potassium Chloride BUN Creatinine Glucose POC Glucose 130 H Lactic Acid Albumin Urine WBC (Auto) 9.0 H 03/07/19 03/07/19 03/07/19 05:54 05:54 05:54 WBC RDW 15.8 H Plt Count Lymph % (Auto) 11.3 L [place] % (Auto) 13.6 H Lymph # 1.0 L [place] # 1.2 H Seg Neutrophils % 73.1 H Seg Neutrophils # PT 15.2 H INR 1.21 H POC ABG pH POC ABG pCO2 POC ABG pO2 ABG pO2 ABG HCO3 ABG Hemoglobin Sodium Potassium 3.5 L Chloride BUN 23 H Creatinine Glucose 123 H POC Glucose Lactic Acid Albumin Urine WBC (Auto) 03/07/19 03/07/19 03/07/19 12:57 18:27 18:41 WBC RDW Plt Count Lymph % (Auto) [place] % (Auto) Lymph # [place] # Seg Neutrophils % Seg Neutrophils # PT INR POC ABG pH 7.461 H POC ABG pCO2 POC ABG pO2 109 H ABG pO2 ABG HCO3 ABG Hemoglobin Sodium Potassium Chloride BUN Creatinine Glucose POC Glucose 108 H 108 H Lactic Acid Albumin Urine WBC (Auto) 03/08/19 03/08/19 03/08/19 00:03 05:33 08:28 WBC RDW Plt Count Lymph % (Auto) [place] % (Auto) Lymph # [place] # Seg Neutrophils % Seg Neutrophils # PT INR POC ABG pH 7.483 H POC ABG pCO2 POC ABG pO2 107 H ABG pO2 ABG HCO3 ABG Hemoglobin Sodium Potassium Chloride BUN Creatinine Glucose POC Glucose 117 H 107 H Lactic Acid Albumin Urine WBC (Auto) 03/08/19 03/08/19 03/08/19 08:45 08:45 12:15 WBC RDW Plt Count Lymph % (Auto) 8.0 L [place] % (Auto) 10.4 H Lymph # 0.6 L [place] # Seg Neutrophils % 79.4 H Seg Neutrophils # PT INR POC ABG pH POC ABG pCO2 POC ABG pO2 ABG pO2 ABG HCO3 ABG Hemoglobin Sodium Potassium 3.3 L Chloride BUN Creatinine 0.6 L Glucose 120 H POC Glucose 197 H Lactic Acid Albumin 2.9 L Urine WBC (Auto) 03/08/19 03/09/19 03/09/19 23:47 04:34 06:18 WBC RDW Plt Count Lymph % (Auto) [place] % (Auto) Lymph # [place] # Seg Neutrophils % Seg Neutrophils # PT INR POC ABG pH POC ABG pCO2 POC ABG pO2 ABG pO2 96.5 H ABG HCO3 27.8 H ABG Hemoglobin 10.7 L Sodium Potassium Chloride BUN Creatinine Glucose POC Glucose 120 H 119 H Lactic Acid Albumin Urine WBC (Auto) 03/09/19 03/09/19 03/09/19 12:13 18:12 23:49 WBC RDW Plt Count Lymph % (Auto) [place] % (Auto) Lymph # [place] # Seg Neutrophils % Seg Neutrophils # PT INR POC ABG pH POC ABG pCO2 POC ABG pO2 ABG pO2 ABG HCO3 ABG Hemoglobin Sodium Potassium Chloride BUN Creatinine Glucose POC Glucose 133 H 120 H 106 H Lactic Acid Albumin Urine WBC (Auto) 03/10/19 03/10/1919 04:22 05:49 12:33 WBC RDW Plt Count Lymph % (Auto) [place] % (Auto) Lymph # [place] # Seg Neutrophils % Seg Neutrophils # PT INR POC ABG pH 7.491 H POC ABG pCO2 POC ABG pO2 149 H ABG pO2 ABG HCO3 ABG Hemoglobin Sodium Potassium Chloride BUN Creatinine Glucose POC Glucose 118 H 113 H Lactic Acid Albumin Urine WBC (Auto) 03/10/19 03/11/19 03/11/19 18:11 01:09 04:35 WBC RDW Plt Count Lymph % (Auto) [place] % (Auto) Lymph # [place] # Seg Neutrophils % Seg Neutrophils # PT INR POC ABG pH POC ABG pCO2 49.7 H POC ABG pO2 ABG pO2 ABG HCO3 ABG Hemoglobin Sodium Potassium Chloride BUN Creatinine Glucose POC Glucose 119 H 109 H Lactic Acid Albumin Urine WBC (Auto) 03/11/19 03/11/19 03/12/19 14:09 17:47 05:36 WBC RDW Plt Count Lymph % (Auto) [place] % (Auto) Lymph # [place] # Seg Neutrophils % Seg Neutrophils # PT INR POC ABG pH POC ABG pCO2 POC ABG pO2 ABG pO2 ABG HCO3 ABG Hemoglobin Sodium Potassium Chloride BUN Creatinine Glucose POC Glucose 110 H 122 H 126 H Lactic Acid Albumin Urine WBC (Auto) Allied health notes reviewed: nursing
[2019-03-12] MEDS: FAMOTIDINE 20 MG TAB PO SCH ×2 (10:25→21:50)
--- NOTE | 2019-03-12 10:31 | Progress Note ---
Assessment and Plan Assessment and plan: -- Respiratory distress Current Visit: Yes Status: Acute Plan to address problem: Patient has known history of laryngeal cancer She is currently intubated secondary to the respiratory distress. Pulmonology/[facility] following Awaiting transfer to [facility][ENT] -- Laryngeal cancer Current Visit: Yes Status: Acute Plan to address problem: She is status post radiation and chemotherapy. Waiting for Laryngectomy. Talked with [facility]. Patient was following with [facility] till May 2018 and changed her care to [facility].Details at [facility] not available. -- Dehydration Current Visit: Yes Status: Acute Plan to address problem: She is placed on IV fluid normal saline. Will monitor BUN and creatinine. --Hyperglycemia Current Visit: Yes Status: Acute Plan to address problem: Patient does not have any known history of diabetes mellitus however she was found to be hyperglycemic. Sliding scale insulin. We will monitor blood glucose closely. We will also check hemoglobin A1c. -- DVT prophylaxis Current Visit: Yes Status: Acute subcutaneous heparin. --Full code status Current Visit: Yes Status: Acute DC and transfer to [facility] when bed is available. Cr.Care time 34 min History Interval history: Patient seen and examined medical records reviewed Patient is orally intubated on ventilatory support Alert and awake responding appropriately Vital signs noted Awaiting transfer to [facility] Hospitalist Physical - Constitutional Vitals: Temp Pulse Resp BP Pulse Ox 99.0 F 88 17 126/74 98 03/12/19 08:00 03/12/19 10:00 03/12/19 10:00 03/12/19 10:00 03/12/19 10:00 General appearance: Present: no acute distress, well-nourished, other (intubated on vent) - EENT Eyes: Present: PERRL, EOM intact - Neck Neck: Present: supple, normal ROM - Respiratory Respiratory effort: normal Respiratory: bilateral: diminished, rhonchi, negative: rales, wheezing - Cardiovascular Rhythm: regular Heart Sounds: Present: S1 & S2 - Extremities Extremities: no ischemia, No edema - Abdominal General gastrointestinal: soft, non-tender, non-distended, normal bowel sounds - Integumentary Integumentary: Present: clear, warm - Psychiatric Psychiatric: appropriate mood/affect, cooperative - Neurologic Neurologic: moves all extremities Results - Labs CBC & Chem 7: 03/08/19 08:45 03/08/19 08:45 Labs: Laboratory Last Values WBC 7.4 K/mm3 (4.5-11.0) 03/08/19 08:45 RBC 4.08 M/mm3 (3.65-5.03) 03/08/19 08:45 Hgb 12.1 gm/dl (10.1-14.3) 03/08/19 08:45 Hct 36.2 % (30.3-42.9) 03/08/19 08:45 MCV 89 fl (79-97) 03/08/19 08:45 MCH 30 pg (28-32) 03/08/19 08:45 MCHC 33 % (30-34) 03/08/19 08:45 RDW 15.1 % (13.2-15.2) 03/08/19 08:45 Plt Count 331 K/mm3 (140-440) 03/08/19 08:45 Lymph % (Auto) 8.0 % (13.4-35.0) L 03/08/19 08:45 [place] % (Auto) 10.4 % (0.0-7.3) H 03/08/19 08:45 Eos % (Auto) 1.6 % (0.0-4.3) 03/08/19 08:45 Baso % (Auto) 0.6 % (0.0-1.8) 03/08/19 08:45 Lymph # 0.6 K/mm3 (1.2-5.4) L 03/08/19 08:45 [place] # 0.8 K/mm3 (0.0-0.8) 03/08/19 08:45 Eos # 0.1 K/mm3 (0.0-0.4) 03/08/19 08:45 Baso # 0.0 K/mm3 (0.0-0.1) 03/08/19 08:45 Seg Neutrophils % 79.4 % (40.0-70.0) H 03/08/19 08:45 Seg Neutrophils # 5.9 K/mm3 (1.8-7.7) 03/08/19 08:45 PT 15.2 Sec. (12.2-14.9) H 03/07/19 05:54 INR 1.21 (0.87-1.13) H 03/07/19 05:54 APTT 32.6 Sec. (24.2-36.6) 03/07/19 05:54 POC ABG pH 7.425 (7.35-7.45) 03/11/19 04:35 ABG pH 7.395 pH Units (7.350-7.450) 03/09/19 04:34 POC ABG pCO2 49.7 (35-45) H 03/11/19 04:35 ABG pCO2 46.4 mm Hg 03/09/19 04:34 POC ABG pO2 97 (80-105) 03/11/19 04:35 ABG pO2 96.5 mm Hg (80.0-90.0) H 03/09/19 04:34 POC ABG HCO3 32.6 (22-26 mml/L) 03/11/19 04:35 ABG HCO3 27.8 mmol/L (20.0-26.0) H 03/09/19 04:34 POC ABG Total CO2 34 (23-27mmol/L) 03/11/19 04:35 POC ABG O2 Sat 98 03/11/19 04:35 ABG O2 Saturation 97.3 % (95.0-99.0) 03/09/19 04:34 ABG O2 Content 14.5 (0.0-44) 03/09/19 04:34 POC ABG Base Excess 8 ((-2) - (+3)mmol/L) 03/11/19 04:35 ABG Base Excess 2.4 mmol/L (-2.0-3.0) 03/09/19 04:34 ABG Hemoglobin 10.7 gm/dl (12.0-16.0) L 03/09/19 04:34 ABG Carboxyhemoglobin 1.2 % (0.0-5.0) 03/09/19 04:34 ABG Methemoglobin 0.0 % (0.0-1.5) 03/09/19 04:34 Oxyhemoglobin 96.1 % (95.0-99.0) 03/09/19 04:34 FiO2 30 % 03/11/19 04:35 Sodium 141 mmol/L (137-145) 03/08/19 08:45 Potassium 3.3 mmol/L (3.6-5.0) L 03/08/19 08:45 Chloride 102.2 mmol/L (98-107) 03/08/19 08:45 Carbon Dioxide 24 mmol/L (22-30) 03/08/19 08:45 Anion Gap 18 mmol/L 03/08/19 08:45 BUN 15 mg/dL (7-17) 03/08/19 08:45 Creatinine 0.6 mg/dL (0.7-1.2) L 03/08/19 08:45 Estimated GFR > 60 ml/min 03/08/19 08:45 BUN/Creatinine Ratio 25 % 03/08/19 08:45 Glucose 120 mg/dL (65-100) H 03/08/19 08:45 POC Glucose 126 (70-105) H 03/12/19 05:36 Hemoglobin A1c 5.6 % (4-6) 03/06/19 10:53 Lactic Acid 0.90 mmol/L (0.7-2.0) 03/06/19 10:53 Calcium 9.1 mg/dL (8.4-10.2) 03/08/19 08:45 Total Bilirubin < 0.20 mg/dL (0.1-1.2) 03/08/19 08:45 AST 22 units/L (5-40) 03/08/19 08:45 ALT 14 units/L (7-56) 03/08/19 08:45 Alkaline Phosphatase 100 units/L (35-129) 03/08/19 08:45 Troponin T < 0.010 ng/mL (0.00-0.029) 03/06/19 Unknown Total Protein 6.6 g/dL (6.3-8.2) 03/08/19 08:45 Albumin 2.9 g/dL (3.9-5) L 03/08/19 08:45 Albumin/Globulin Ratio 0.8 % 03/08/19 08:45 Urine Color Yellow (Yellow) 03/06/19 Unknown Urine Turbidity Hazy (Clear) 03/06/19 Unknown Urine pH 5.0 (5.0-7.0) 03/06/19 Unknown Ur Specific [place] 1.015 (1.003-1.030) 03/06/19 Unknown Urine Protein 100 mg/dl mg/dL (Negative) 03/06/19 Unknown Urine Glucose (UA) 50 mg/dL (Negative) 03/06/19 Unknown Urine Ketones Neg mg/dL (Negative) 03/06/19 Unknown Urine Blood Neg (Negative) 03/06/19 Unknown Urine Nitrite Neg (Negative) 03/06/19 Unknown Urine Bilirubin Neg (Negative) 03/06/19 Unknown Urine Urobilinogen < 2.0 mg/dL (<2.0) 03/06/19 Unknown Ur Leukocyte Esterase Neg (Negative) 03/06/19 Unknown Urine WBC (Auto) 9.0 /HPF (0.0-6.0) H 03/06/19 Unknown Urine RBC (Auto) 3.0 /HPF (0.0-6.0) 03/06/19 Unknown U Epithel Cells (Auto) 1.0 /HPF (0-13.0) 03/06/19 Unknown Urine Bacteria (Auto) 1+ /HPF (Negative) 03/06/19 Unknown Granular Casts 3 /LPF 03/06/19 Unknown Urine Mucus Few /HPF 03/06/19 Unknown Active Medications - Current Medications Current Medications: Generic Name Dose Route Start Last Admin Trade Name Freq PRN Reason Stop Dose Admin Acetaminophen 650 mg 03/08/19 00:51 03/08/19 09:00 Tylenol FEEDTUBE 650 mg Q6H PRN Administration Pain, Mild (1-3) Albuterol 2.5 mg 03/06/19 05:37 Proventil IH Q3HRT PRN Shortness Of Breath Lipase/Protease/Amylase 1 each 03/06/19 08:[address] 10,500 Unit FEEDTUBE PRN PRN For Clogged Feeding Tube Dextrose 0 ml 03/06/19 06:26 D50w (25gm) Syringe IV Q30MIN PRN Hypoglycemia Protocol Famotidine 20 mg 03/07/19 10:00 03/12/19 10:25 Pepcid PO 20 mg BID GEMMA Administration Heparin Sodium (Porcine) 5,000 unit 03/06/19 06:00 03/12/19 07:18 Heparin SUB-Q Not Given Q8HR [facility] Hydrophilic Ointment 1 applic 03/06/19 04:18 Vaseline Lip Therapy TP Q2HR PRN Dry Lips Insulin Human Lispro 0 unit 03/06/19 06:00 03/12/19 06:10 Humalog SUB-Q Not Given Q6HR [facility] Protocol Multi-Ingred Cream/Lotion/Oil/Oint 1 applic 03/06/19 04:18 Artificial Tears Ophth Oint OU Q4HR PRN Dry Eye(s) Ondansetron HCl 4 mg 03/06/19 05:37 03/11/19 17:12 Zofran IV 4 mg Q8H PRN Administration Nausea And Vomiting Simple Syrup 15 ml 03/06/19 08:25 Simple Syrup FEEDTUBE PRN PRN Hypoglycemia Simple Syrup 30 ml 03/06/19 08:25 Simple Syrup FEEDTUBE PRN PRN Hypoglycemia Sodium Bicarbonate 325 mg 03/06/19 08:25 Sodium Bicarbonate FEEDTUBE PRN PRN For Clogged Feeding Tube Sodium Chloride 10 ml 03/06/19 10:00 03/12/19 10:25 Sodium Chloride Flush Syringe 10 Ml IV 10 ml BID GEMMA Administration Sodium Chloride 10 ml 03/06/19 05:37 Sodium Chloride Flush Syringe 10 Ml IV PRN PRN LINE FLUSH Nutrition/Malnutrition Assess - Dietary Evaluation Nutrition/Malnutrition Findings: Nutrition Notes Start: 03/06/19 08:13 Freq: Status: Active Protocol: Document 03/11/19 10:55 CC (Rec: 03/11/19 10:57 CC [id number]) Co-Sign 03/11/19 10:55 LP Nutrition Notes Initial or Follow up Reassessment Current Diagnosis Respiratory Failure Other Pertinent Diagnosis Laryngeal CA, AMS, PEG Current Diet Vital 1.2 at 55ml/hr Labs/Tests No new labs Pertinent Medications reviewed Height 5 ft 6 in Weight 61.4 kg [place] Body Weight (kg) 59.09 BMI 21.8 Weight Status Appropriate Subjective/Other Information TF Vital 1.2 running at goal rate of 55ml/hr. Pt tolerating TF. Pt is planned to be transferred to [facility] Percent of energy/protein needs met: 100%/100% Burn Absent Trauma Absent GI Symptoms None Difficulty In Swallowing Food Allergy No Current % PO Negligible Minimum of two criteria No #1 Nutrition Diagnosis Inadequate oral intake Diagnosis Progress(for reassessment Continues documentation) Is patient on ventilator? Yes Is Patient Ambulatory and/or Out of Bed No REE-([facility]-confined to bed) [phone] Calculation Used for Recommendations [facility] Additional Notes Protein needs are 73-122g (1.2 -2g/kg) Fluid needs are 1ml/kcal Nutrition Intervention Change Diet Order: Continue TF Nutrition Support: Vital 1.2 at 55ml/hr Flush with 100ml q4h Kcal 1,584 Protein (gm) 99 Fluid (mL) 1,071 Goal #1 Continue to meet at least 80% of kcal and protein needs via TF Anticipated Discharge Needs: TF Follow-Up By: 03/18/19 Additional Comments F/U TF tolerance
--- NOTE | 2019-03-12 13:03 | Hem/Onc Progress Note ---
Assessment and Plan 1. 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 The patient had undergone ENT evaluation recently, which showed persistent tumor. Referral to [place] was done. There is a question of going to [facility]. Stridor, hence, intubated. 2. PEG tube. 3. Port present. 4. Hyperglycemia. 5. The patient was requesting extubation and discharged. I will follow the patient during inpatient stay. transfer to [place] pending - Patient Problems (1) Laryngeal cancer Status: Acute Subjective Date of service: 03/12/19 Principal diagnosis: throat cancer Interval history: stable- waiting [facility] Objective - Exam Narrative Exam: Pain - none General appearance - awake Performance status dependent Eyes - no icterus ENT - intubated LNs cervical not palpable Neck - no LN Respiratory Normal Breath sounds - CTA anteriorly CVS S1 S2 + Extremities no edema General GI Soft - PEG + Rectal deferred female - deferred Skin warm PORT + Musculoskeletal - moving limbs Neurologically awake - Constitutional Vitals: Last Vital Signs Temp 99.0 F 03/12/19 08:00 Pulse 75 03/12/19 12:00 Resp 18 03/12/19 12:00 BP 111/63 03/12/19 12:00 Pulse Ox 97 03/12/19 12:00 - Labs Lab Results: Laboratory Results - last 24 hr 03/11/19 03/11/19 03/12/19 14:09 17:47 05:36 POC Glucose 110 H 122 H 126 H Medications & Allergies - Medications Allergies/Adverse Reactions: Allergies No Known Allergies Allergy (Unverified 03/06/19 03:42) Home Medications: Home Medications Medication Instructions Recorded Confirmed Last Taken Type Gabapentin 300 mg PO TID 03/06/19 03/06/19 03/05/19 17:00 History 300 mg ALBUTEROL NEB's [Proventil 0.083% 2.5 mg IH Q3HRT PRN nebu 03/12/19 Unknown Rx NEBS] Famotidine [Pepcid] 20 mg PO BID tablet 03/12/19 Unknown Rx Lipase/Protease/Amylase [Pancreaze 1 each FEEDTUBE PRN PRN capsule 03/12/[address] 10,500 Unit] Min Oil/Petrolatum [Artificial 1 applic OU Q4HR PRN tube 03/12/19 Unknown Rx Tears Ophth Oint] Petrolatum,White [Vaseline Lip 1 applic TP Q2HR PRN tube 03/12/19 Unknown Rx Therapy] Simple Syrup 15 ml FEEDTUBE PRN PRN oral.liqd 03/12/19 Unknown Rx Simple Syrup 30 ml FEEDTUBE PRN PRN oral.liqd 03/12/19 Unknown Rx Sodium Bicarbonate 325 mg FEEDTUBE PRN PRN tablet 03/12/19 Unknown Rx Sodium Chloride 0.9% Int [Sodium 10 ml IV BID syringe 03/12/19 Unknown Rx Chloride Flush Syringe 10 ml] Sodium Chloride 0.9% Int [Sodium 10 ml IV PRN PRN syringe 03/12/19 Unknown Rx Chloride Flush Syringe 10 ml] Active Medications: Generic Name Dose Route Start Last Admin Trade Name Freq PRN Reason Stop Dose Admin Acetaminophen 650 mg 03/08/19 00:51 03/08/19 09:00 Tylenol FEEDTUBE 650 mg Q6H PRN Administration Pain, Mild (1-3) Albuterol 2.5 mg 03/06/19 05:37 Proventil IH Q3HRT PRN Shortness Of Breath Lipase/Protease/Amylase 1 each 03/06/19 08:25 Pancreflako Dill 10,500 Unit FEEDTUBE PRN PRN For Clogged Feeding Tube Dextrose 0 ml 03/06/19 06:26 D50w (25gm) Syringe IV Q30MIN PRN Hypoglycemia Protocol Famotidine 20 mg 03/07/19 10:00 03/12/19 10:25 Pepcid PO 20 mg BID GEMMA Administration Heparin Sodium (Porcine) 5,000 unit 03/06/19 06:00 03/12/19 07:18 Heparin SUB-Q Not Given Q8HR [facility] Hydrophilic Ointment 1 applic 03/06/19 04:18 Vaseline Lip Therapy TP Q2HR PRN Dry Lips Insulin Human Lispro 0 unit 03/06/19 06:00 03/12/19 06:10 Humalog SUB-Q Not Given Q6HR [facility] Protocol Multi-Ingred Cream/Lotion/Oil/Oint 1 applic 03/06/19 04:18 Artificial Tears Ophth Oint OU Q4HR PRN Dry Eye(s) Ondansetron HCl 4 mg 03/06/19 05:37 03/11/19 17:12 Zofran IV 4 mg Q8H PRN Administration Nausea And Vomiting Simple Syrup 15 ml 03/06/19 08:25 Simple Syrup FEEDTUBE PRN PRN Hypoglycemia Simple Syrup 30 ml 03/06/19 08:25 Simple Syrup FEEDTUBE PRN PRN Hypoglycemia Sodium Bicarbonate 325 mg 03/06/19 08:25 Sodium Bicarbonate FEEDTUBE PRN PRN For Clogged Feeding Tube Sodium Chloride 10 ml 03/06/19 10:00 03/12/19 10:25 Sodium Chloride Flush Syringe 10 Ml IV 10 ml BID GEMMA Administration Sodium Chloride 10 ml 03/06/19 05:37 Sodium Chloride Flush Syringe 10 Ml IV PRN PRN LINE FLUSH
[2019-03-12] MEDS ORDERED: SIMETHICONE 80 MG CHEW TAB FEEDTUBE PRN (15:22)
--- NOTE | 2019-03-12 17:25 | Discharge Summary ---
Providers - Providers Date of Admission: 03/06/19 05:47 Date of discharge: 03/12/19 Attending physician: MAURICIO WARNER 03/06/19 04:18 Consult to Dietitian/Nutrition [CONS] Routine Physician Instructions: Reason For Exam: Reason for Consult: Evaluate nutritional intake 03/06/19 05:04 Consult to Physician [CONS] Urgent Comment: Consulting Provider: ARMANI SON Physician Instructions: Reason For Exam: intubated, laryngeal cancer, resp distress 03/06/19 05:37 Consult to Dietitian/Nutrition [CONS] Routine Physician Instructions: Reason For Exam: Reason for Consult: Write/Manage Tube Feeding 03/08/19 08:02 Consult to Physician [CONS] Routine Comment: Consulting Provider: LEONARDO IBANEZ Physician Instructions: Reason For Exam: Laryngeal cancer Primary care physician: MARKETING SECRETARY Hospitalization Reason for admission: Acute respiratory failure/altered level of consciousness/laryngeal cancer Condition: Fair Pertinent studies: Multiple chest x-rays Hospital course: 58-year-old female with a past medical history laryngeal cancer diagnosed mar 2018 presents to the hospital on 03/06/19 with respiratory distress and altered mental status. Patient became less responsive, was transported by EMS and arrives on supplemental oxygen mask satting 96% with tachypnea, stridor, and accessory muscle use. Patient is not responsive to painful stimuli. She cannot speak at her baseline and presents with a PEG tube. Patient completed chemotherapy and radiation in December. She was just seen 2 days ago on the by her ENT doctor. Her has pictures on his phone of the patient's larynx which shows cancerous lesions at the vocal cords. ENT doctor is affiliated with [facility]. Patient was intubated and admitted to ICU, evaluated by hematology oncologist, pulmonary critical, stabilized [facility] does not have ENT services, contacted [facility] for transfer , accepted by ENT however no ICU beds available Today [place] transfer center contacted me and informed that they have accepted the transfer. Today patient is comfortable intubated on vent, alert and awake responding appropriately On PEG feeds, hemodynamically stable for transfer -- Respiratory distress/stridor[ on admission] Current Visit: Yes Status: Acute Patient has known history of laryngeal cancer She is currently intubated secondary to the respiratory distress. Pulmonology/Security And Compliance Analyst following Awaiting transfer to [place][ENT], ICU --H/O Laryngeal cancer Current Visit: Yes Status: Acute S/P radiation and chemotherapy. Waiting for Laryngectomy. Patient was following with [place] till May 2018 and changed her care to [facility].Details at [facility] not available. Spoke with [place] [facility] and Transfer center.Accepted for transfer. --Oropharyngeal dysphagia: Secondary to laryngeal cancer, Continue PEG feeds --Metabolic encephalopathy: Present on admission Patient is more alert and awake --Severe malnutrition/hypoalbuminemia: Nutrition supplements, nutrition consult -- DVT prophylaxis Current Visit: Yes Status: Acute . subcutaneous heparin. --Full code status DC and transfer to [place] when bed is available. Cr.Care time 35 min Disposition: DC/[place]-70 ANOTHER TYPE HLTHCARE Time spent for discharge: 32 min Core Measure Documentation - Palliative Care Palliative Care/ Comfort Measures: Not Applicable - Core Measures Any of the following diagnoses?: none Exam - Constitutional Vitals: Temp Pulse Resp BP Pulse Ox 99.5 F 85 17 131/65 98 03/12/19 12:00 03/12/19 17:00 03/12/19 17:00 03/12/19 17:00 03/12/19 17:00 General appearance: Present: no acute distress, well-nourished - EENT Eyes: Present: PERRL, EOM intact - Neck Neck: Present: supple, normal ROM - Respiratory Respiratory effort: normal Respiratory: bilateral: diminished, rhonchi, negative: rales, wheezing - Cardiovascular Rhythm: regular Heart Sounds: Present: S1 & S2 - Extremities Extremities: no ischemia, No edema - Abdominal General gastrointestinal: Present: soft, non-tender, non-distended, normal bowel sounds, other (PEG tube in place) - Integumentary Integumentary: Present: clear, warm - Musculoskeletal Musculoskeletal: strength equal bilaterally - Psychiatric Psychiatric: appropriate mood/affect, cooperative - Neurologic Neurologic: moves all extremities Plan Activity: advance as tolerated Diet: other (PEG feeds per protocol) Additional Instructions: Transfer to [facility] for further evaluation and management by ENT Follow up with: PRIMARY MD YUMIKO [Primary Care Provider] - 7 Days Forms: Discharge Signature Page
[2019-03-12 22:20] VITALS: BP 126/73
== END 2019-03-12 22:35 | disposition short-term general hospital (02) | DRG 207 ==
LOC: ED 03:20 → CC1 05:47
PROVIDERS: ADMIT Internal Medicine Geriatric Medicine; ATTEND Internal Medicine
PROC: 5A1955Z Respiratory Ventilation, Greater than 96 Consecutive Hours (ICD-10-PCS; principal; 2019-03-06)
PROC: 0BH17EZ Insertion of Endotracheal Airway into Trachea, Via Natural or Artificial Opening (ICD-10-PCS; 2019-03-06)
PROC: 4A033R1 Measurement of Arterial Saturation, Peripheral, Percutaneous Approach (ICD-10-PCS; 2019-03-07)
DX: J96.02 Acute respiratory failure with hypercapnia (principal); G92 Toxic encephalopathy; E43 Unspecified severe protein-calorie malnutrition; R73.9 Hyperglycemia, unspecified; E86.0 Dehydration; R13.12 Dysphagia, oropharyngeal phase; C32.9 Malignant neoplasm of larynx, unspecified; Z92.21 Personal history of antineoplastic chemotherapy; Z93.1 Gastrostomy status; Z87.891 Personal history of nicotine dependence; Z68.21 Body mass index [BMI] 21.0-21.9, adult; Z92.3 Personal history of irradiation
CPT/HCPCS: 31500; 36415; 36600; 71045; 80048; 80053; 81001; 82140; 82803; 82962; 83036; 84484; 85025; 85610; 85730; 87040; 87070; 87086; 87205; 93005; 93010; 94002; 94003; 96374; 96375; G0378; J1644; J1815; J1956; J2001; J2060; J2250; J2310; J2405; J2543; J2704; J3010; J3480; J7030; Q0163